=== PATIENT | male | born 1955 | race Caucasian/White ===

== ENCOUNTER 2017-07-03 07:48 | Day surgery (SDC) | payer OTHER, MEDICARE, SELFPAY | END 2017-07-03 09:20 | disposition home or self-care (01) | PROVIDERS: Family Provider Family Medicine; Visit Provider Internal Medicine Gastroenterology | DX: Z12.11 Encounter for screening for malignant neoplasm of colon (principal); K63.5 Polyp of colon; K57.30 Diverticulosis of large intestine without perforation or abscess without bleeding; K64.1 Second degree hemorrhoids | CPT/HCPCS: 45380 ==

== ENCOUNTER → 2017-09-29 09:34 | Outpatient (CLI) | payer OTHER, MEDICARE, SELFPAY ==
--- NOTE | 2017-09-29 09:46 | XR_ITS ---
EXAM: XR lumbar spine min 4V HISTORY: ITS.REASON: INSTABILITY RT KNEE,LOW BACK PAIN,RT HIP PAIN ORDERING PHYSICIAN: Vivi Connell PATIENT AGE: 62 years COMPARISON: None FINDINGS: There is normal alignment. There is diffuse calcification of the anterior longitudinal ligament in the lower thoracic spine and upper lumbar spine with bridging anterior osteophytes in the lumbar spine. No fracture or dislocation is evident. There is mild multilevel degenerative disc disease in the lumbar spine. No lytic changes. Incidental note is made of bilateral nephrolithiasis measuring up to 5 mm in the mid polar region on the left. There is also sclerosis of the superior aspect of the SI joints. Multiple surgical clips are present in the right abdomen. There is mild kyphosis of the lower thoracic spine. IMPRESSION: 1. Multiple bridging osteophytes with anterior longitudinal ligament calcification and fusion of the superior aspect of the SI joints. These findings are suggestive of ankylosing spondylitis. Imaging differential diagnosis would include diffuse idiopathic skeletal hyperostosis. 2. Bilateral nephrolithiasis
--- NOTE | 2017-09-29 09:46 | XR_ITS ---
XR knee RT 3V HISTORY: ITS.REASON: INSTABILITY RT KNEE,LOW BACK PAIN,RT HIP PAIN ORDERING PHYSICIAN: Vivi Connell PATIENT AGE: 62 years COMPARISON: None FINDINGS: There are moderate tricompartmental osteoarthritic changes of the lateral compartment and patellofemoral joint with mild osteoarthritis of the medial compartment. No fracture or dislocation. No lytic or blastic change. IMPRESSION: Osteoarthritis of the right knee
--- NOTE | 2017-09-29 09:46 | XR_ITS ---
XR hip RT 2-3V w/pelvis HISTORY: ITS.REASON: INSTABILITY RT KNEE,LOW BACK PAIN,RT HIP PAIN ORDERING PHYSICIAN: Vivi Connell PATIENT AGE: 62 years COMPARISON: None FINDINGS: Moderate osteoarthritic changes are present involving the right hip with decrease in the joint space and moderate osteophyte formation. No fracture or dislocation. No lytic or blastic change. Incidental note made of moderate osteoarthritis of the left hip seen on the AP view of the pelvis. IMPRESSION: Moderate osteoarthritic changes of the hips.
== END ==
PROVIDERS: PCP Family Medicine; Visit Provider Nurse Practitioner Family
DX: M23.51 Chronic instability of knee, right knee (principal); M54.5 Low back pain
CPT/HCPCS: 72110; 73502; 73562

== ENCOUNTER → 2017-10-14 08:33 | Outpatient (CLI) | payer OTHER, MEDICARE, SELFPAY ==
--- NOTE | 2017-10-14 08:35 | MR_ITS ---
MR lumbar spine wo con, MR 3-d myelogram/MRCP HISTORY: PT States Rt hip, leg pain X 2 months. Rt knee pain x years. Lt foot numbness and tingling. ITS.REASON: ABNORMAL X-RAY, ANKYLOSING SPONDYLITIS OF LUMBAR REGION ORDERING PHYSICIAN: En Lawrence MD PATIENT AGE: 62 years COMPARISON: Prior X-ray 09-29-17 TECHNIQUE: Standard multiplanar multiecho sequences are performed without contrast. 3-D MIP and myelographic images are also rendered and reviewed FINDINGS: There is normal alignment. The spinal cord ends at the T12 level. There is ankylosis of the lower thoracic spine and upper lumbar spine to the L2-L3 level. With isointensity of the disc spaces at T11-T12 and T12-L1 T11-T12, T12-L1, L1-L2, L2-L3: Degenerative disc disease present at these levels. Mild facet and ligamentum hypertrophy at L2-L3. L3-L4: Mild concentric bulging disc along with facet and ligamentum hypertrophy with mild bilateral foraminal narrowing. There is increased T2 signal involving the posterior and central aspect of the disc suggest a small annular tear. L4-5: Mild concentric bulging disc slightly eccentric towards the right with facet hypertrophic change. L5-S1: Unremarkable. No disc herniation or canal stenosis. IMPRESSION: 1. 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 2. Mild lumbar spondylosis as described above with minimal bulging disc, degenerative disc disease and facet ligamentum flavum hypertrophy. Please see above for detailed description at each level 3. No canal stenosis or disc herniation evident IMPRESSION:
== END ==
PROVIDERS: Family Provider Family Medicine; PCP Family Medicine; Visit Provider Family Medicine
DX: R93.8 Abnormal findings on diagnostic imaging of other specified body structures (principal); M45.6 Ankylosing spondylitis lumbar region
CPT/HCPCS: 72148; 76376

== ENCOUNTER → 2019-09-05 09:16 | Outpatient (CLI) | payer OTHER, MEDICARE, SELFPAY ==
--- NOTE | 2019-09-05 09:32 | ECG_ITS ---
APPROVED REPORT Exam: Resting ECG HR:62 bpm ECG Measurements Heart Rate 62 AXES LA 156 P 10 QRSd 82 QRS 26 QT 376 T 2 QTc 381 <Conclusion> Normal sinus rhythm Normal ECG Electronically signed by : Piyush Yee, 09/05/2019 11:47:57
[2019-09-05 14:32] LABS: Basophils % 0.5 % (0.1-2.0); Eosinophils # 0.2 K/mm3 (0.0-0.4); Hematocrit 42.5 % (42.0-52.0); Hemoglobin 14.2 g/dL (14.1-18.0); Lymphocytes % 13.4 % (10-50); Mean Corpuscular HGB Conc 33.3 g/dL (31.8-35.4); Mean Corpuscular Hemoglobin 30.5 pg (27.0-31.2); Mean Corpuscular Volume 91.4 fl (80-94); Monocytes # 0.3 K/mm3 (0.1-1.0); Neutrophils # 6.1 K/mm3 (1.8-7.8); Neutrophils % 79.2 % (37.0-80.0); Platelet Count 207 K/mm3 (142-424); Red Blood Count 4.65 M/mm3 (4.60-6.20); Red Cell Distribution Width 14.5 % (11.5-17.5); White Blood Count 7.6 K/mm3 (4.8-10.8)
[2019-09-05 17:23] LABS: Alanine Aminotransferase 34 U/L (12-78); Albumin Level 3.9 g/dl (3.5-5.0); Albumin/Globulin Ratio 1.6 (1.1-1.8); Alkaline Phosphatase 92 U/L (38-126); Anion Gap 10.2 mEq/L (5-15); Aspartate Amino Transferase 31 U/L (17-59); Bilirubin,Total 0.3 mg/dl (0.2-1.3); Blood Urea Nitrogen 15 mg/dl (9-20); Calcium 9.7 mg/dl (8.4-10.2); Carbon Dioxide 28 mmol/L (22.0-30.0); Chloride 108 mmol/L (98-107); Estimated Glomerular Filt Rate 55 ml/min (>60); GFR (African American) 67 ML/MIN (>60); Globulin 2.4 g/dL (1.3-3.2); Glucose 157 mg/dl (74-100); HDL Cholesterol 49 mg/dl (40-60); Potassium 4.2 mmoL/L (3.5-5.1); Sodium 142 mmol/L (136-145); Total Protein,Serum 6.3 g/dl (6.3-8.2)
[2019-09-05 17:24] LABS: Chol/HDL Ratio 3.5 (1-3.5); Cholesterol 171 mg/dl (140-200); Triglycerides 176 mg/dl (30-150); VLDL Cholesterol 35 mg/dL (0-40)
[2019-09-05 17:34] LABS: Direct LDL Cholesterol 102.44 mg/dL (100-129)
[2019-09-05 17:41] LABS: Troponin I < 0.01 ng/ml (0.00-0.034)
[2019-09-05 17:54] LABS: Thyroid Stimulating Hormone 2.59 uIU/mL (0.465-4.68)
[2019-09-05 20:39] LABS: Hemoglobin A1C 8.1 % (4.0-6.0)
== END ==
PROVIDERS: PCP Nurse Practitioner Family; Visit Provider Nurse Practitioner Family
DX: R07.9 Chest pain, unspecified (principal); E11.9 Type 2 diabetes mellitus without complications
CPT/HCPCS: 36415; 80053; 80061; 83036; 84443; 84484; 85025; 93005

== ENCOUNTER → 2020-10-25 16:16 | Outpatient (CLI) | payer OTHER, MEDICARE, SELFPAY ==
[2020-10-25 16:33] LABS: Basophils % 0.4 % (0.1-2.0); Eosinophils # 0.2 K/mm3 (0.0-0.4); Eosinophils % 1.8 % (0.1-12.0); Hematocrit 46.3 % (42.0-52.0); Lymphocytes # 1.2 K/mm3 (0.7-4.5); Lymphocytes % 11.9 % (10-50); Mean Corpuscular HGB Conc 32.4 g/dL (31.8-35.4); Mean Corpuscular Hemoglobin 29.9 pg (27.0-31.2); Mean Corpuscular Volume 92.1 fl (80-94); Mean Platelet Volume 8.2 fl (7.4-10.4); Monocytes # 0.4 K/mm3 (0.1-1.0); Monocytes % 4.3 % (1.7-9.3); Neutrophils # 7.9 K/mm3 (1.8-7.8); Neutrophils % 81.6 % (37.0-80.0); Platelet Count 221 K/mm3 (142-424); Red Blood Count 5.03 M/mm3 (4.60-6.20); Red Cell Distribution Width 15.2 % (11.5-17.5); White Blood Count 9.7 K/mm3 (4.8-10.8)
--- NOTE | 2020-10-25 16:33 | XR_ITS ---
PROCEDURE: XR FOREARM LT 2V CLINICAL INDICATION: LOCALIZED SWELLING OF LT FOREARM COMPARISON: No exams were available for comparison FINDINGS: No fracture or dislocation. No lytic or blastic change. There is normal mineralization. The joint spaces are well-preserved. No significant degenerative/arthritic changes. No erosive changes evident. Other findings:Soft tissue swelling is present along the dorsal and proximal aspect of the forearm. No obvious radiopaque foreign body or soft tissue gas. IMPRESSION: Soft tissue swelling otherwise negative Dictated by: Ricardo Awan MD 10/25/2020 17:08 Ricardo Awan MD in [place] 10/25/2020 17:08
[2020-10-25 17:12] LABS: Erythrocyte Sedimentation Rate 16 mm/hr (0-20)
[2020-10-25 18:11] LABS: Uric Acid 8.1 mg/dl (3.5-8.5)
== END ==
PROVIDERS: PCP Nurse Practitioner Family; Visit Provider Nurse Practitioner Family
DX: R22.32 Localized swelling, mass and lump, left upper limb (principal)
CPT/HCPCS: 36415; 73090; 84550; 85025; 85651

== ENCOUNTER → 2020-11-12 07:08 | Outpatient (CLI) | payer OTHER, MEDICARE, SELFPAY ==
--- NOTE | 2020-11-12 | CA_ITS ---
APPROVED REPORT Header Dock: Naz Olson RT(R) Laterality: Bilateral Risk Factors Hypertension: Diabetes Doppler Spectral Velocity Analysis ECA (R) 69.30/10.90 cm/s dICA (L) 51.40/17.30 cm/s Prema (L) 65.50/25.00 cm/s dICA (R) 75.10/25.00 cm/s pICA (L) 55.20/14.10 cm/s Prema (R) 52.70/21.80 cm/s pICA (R) 53.90/17.30 cm/s dCCA (L) 74.50/14.80 cm/s pCCA (L) 101.10/16.40 cm/s dCCA (R) 81.40/20.60 cm/s pCCA (R) 84.00/18.00 cm/s Vert (L) 70.30/20.20 cm/s Vert (R) 53.90/14.80 cm/s ICA/CCA 0.88 ICA/CCA 0.92 Findings Duplex evaluation demonstrates stenosis of the right proximal internal carotid artery <20% with PSV <140 cm/sec, EDV <100 cm/sec, and IC/CC Ratio <4.0. Duplex evaluation demonstrates stenosis of the left proximal internal carotid artery <20% with PSV <140 cm/sec, EDV <100 cm/sec, and IC/CC Ratio <4.0. Conclusion Duplex evaluation demonstrates stenosis of the right proximal internal carotid artery <20% with PSV <140 cm/sec, EDV <100 cm/sec, and IC/CC Ratio <4.0. Duplex evaluation demonstrates stenosis of the left proximal internal carotid artery <20% with PSV <140 cm/sec, EDV <100 cm/sec, and IC/CC Ratio <4.0. Electronically signed by : Doris Edge, 11/13/2020 15:45:11
--- NOTE | 2020-11-12 07:27 | CT_ITS ---
PROCEDURE: CT FOREARM LT WO CON CLINICAL HISTORY: LT FOREARM SWELLING,CELLULITIS COMPARISON: No exams were available for comparison TECHNIQUE: Axial images obtained with sagittal and coronal reformats. All CT scans at the facility use one or more dose reduction, viz: automated exposure control, ma/kV adjustment per patient size (including targeted exams where dose is matched to indication, i.e. head), or iterative reconstruction technique. FINDINGS: There is no evidence of acute fractures or dislocations. Olecranon enthesopathy is noted. Minor degenerative changes of the wrist and elbow joints with minor subchondral cystic changes. The radiocarpal alignment is unremarkable. There is minor soft tissue swelling noted at the posteromedial aspect of the left elbow joint and proximal forearm. No evidence of focal fluid collections within the limitations of unenhanced study. The muscle compartments are otherwise unremarkable. IMPRESSION: No evidence of acute fractures or dislocations. Soft tissue swelling on the posterior aspect of the left elbow joint and left proximal forearm concerning for cellulitis versus bursitis. No focal fluid collections within the limitations of unenhanced study. Dictated by: Doris Edge 11/12/2020 09:47 Doris Edge in [facility] 11/12/2020 09:47
== END ==
PROVIDERS: PCP Nurse Practitioner Family; Visit Provider Nurse Practitioner Family
DX: L03.114 Cellulitis of left upper limb (principal); R22.32 Localized swelling, mass and lump, left upper limb; R42 Dizziness and giddiness
CPT/HCPCS: 73200; 93880

== ENCOUNTER → 2021-03-08 12:30 | Outpatient (CLI) | payer OTHER, MEDICARE, SELFPAY ==
[2021-03-10 08:52] LABS: Testosterone,Total 115 ng/dL (264-916)
== END ==
PROVIDERS: Visit Provider Nurse Practitioner Family
DX: R79.89 Other specified abnormal findings of blood chemistry (principal)
CPT/HCPCS: 36415; 84403

== ENCOUNTER → 2021-03-13 14:15 | Outpatient (CLI) | payer OTHER, MEDICARE, SELFPAY ==
[2021-03-13 14:36] LABS: Basophils # 0.1 K/mm3 (0-0.2); Eosinophils # 0.1 K/mm3 (0.0-0.4); Eosinophils % 1.8 % (0.1-12.0); Hemoglobin 15.3 g/dL (14.1-18.0); Lymphocytes # 1.3 K/mm3 (0.7-4.5); Lymphocytes % 17.9 % (10-50); Mean Corpuscular HGB Conc 31.9 g/dL (31.8-35.4); Mean Corpuscular Hemoglobin 30.3 pg (27.0-31.2); Mean Corpuscular Volume 95.1 fl (80-94); Mean Platelet Volume 8.3 fl (7.4-10.4); Monocytes # 0.3 K/mm3 (0.1-1.0); Monocytes % 3.5 % (1.7-9.3); Neutrophils # 5.7 K/mm3 (1.8-7.8); Neutrophils % 75.7 % (37.0-80.0); Platelet Count 282 K/mm3 (142-424); Red Blood Count 5.05 M/mm3 (4.60-6.20); Red Cell Distribution Width 14.4 % (11.5-17.5); White Blood Count 7.5 K/mm3 (4.8-10.8)
[2021-03-13 15:24] LABS: Alanine Aminotransferase 40 U/L (12-78); Albumin Level 3.7 g/dl (3.5-5.0); Albumin/Globulin Ratio 1.2 (1.1-1.8); Alkaline Phosphatase 98 U/L (38-126); Anion Gap 14.1 mEq/L (5-15); Aspartate Amino Transferase 34 U/L (17-59); Bilirubin,Total 0.4 mg/dl (0.2-1.3); Blood Urea Nitrogen 18 mg/dl (9-20); Calcium 9.3 mg/dl (8.4-10.2); Carbon Dioxide 30 mmol/L (22.0-30.0); Chloride 105 mmol/L (98-107); Estimated Glomerular Filt Rate 60 ml/min (>60); GFR (African American) 73 ML/MIN (>60); Glucose 154 mg/dl (74-100); Potassium 5.1 mmoL/L (3.5-5.1); Sodium 144 mmol/L (136-145); Total Protein,Serum 6.7 g/dl (6.3-8.2)
== END ==
PROVIDERS: Visit Provider Nurse Practitioner Family
DX: R50.9 Fever, unspecified (principal)
CPT/HCPCS: 36415; 80053; 85025

== ENCOUNTER 2021-03-24 15:08 | Inpatient (IN) | payer OTHER, MEDICARE, SELFPAY ==
[2021-03-24] VITALS (8 sets, daily range): BP systolic 120–150; BP diastolic 67–101; PULSE 56–100; RESP 18; TEMP 36.4–36.7; O2SAT 94–98; BMI 37.3; BMI 37.2
[2021-03-24 15:56] LABS: Microscopic, Urine URINE MICROSCOPIC (MICROSCOPIC)
[2021-03-24 15:58] LABS: Appearance,Urine CLEAR (Clear); Blood, Urine 3+ (Negative); Color,Urine YELLOW (Yellow); Glucose,Urine (UA) Negative (Negative); Ketones,Urine TRACE (Negative); Leukocyte Esterase,Urine TRACE (Negative); Nitrate,Urine Negative (Negative); Protein,Urine TRACE (Negative); Specific Gravity, Urine >= 1.030 (1.005-1.030); Urobilinogen,Urine 0.2 EU/dl (0.2)
[2021-03-24 15:58] LABS: Basophils # 0.1 K/mm3 (0-0.2); Basophils % 0.5 % (0.1-2.0); Eosinophils # 0.2 K/mm3 (0.0-0.4); Eosinophils % 1.5 % (0.1-12.0); Hematocrit 47.6 % (42.0-52.0); Hemoglobin 15.3 g/dL (14.1-18.0); Lymphocytes # 0.9 K/mm3 (0.7-4.5); Lymphocytes % 8.7 % (10-50); Mean Corpuscular HGB Conc 32.2 g/dL (31.8-35.4); Mean Corpuscular Hemoglobin 30.2 pg (27.0-31.2); Mean Corpuscular Volume 94.1 fl (80-94); Monocytes # 0.4 K/mm3 (0.1-1.0); Monocytes % 3.7 % (1.7-9.3); Neutrophils # 9.2 K/mm3 (1.8-7.8); Neutrophils % 85.6 % (37.0-80.0); Platelet Count 249 K/mm3 (142-424); Red Blood Count 5.06 M/mm3 (4.60-6.20); Red Cell Distribution Width 14.3 % (11.5-17.5); White Blood Count 10.7 K/mm3 (4.8-10.8)
[2021-03-24 16:01] LABS: Chloride 109 mmol/L (98-107); Sodium 143 mmol/L (136-145)
[2021-03-24 16:02] LABS: MANUAL DIFFERENTIAL MANUAL DIFFERENTIAL (MANUAL DIFF); Potassium 4.5 mmoL/L (3.5-5.1)
[2021-03-24 16:03] LABS: Bilirubin,Urine 1+ (Negative)
[2021-03-24 16:04] LABS: Alanine Aminotransferase 26 U/L (12-78); Albumin Level 3.8 g/dl (3.5-5.0); Albumin/Globulin Ratio 1.2 (1.1-1.8); Alkaline Phosphatase 92 U/L (38-126); Anion Gap 11.5 mEq/L (5-15); Aspartate Amino Transferase 28 U/L (17-59); Bilirubin,Total 0.3 mg/dl (0.2-1.3); Blood Urea Nitrogen 16 mg/dl (9-20); Carbon Dioxide 27 mmol/L (22.0-30.0); Creatinine Clearance Estimated 84 mL/min (50-200); Estimated Glomerular Filt Rate 47 ml/min (>60); GFR (African American) 56 ML/MIN (>60); Globulin 3.2 g/dL (1.3-3.2)
[2021-03-24 16:05] LABS: Glucose 176 mg/dl (74-100)
[2021-03-24 16:06] LABS: Bacteria,Urine 1+ /lpf; RBC,Urine 20-50 #/hpf (0-3)
[2021-03-24 16:08] LABS: Lymphocytes % 17 % (10-50); Monocytes % 1 % (2-9); Neutrophils % 82 % (42-76); Platelet Estimate Normal; RBC Morphology Normal; Total Cells Counted 100
--- NOTE | 2021-03-24 16:10 | CT_ITS ---
PROCEDURE INFORMATION: Exam: CT Abdomen And Pelvis Without Contrast Exam date and time: 03/24/2021 4:10 PM Age: 65 years old Clinical indication: Abdominal pain; Flank; Left; Prior surgery; Surgery date: 6+ months; Surgery type: Esophageal; Additional info: Stone protocol TECHNIQUE: Imaging protocol: Computed tomography of the abdomen and pelvis without contrast. Radiation optimization: All CT scans at this facility use at least one of these dose optimization techniques: automated exposure control; mA and/or kV adjustment per patient size (includes targeted exams where dose is matched to clinical indication); or iterative reconstruction. COMPARISON: CR HIPCMRT XR hip RT 2-3V w/pelvis 09/29/2017 10:35 AM FINDINGS: Lungs: Scarring/atelectasis at the lung bases without acute findings. Mediastinal space: A large hiatal hernia is present. Liver: There is enlargement of the liver, measuring 19 cm. There is a diffuse decrease in hepatic parenchymal density, consistent with fatty infiltration. The liver is otherwise unremarkable. Gallbladder and bile ducts: Prior cholecystectomy. There is no evidence of biliary ductal dilation. Pancreas: Normal. No ductal dilation. Spleen: Normal. No splenomegaly. Adrenal glands: Normal. No mass. Kidneys and ureters: There are multiple right renal collecting system calcifications. The right kidney is otherwise unremarkable. The right ureter is normal. There are multiple left renal collecting system calcifications. There is moderate left hydronephrosis. There is inflammatory left perinephric stranding. There is moderate left hydroureter. At least 4 stones are impacted within the distal left ureter, the smallest measuring 3 mm and the largest measuring up to 6 mm. Stomach and bowel: Evidence of prior gastric surgery and likely gastric pull-through. Consider correlation with surgical history. No bowel obstruction or significant bowel wall thickening. There is moderately excessive colonic stool content. Appendix: A normal appendix is identified. Intraperitoneal space: Multiple mesenteric surgical clips are appreciated. Mild haziness at the mesenteric root. 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 There is no evidence of free intraperitoneal or pelvic fluid. There is no free intraperitoneal air. 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 Vasculature: There are numerous benign phleboliths in the pelvis. The vasculature demonstrates diffuse mild atherosclerotic calcification. Lymph nodes: Unremarkable. No enlarged lymph nodes. Urinary bladder: Submucosal fat deposition within the urinary bladder, this is related to sequela of chronic cystitis or urinary retention. This is of no clinical concern at this time. Urinary bladder appears otherwise unremarkable in its decompressed state. Reproductive: The prostate demonstrates mild nonspecific enlargement. The seminal vesicles are normal. The prostate demonstrates nonspecific parenchymal calcifications. Bones/joints: No acute skeletal pathology. Moderate multilevel degenerative changes of the spine, as manifested by multilevel anterior osteophytes and multilevel decrease in intervertebral disc space. Soft tissues: There is a nonobstructing right inguinal hernia. There is a nonobstructing left inguinal hernia. IMPRESSION: 1. Moderate left obstructive uropathy caused by at least 4 stones impacted in the distal left ureter. 2. Incidental findings as detailed above. Electronically signed by Kimani Castro
--- NOTE | 2021-03-24 16:27 | PC.NURSE ---
Pt to rad.
--- NOTE | 2021-03-24 16:39 | PC.NURSE ---
GONE TO CT
--- NOTE | 2021-03-24 17:56 | PC.NURSE ---
DR TOM ACCEPTED FOR ADMISSION . HOUSE CALLED FOR BED
--- NOTE | 2021-03-24 17:58 | PC.NURSE ---
[id number] bed assignment requested, room 213. all staff notified
--- NOTE | 2021-03-24 18:18 | HMH.EDGENADL ---
ED Disposition Clinical Impression: Left nephrolithiasis Urinary tract infection Qualifiers: Urinary tract infection type: site unspecified Hematuria presence: with hematuria Qualified Code(s): N39.0 - Urinary tract infection, site not specified; R31.9 - Hematuria, unspecified Disposition: Admitted As Inpatient Condition on Discharge: Good - Critical Care Critical Care Time: No Attestation: On 03/24/21, the high probability of a clinically significant, sudden or life threatening deterioration of the following system(s) required my full and direct attention, intervention and personal management. The time I documented below is in addition to time spent performing reported procedures but includes the following listed in this critical care notation. Medical Decision Making - Herbert Inquiry Pt receiving controlled substance: No Vital Signs: 03/24/21 15:11 Temperature 98 F Temperature Source Oral Pulse Rate [Radial] 100 H Respiratory Rate 18 Blood Pressure [Right Radial Artery] 150/101 H Blood Pressure Mean [Right Radial Artery] 117 Blood Pressure Position [Right Radial Artery] Sitting 02 Sat by Pulse Oximetry 98 Oxygen Delivery Method Room Air - Lab Data Lab Results 03/24/21 15:26: Urine Color Yellow, Urine Appearance Clear, Urine pH 6.0, Ur Specific [place] >= 1.030, Urine Protein Trace, Urine Glucose (UA) Negative, Urine Ketones Trace, Urine Blood 3+, Urine Nitrate Negative, Urine Bilirubin 1+ A, Urine Urobilinogen 0.2, Ur Leukocyte Esterase Trace, Urine RBC 20-50, Urine WBC 5-10, Ur Squamous Epith Cells 3-5, Urine Bacteria 1+ 03/24/21 15:45: WBC 10.7, RBC 5.06, Hgb 15.3, Hct 47.6, MCV 94.1 H, MCH 30.2, MCHC 32.2, RDW 14.3, Plt Count 249, MPV 8.0, Neut % (Auto) 85.6 H, Lymph % (Auto) 8.7 L, [place] % (Auto) 3.7, Eos % (Auto) 1.5, Baso % (Auto) 0.5, Neut # (Auto) 9.2 H, Lymph # (Auto) 0.9, [place] # (Auto) 0.4, Eos # (Auto) 0.2, Baso # (Auto) 0.1, Total Counted 100, Neutrophils % (Manual) 82 H, Lymphocytes % (Manual) 17, Monocytes % (Manual) 1 L, Platelet Estimate Normal, RBC Morphology Normal 03/24/21 15:45: Sodium 143, Potassium 4.5, Chloride 109 H, Carbon Dioxide 27, Anion Gap 11.5, BUN 16, Creatinine 1.50 H, Estimated Creat Clear 84, Estimated GFR 47 L, Est GFR ( Amer) 56 L, Glucose 176 H, Calcium 9.0, Total Bilirubin 0.3, AST 28, ALT 26, Alkaline Phosphatase 92, Total Protein 7.0, Albumin 3.8, Globulin 3.2, Albumin/Globulin Ratio 1.2 Result diagrams: 03/24/21 15:45 03/24/21 15:45 Orders (Tests/Meds): ED MEDICATIONS Generic Name Dose Route Start Last Admin Trade Name Freq PRN Reason Stop Dose Admin Ceftriaxone Sodium 2 gm/ 100 mls @ 200 mls/hr 03/24/21 18:00 03/24/21 18:42 Sodium Chloride IV 04/07/21 17:59 200 mls/hr Q12H PADMINI Administration Discontinued Medications Generic Name Dose Route Start Last Admin Trade Name Freq PRN Reason Stop Dose Admin Hydromorphone HCl 1 mg 03/24/21 16:14 03/24/21 16:15 Hydromorphone 2mg/Ml Syringe IV 03/24/21 16:15 1 mg ONCE ONE Administration Hydromorphone HCl 1 mg 03/24/21 18:41 03/24/21 17:38 Hydromorphone 2mg/Ml Syringe IV 03/24/21 18:42 1 mg ONCE ONE Administration Hydromorphone HCl 1 mg 03/24/21 18:45 03/24/21 18:45 Hydromorphone 2mg/Ml Syringe IV 03/24/21 18:46 1 mg ONCE ONE Administration Sodium Chloride 1,000 mls @ 999 mls/hr 03/24/21 15:45 03/24/21 16:03 Sod Chlor 0.9% 1000ml Bag IV 03/24/21 16:45 999 mls/hr .Q1H1M PADMINI Administration Ketorolac Tromethamine 30 mg 03/24/21 16:01 03/24/21 16:03 Ketorolac 30mg/Ml Vial IV 03/24/21 16:02 30 mg ONCE ONE Administration Ondansetron HCl 4 mg 03/24/21 16:01 03/24/21 16:03 Ondansetron 4mg/2ml Vial IV 03/24/21 16:02 4 mg ONCE ONE Administration Ondansetron HCl 4 mg 03/24/21 18:42 03/24/21 18:45 Ondansetron 4mg/2ml Vial IV 03/24/21 18:43 4 mg ONCE ONE Administration Medical Decision Narrative: 65-year-old male with p
[2021-03-24 18:45] LABS: Coronavirus 19, PCR Not Detected (NotDetected); Influenza A, PCR Not Detected (NotDetected); Influenza B, PCR Not Detected (NotDetected)
--- NOTE | 2021-03-24 20:01 | PC.NURSE ---
patient up to floor via wheelchair.
[2021-03-24 22:29] LABS: POC Glucose,Bedside 233 (70-110)
[2021-03-25] VITALS (17 sets, daily range): BP systolic 130–174; BP diastolic 70–97; PULSE 47–69; RESP 14–18; TEMP 36.4–36.7; O2SAT 93–100; BMI 37.2
--- NOTE | 2021-03-25 04:28 | PC.NURSE ---
Pt is A/O x4. Pt denied any pain t/o shift. IV is patent infusing LR @ 125ml/hr. Pt remains on room air. VSS, call light within reach, will continue to monitor.
[2021-03-25 05:59] LABS: POC Glucose,Bedside 112 (70-110)
--- NOTE | 2021-03-25 06:58 | HMH.HP ---
*Admission Date: 03/24/21 *Chief complaint: Hematuria/flank pain *History of present illness: 65-year-old male with history of kidney stones presented to the emergency department with left flank pain and hematuria at home for the last 3 days. Patient was found to have multiple small stones obstructing the left ureter at the left UVJ. Patient required IV narcotics for pain control. Decision was made to admit the patient for urologic consultation. This morning patient's pain is better controlled. He denies passing stones but reports his urine is darker in color. Patient also reports having a urinary tract infection at the beginning of the month. He denies fevers or chills [facility] History I have reviewed the patient's past medical history: Yes Medical History: Reports:: Cancer, Diabetes Mellitus Type 2, Hypertension, Renal Disease, Renal Insufficiency Denies:: MRSA *Have you ever received a pneumonia vaccine?: No *Have you received a flu vaccine this season?: No Other Medical History: Reports: Cataracts, Chemotherapy, Hoarseness, Other (Kidney stones) Laterality Cases: Bilateral: Tonsillectomy Other Surgeries: Yes: Cholecystectomy, Hernia Repair, Ureter Stent Amputation: No Fractures: No - *Social History Last grade of school completed: Some college Smoking Status: Former smoker (quit 25 years ago) Tobacco Type: cigarettes Alcohol Intake: current Alcohol Intake Frequency:: a few times a month Substance Use Type: denies use *Occupational Status:: employed Housing: house Household Members: spouse *Travel in the last 8 weeks: None Family Hx:: No significant family history Review of Systems - Review of Systems Review of systems:: pertinent systems reviewed and negative unless documented below Meds Home Medications Medication Instructions Recorded Confirmed Type Diclofenac Sodium [Diclofenac 75mg 75 mg PO BID 03/24/21 03/24/21 History Tab] Famotidine [Pepcid 20mg Tablet] 20 mg PO HS 03/24/21 03/24/21 History lisinopriL [Lisinopril] 40 mg PO DAILY 03/24/21 03/24/21 History Allergies Allergy/AdvReac Type Severity Reaction Status Date / Time Penicillins [PENICILLINS] Allergy Unknown rash Verified 03/24/21 16:03 PENICILLIN Allergy Unknown MILD RASH Uncoded 06/23/17 15:02 Exam Vital signs and Labs for Last 24 Hours: Temp Pulse Resp BP Pulse Ox 97.6 F 53 L 17 141/74 H 98 03/25/21 04:00 03/25/21 04:00 03/25/21 04:00 03/25/21 04:00 03/25/21 04:00 Laboratory Results - last 24 hr 03/24/21 15:26: Urine Color Yellow, Urine Appearance Clear, Urine pH 6.0, Ur Specific [place] >= 1.030, Urine Protein Trace, Urine Glucose (UA) Negative, Urine Ketones Trace, Urine Blood 3+, Urine Nitrate Negative, Urine Bilirubin 1+ A, Urine Urobilinogen 0.2, Ur Leukocyte Esterase Trace, Urine RBC 20-50, Urine WBC 5-10, Ur Squamous Epith Cells 3-5, Urine Bacteria 1+ 03/24/21 15:45: WBC 10.7, RBC 5.06, Hgb 15.3, Hct 47.6, MCV 94.1 H, MCH 30.2, MCHC 32.2, RDW 14.3, Plt Count 249, MPV 8.0, Neut % (Auto) 85.6 H, Lymph % (Auto) 8.7 L, [place] % (Auto) 3.7, Eos % (Auto) 1.5, Baso % (Auto) 0.5, Neut # (Auto) 9.2 H, Lymph # (Auto) 0.9, [place] # (Auto) 0.4, Eos # (Auto) 0.2, Baso # (Auto) 0.1, Total Counted 100, Neutrophils % (Manual) 82 H, Lymphocytes % (Manual) 17, Monocytes % (Manual) 1 L, Platelet Estimate Normal, RBC Morphology Normal 03/24/21 15:45: Sodium 143, Potassium 4.5, Chloride 109 H, Carbon Dioxide 27, Anion Gap 11.5, BUN 16, Creatinine 1.50 H, Estimated Creat Clear 84, Estimated GFR 47 L, Est GFR ( Amer) 56 L, Glucose 176 H, Calcium 9.0, Total Bilirubin 0.3, AST 28, ALT 26, Alkaline Phosphatase 92, Total Protein 7.0, Albumin 3.8, Globulin 3.2, Albumin/Globulin Ratio 1.2 03/24/21 18:41: SARS-CoV-2 (PCR) Not detected, Influenza A Untype (PCR) Not detected, Influenza Type B (PCR) Not detected 03/24/21 21:55: POC Glucose 233 H 03/25/21 05:21: POC Glucose 112 H I & O for Last 24 hours: Intake & Output 03/22/21 03/23/2103/24
[2021-03-25 07:04] LABS: Basophils % 0.5 % (0.1-2.0); Eosinophils # 0.2 K/mm3 (0.0-0.4); Eosinophils % 2.6 % (0.1-12.0); Hematocrit 41.1 % (42.0-52.0); Lymphocytes # 1.2 K/mm3 (0.7-4.5); Lymphocytes % 17.7 % (10-50); Mean Corpuscular HGB Conc 30.7 g/dL (31.8-35.4); Mean Corpuscular Hemoglobin 29.7 pg (27.0-31.2); Mean Corpuscular Volume 96.9 fl (80-94); Mean Platelet Volume 8.3 fl (7.4-10.4); Monocytes # 0.3 K/mm3 (0.1-1.0); Monocytes % 4.8 % (1.7-9.3); Neutrophils % 74.5 % (37.0-80.0); Platelet Count 206 K/mm3 (142-424); Red Blood Count 4.25 M/mm3 (4.60-6.20); Red Cell Distribution Width 14.4 % (11.5-17.5); White Blood Count 6.7 K/mm3 (4.8-10.8)
[2021-03-25 07:11] LABS: Prothrombin Time 10.9 seconds (10.1-12.5)
[2021-03-25 07:12] LABS: Anion Gap 9.9 mEq/L (5-15); Blood Urea Nitrogen 17 mg/dl (9-20); Calcium 8.5 mg/dl (8.4-10.2); Carbon Dioxide 30 mmol/L (22.0-30.0); Chloride 108 mmol/L (98-107); Creatinine Clearance Estimated 90 mL/min (50-200); Estimated Glomerular Filt Rate 51 ml/min (>60); GFR (African American) 61 ML/MIN (>60); Glucose 120 mg/dl (74-100); Potassium 4.9 mmoL/L (3.5-5.1); Sodium 143 mmol/L (136-145)
--- NOTE | 2021-03-25 07:27 | HMH.PHAVTE ---
[facility] Pharmacy VTE Monitoring - Patient Demographics Admission date: 03/24/21 Report Date: 03/25/21 Time: 07:28 Allergies/Adverse Reactions: Patient Allergies Penicillins [PENICILLINS] Allergy (Unknown, Verified 03/24/21 16:03) rash PENICILLIN Allergy (Unknown, Uncoded 06/23/17 15:02) MILD RASH Height: 1.83 m Weight: 124.738 kg Patient Problems: Current Active Problems Left nephrolithiasis (Acute) Urinary tract infection (Acute) - VTE Risk Labs: VTE Related Lab Results Hgb 15.3 g/dL (14.1-18.0) 03/24/21 15:45 Hct 47.6 % (42.0-52.0) 03/24/21 15:45 Plt Count 249 K/mm3 (142-424) 03/24/21 15:45 BUN 16 mg/dl (9-20) 03/24/21 15:45 Creatinine 1.50 mg/dl (0.66-1.25) H 03/24/21 15:45 Estimated Creat Clear 84 mL/min (50-200) 03/24/21 15:45 VTE Score: 3 VTE Risk Level: Low Risk - Prophylaxis VTE Prophylaxis Ordered?: Yes Types of VTE Prophylaxis: TEDS Knee High Location of Applied Device: Bilateral Lower Extremeties
--- NOTE | 2021-03-25 07:28 | HMH.PHAINT ---
MEDICATION RECONCILIATION COMPLETED ON PATIENT USING EXTERNAL FILL HISTORY FROM PHARMACY. -SARAH GONZALES, LUDWIGD
[2021-03-25 07:39] LABS: Hemoglobin 12.6 g/dL (14.1-18.0)
[2021-03-25 07:42] LABS: INR 0.92 (0.9-1.1)
--- NOTE | 2021-03-25 10:04 | PC.NURSE ---
1000 Pt leaving department with surgery
--- NOTE | 2021-03-25 11:57 | XR_ITS ---
PROCEDURE: XR KUB CLINICAL INDICATION: STENT PLACEMENT IN OR COMPARISON: No exams were available for comparison FINDINGS: Fluoroscopy time: 1.44 minutes. Two view submitted with the C-arm demonstrates a left ureteral stent in place. The proximal aspect is curled in the left upper quadrant and distal aspect curled in the region of the urinary bladder IMPRESSION: Status post left-sided ureteral stent placement with fluoroscopic assistance Dictated by: Ricardo Awan MD 03/25/2021 15:49 Ricardo Awan MD in [place] 03/25/2021 15:49
--- NOTE | 2021-03-25 12:20 | HMH.ANESI ---
[facility] Anesthesia Record Part I Intake, IV Amount: 900 Estimated blood loss (mL): 5 Urine output (mL): 0 Blood Products used (#): none Blood Pressure: 130/77 SaO2: 99 Pulse Rate: 63 Respiratory Rate: 14 Temperature: 97.6 F Patient is:: Drowsy Stable to PACU at:: 12:16
--- NOTE | 2021-03-25 12:23 | P.PN_ITS ---
[facility] Anesthesia Checklist - Patient Identification Patient Identification: Verbal (Name & ) - Structural Data Admitted From: Home Planned Operative Procedure/s: Left Uretroscopy Consent for Planned Operative Procedure(s) Verified: Yes Verified Documents: Surgical Consent - NPO Status Verified Time NPO: 00:00 - Chart Verification Results Verified: None - Cardiovascular Assessment Heart Sounds: S1 & S2 Pulse Strength: Baseline Pulse Rhythm: Regular - Airway Assessment C-Spine Mobility Assessed: Yes TMJ Mobility Assessed: Yes Dentition: Good Dentition - Neurological Assessment Level of Consciousness: Awake, Alert, Appropriate - Anesthesia Plan Anesthesia Risk discussed: Yes ASA Class: III Anesthesia Type: General [facility] History I have reviewed the patient's past medical history: Yes Medical History: Reports:: Cancer, Diabetes Mellitus Type 2, Hypertension, Renal Disease, Renal Insufficiency Denies:: MRSA *Have you ever received a pneumonia vaccine?: No *Have you received a flu vaccine this season?: No Other Medical History: Reports: Cataracts, Chemotherapy, Hoarseness, Other (Kidney stones) Anesthesia experience/problems:: No issues Laterality Cases: Bilateral: Tonsillectomy Other Surgeries: Yes: Cholecystectomy, Hernia Repair, Ureter Stent Amputation: No Fractures: No - *Social History Last grade of school completed: Some college Smoking Status: Former smoker (quit 25 years ago) Tobacco Type: cigarettes Alcohol Intake: current Alcohol Intake Frequency:: a few times a month Substance Use Type: denies use *Occupational Status:: employed Housing: house Household Members: spouse *Travel in the last 8 weeks: None Family Hx:: No significant family history
--- NOTE | 2021-03-25 12:39 | HMH.CONS ---
*Admission Date: 03/24/21 *Reason for consult:: Left ureteral calculi with obstruction *History of present illness: Patient is a 65-year-old white male with a history of nephrolithiasis. He presented to the hospital yesterday with gross hematuria and had left-sided flank pain for about [address] scan showed 3 distal ureteral calculi with evidence of hydronephrosis. There is also a 8 to 9 mm stone in the left kidney and multiple small right kidney stones. Patient was admitted for pain control and urologic consultation. His white count was normal at 10.7. His creatinine is elevated at 1.5. He was given a gram of Rocephin and states he has been relatively comfortable overnight. He states he has undergone multiple lithotripsies in the past for stones. [facility] History Medical History: Reports:: Cancer, Diabetes Mellitus Type 2, Hypertension, Renal Disease, Renal Insufficiency Denies:: MRSA *Have you ever received a pneumonia vaccine?: No *Have you received a flu vaccine this season?: No Other Medical History: Reports: Cataracts, Chemotherapy, Hoarseness, Other (Kidney stones) Anesthesia experience/problems:: No issues Laterality Cases: Bilateral: Tonsillectomy Other Surgeries: Yes: Cholecystectomy, Hernia Repair, Ureter Stent Amputation: No Fractures: No - *Social History Last grade of school completed: Some college Smoking Status: Former smoker (quit 25 years ago) Tobacco Type: cigarettes Alcohol Intake: current Alcohol Intake Frequency:: a few times a month Substance Use Type: denies use *Occupational Status:: employed Housing: house Household Members: spouse *Travel in the last 8 weeks: None Family Hx:: No significant family history Review of Systems - Review of Systems Review of systems:: pertinent systems reviewed and negative unless documented below Meds Home Medications Medication Instructions Recorded Confirmed Type Diclofenac Sodium [Diclofenac 75mg 75 mg PO BIDWMEAL 03/24/21 03/25/21 History Tab] Famotidine [Pepcid 20mg Tablet] 20 mg PO BIDP PRN 03/24/21 03/25/21 History lisinopriL [Lisinopril] 20 mg PO DAILY 03/24/21 03/25/21 History Allergies Allergy/AdvReac Type Severity Reaction Status Date / Time Penicillins [PENICILLINS] Allergy Unknown rash Verified 03/24/21 16:03 Exam Vital signs and Labs for Last 24 Hours: Temp Pulse Resp BP Pulse Ox 97.5 F L 60 14 159/97 H 97 03/25/21 12:36 03/25/21 12:36 03/25/21 12:36 03/25/21 12:36 03/25/21 12:36 Laboratory Results - last 24 hr 03/24/21 15:26: Urine Color Yellow, Urine Appearance Clear, Urine pH 6.0, Ur Specific [place] >= 1.030, Urine Protein Trace, Urine Glucose (UA) Negative, Urine Ketones Trace, Urine Blood 3+, Urine Nitrate Negative, Urine Bilirubin 1+ A, Urine Urobilinogen 0.2, Ur Leukocyte Esterase Trace, Urine RBC 20-50, Urine WBC 5-10, Ur Squamous Epith Cells 3-5, Urine Bacteria 1+ 03/24/21 15:45: WBC 10.7, RBC 5.06, Hgb 15.3, Hct 47.6, MCV 94.1 H, MCH 30.2, MCHC 32.2, RDW 14.3, Plt Count 249, MPV 8.0, Neut % (Auto) 85.6 H, Lymph % (Auto) 8.7 L, [place] % (Auto) 3.7, Eos % (Auto) 1.5, Baso % (Auto) 0.5, Neut # (Auto) 9.2 H, Lymph # (Auto) 0.9, [place] # (Auto) 0.4, Eos # (Auto) 0.2, Baso # (Auto) 0.1, Total Counted 100, Neutrophils % (Manual) 82 H, Lymphocytes % (Manual) 17, Monocytes % (Manual) 1 L, Platelet Estimate Normal, RBC Morphology Normal 03/24/21 15:45: Sodium 143, Potassium 4.5, Chloride 109 H, Carbon Dioxide 27, Anion Gap 11.5, BUN 16, Creatinine 1.50 H, Estimated Creat Clear 84, Estimated GFR 47 L, Est GFR ( Amer) 56 L, Glucose 176 H, Calcium 9.0, Total Bilirubin 0.3, AST 28, ALT 26, Alkaline Phosphatase 92, Total Protein 7.0, Albumin 3.8, Globulin 3.2, Albumin/Globulin Ratio 1.2 03/24/21 18:41: SARS-CoV-2 (PCR) Not detected, Influenza A Untype (PCR) Not detected, Influenza Type B (PCR) Not detected 03/24/21 21:55: POC Glucose 233 H 03/25/21 05:21: POC Glucose 112 H 03/25/21 06:32: WBC 6.7 D, RBC 4.25 L, Hgb 12.6 L D, Hc
--- NOTE | 2021-03-25 12:43 | HMH.OPNOTE ---
Date of procedure: 03/25/21 Pre-op Diagnosis:: Left distal ureteral calculi with obstruction Post-op Diagnosis:: Same Procedure performed:: Left ureteroscopy, laser lithotripsy, stone extraction and left stent placement Surgeon:: Rene Bnudy MD CARRY ALL DRIVER:: Other (elizabeth) Anesthesia: GETA Estimated blood loss (mL): 0 Clinical Note:: 65-year-old white male admitted yesterday with left renal colic. He has multiple distal ureteral calculi and presents for urologic management. Operative findings:: There were multiple stones in the distal ureter. They were very hard and difficult to break with the laser but they were eventually broken and removed. Operative note:: Patient taken to the operating room after informed consent was obtained. Was placed on the operating room table in the supine position and general anesthesia administered. 2 g of Ancef were administered. Sequential compression devices placed. He was then placed into the dorsal lithotomy position and prepped and draped in the standard surgical fashion. A 22 [place]ian cystoscope passed into the urethra and into the bladder without difficulty. The bladder was examined in a systematic fashion. No abnormalities were noted. The ureteral orifices in their normal anatomic position. A 0.035 sensor guidewire passed into the left ureteral orifice and it passed into the left renal pelvis with minimal resistance. The distal ureteral orifice then dilated with a 4 x 15 balloon dilator for 2 minutes at 12 kim. After the balloon deflated the semirigid ureteroscope passed into the bladder and into the left ureter and up to the ureteral calculi. Stones were too big to be removed in 1 piece of the 200 nm laser fiber was passed into the ureter through the scope and stones were broken up into smaller pieces. Stones were noted to be very hard and difficult to break up with the laser. The stones were broken up the laser removed and our 1.9 [place]ian stone basket passed into the scope and all stones were removed without difficulty. Some of the stones were sent off for analysis. The ureteroscope was removed and our cystoscope was replaced over the guidewire and a 6 x 26 [place]ian stent was then passed over the guidewire and under fluoroscopy the guidewire was removed and the good curl was noted proximally and distally. The string was left on for later removal. Patient tolerated procedure well discharged to recovery in stable condition. Same Condition: stable Disposition: PACU Specimens:: Multiple stones Complications:: None
--- NOTE | 2021-03-25 12:59 | PC.NURSE ---
[id number] Report received from Breanna Mitchell RN in PACU.
--- NOTE | 2021-03-25 16:23 | HMH.DCSUM ---
General - General Admission date:: 03/24/21 Discharge date: 03/25/21 HPI HPI: 65-year-old male with history of kidney stones presented to the emergency department with left flank pain and hematuria at home for the last 3 days. Patient was found to have multiple small stones obstructing the left ureter at the left UVJ. Patient required IV narcotics for pain control. Decision was made to admit the patient for urologic consultation. This morning patient's pain is better controlled. He denies passing stones but reports his urine is darker in color. Patient also reports having a urinary tract infection at the beginning of the month. He denies fevers or chills Hospital Course Hospital Course: Patient underwent cystoscopy and ureteroscopy with successful removal of the stones and ureteral stent placement. Patient was stable post operatively and was discharged home later in the day. Objective Vital signs: Temp Pulse Resp BP Pulse Ox 98.0 F 50 L 18 148/78 H 93 L 03/25/21 13:15 03/25/21 13:15 03/25/21 13:15 03/25/21 13:15 03/25/21 13:15 Results Labs on day of discharge: Labs from last 24 hours 03/25/21 03/25/21 03/25/21 06:32 06:32 06:32 WBC 6.7 D RBC 4.25 L Hgb 12.6 L D Hct 41.1 L MCV 96.9 H MCH 29.7 MCHC 30.7 L RDW 14.4 Plt Count 206 MPV 8.3 Neut % (Auto) 74.5 Lymph % (Auto) 17.7 [place] % (Auto) 4.8 Eos % (Auto) 2.6 Baso % (Auto) 0.5 Neut # (Auto) 5.0 Lymph # (Auto) 1.2 [place] # (Auto) 0.3 Eos # (Auto) 0.2 Baso # (Auto) 0.0 PT 10.9 INR 0.92 Sodium 143 Potassium 4.9 Chloride 108 H Carbon Dioxide 30 Anion Gap 9.9 BUN 17 Creatinine 1.40 H Estimated Creat Clear 90 Estimated GFR 51 L Est GFR ( Amer) 61 Glucose 120 H D POC Glucose Calcium 8.5 SARS-CoV-2 (PCR) Influenza A Untype (PCR) Influenza Type B (PCR) 03/25/21 03/24/21 03/24/21 05:21 21:55 18:41 WBC RBC Hgb Hct MCV MCH MCHC RDW Plt Count MPV Neut % (Auto) Lymph % (Auto) [place] % (Auto) Eos % (Auto) Baso % (Auto) Neut # (Auto) Lymph # (Auto) [place] # (Auto) Eos # (Auto) Baso # (Auto) PT INR Sodium Potassium Chloride Carbon Dioxide Anion Gap BUN Creatinine Estimated Creat Clear Estimated GFR Est GFR ( Amer) Glucose POC Glucose 112 H 233 H Calcium SARS-CoV-2 (PCR) Not detected Influenza A Untype (PCR) Not detected Influenza Type B (PCR) Not detected DS: Diagnosis - Discharge Diagnosis (1) Left nephrolithiasis Status: Acute Discharge Plan - Patient Discharge Instructions ACTIVITY: Continue current activity DIET: continue same diet Additional Instructions: Follow up with MD as scheduled Patient Instructions: DI for Kidney Stones, DI for Urinary Tract Infection (UTI) - Follow up Plan Follow up with: Rene Bundy MD [Staff Physician] - 04/01/21 1:00 pm Disposition: Home, Self-Care Condition at discharge:: Improved Home Medications: Home Medications Medication Instructions Recorded Confirmed Type Diclofenac Sodium [Diclofenac 75mg 75 mg PO BIDWMEAL 03/24/21 03/25/21 History Tab] Famotidine [Pepcid 20mg Tablet] 20 mg PO BIDP PRN 03/24/21 03/25/21 History lisinopriL [Lisinopril] 20 mg PO DAILY 03/24/21 03/25/21 History Prescriptions/Medication Reconciliation: Continued Diclofenac Sodium [Diclofenac 75mg Tab] 75 mg PO BIDWMEAL Famotidine [Pepcid 20mg Tablet] 20 mg PO BIDP PRN PRN Reason: Heartburn lisinopriL [Lisinopril] 20 mg PO DAILY - Problem Reconciliation Problems Reviewed?: Yes
--- NOTE | 2021-03-25 17:00 | PC.NURSE ---
[id number] Discharge education provided to pt, questions encouraged and answered
--- NOTE | 2021-03-25 17:04 | PC.NURSE ---
1700 Pt reports that after urinating twice, he is unable to see string from stent that was placed. RN unable to visualize stent. Will notify
[2021-03-30 17:18] LABS: Specimen Type Left Ureter
== END 2021-03-25 17:55 | disposition home or self-care (01) | DRG 661 ==
LOC: ER 15:17 → 2ND 18:09
PROVIDERS: Urology; Admitting Provider Emergency Medicine; Emergency Provider Emergency Medicine; PCP Nurse Practitioner Family; Visit Provider Family Medicine
PROC: 0TC78ZZ Extirpation of Matter from Left Ureter, Via Natural or Artificial Opening Endoscopic (ICD-10-PCS; CPT 52352; principal; 2021-03-25 10:45)
DX: N20.1 Calculus of ureter (principal); Z20.822 Contact with and (suspected) exposure to COVID-19; Z87.891 Personal history of nicotine dependence; E11.9 Type 2 diabetes mellitus without complications; I10 Essential (primary) hypertension
CPT/HCPCS: 52356; 36415; 74018; 74176; 76000; 80048; 80053; 81001; 82370; 82962; 85007; 85025; 85610; 96365; 96366; 96375; 96376; 99284; C2617; C9803; J2405; J2710; U0003; U0005

== ENCOUNTER → 2021-04-01 13:56 | Outpatient (CLI) | payer OTHER, MEDICARE, SELFPAY ==
--- NOTE | 2021-04-01 14:05 | XR_ITS ---
PROCEDURE: XR KUB CLINICAL INDICATION: ureteral stone COMPARISON: CT CT ABDOMEN PELVIS WO CON from 03/24/2021 CR XR KUB from 03/25/2021 FINDINGS: There are bilateral renal calculi with a cluster of stones in the lower pole on the right the largest measuring 7 mm. Two small stones noted in the lower pole on the left and a 9 mm stone in the mid polar region on the left. Left ureteral stent is in place with the proximal aspect overlying the mid polar region of the left kidney in the distal aspect overlying the renal pelvis centrally. No obvious ureteral calculi.. There are multiple surgical clips in the upper abdomen and right upper quadrant. The distal aspect of the ureteral stent Degenerative changes lumbar spine and hips. IMPRESSION: Bilateral nephrolithiasis with left ureteral stent in place. Dictated by: Ricardo Awan MD 04/01/2021 14:29 Ricardo Awan MD in [place] 04/01/2021 14:29
== END ==
PROVIDERS: PCP Family Medicine; Visit Provider Urology
DX: N20.0 Calculus of kidney (principal); N20.1 Calculus of ureter
CPT/HCPCS: 74018

== ENCOUNTER → 2021-04-10 11:28 | Outpatient (CLI) | payer OTHER, MEDICARE, SELFPAY ==
[2021-04-10 11:32] LABS: MANUAL DIFFERENTIAL MANUAL DIFFERENTIAL (MANUAL DIFF)
[2021-04-10 11:57] LABS: Basophils % 0.5 % (0.1-2.0); Eosinophils # 0.3 K/mm3 (0.0-0.4); Hematocrit 45.1 % (42.0-52.0); Hemoglobin 14.6 g/dL (14.1-18.0); Lymphocytes # 0.9 K/mm3 (0.7-4.5); Lymphocytes % 11.2 % (10-50); Mean Corpuscular HGB Conc 32.4 g/dL (31.8-35.4); Mean Corpuscular Hemoglobin 30.3 pg (27.0-31.2); Mean Corpuscular Volume 93.7 fl (80-94); Mean Platelet Volume 8.6 fl (7.4-10.4); Monocytes # 0.3 K/mm3 (0.1-1.0); Monocytes % 3.5 % (1.7-9.3); Neutrophils # 6.7 K/mm3 (1.8-7.8); Neutrophils % 81.8 % (37.0-80.0); Platelet Count 277 K/mm3 (142-424); Red Blood Count 4.81 M/mm3 (4.60-6.20); Red Cell Distribution Width 15.1 % (11.5-17.5); White Blood Count 8.2 K/mm3 (4.8-10.8)
[2021-04-10 12:52] LABS: Chloride 105 mmol/L (98-107); Potassium 4.6 mmoL/L (3.5-5.1); Sodium 141 mmol/L (136-145)
[2021-04-10 12:55] LABS: Anion Gap 12.6 mEq/L (5-15); Blood Urea Nitrogen 14 mg/dl (9-20); Calcium 9.2 mg/dl (8.4-10.2); Carbon Dioxide 28 mmol/L (22.0-30.0); Estimated Glomerular Filt Rate 75 ml/min (>60); GFR (African American) 90 ML/MIN (>60); Glucose 159 mg/dl (74-100)
[2021-04-10 17:00] LABS: Eosinophils % 2 % (0-3); Lymphocytes % 8 % (10-50); Monocytes % 4 % (2-9); Neutrophils % 85 % (42-76); Platelet Estimate Normal; Total Cells Counted 100
== END ==
PROVIDERS: Visit Provider Urology
DX: Z01.812 Encounter for preprocedural laboratory examination (principal); Z11.52 Encounter for screening for COVID-19; N20.1 Calculus of ureter; N20.0 Calculus of kidney
CPT/HCPCS: 36415; 80048; 85007; 85014; 85018; 85048; 85049; C9803; U0003; U0005

== ENCOUNTER 2021-04-12 09:40 | Day surgery (SDC) | payer OTHER, MEDICARE, SELFPAY ==
[2021-04-11 12:22] VITALS: BMI 38.0
[2021-04-12] VITALS (10 sets, daily range): BP systolic 128–163; BP diastolic 78–98; PULSE 64–91; RESP 12–18; TEMP 36.2–36.8; O2SAT 94–98
--- NOTE | 2021-04-12 09:46 | XR_ITS ---
PROCEDURE: XR KUB CLINICAL INDICATION: ureteral stone COMPARISON: CT CT ABDOMEN PELVIS WO CON from 03/24/2021 FINDINGS: This is a rather gasless appearing abdomen. There is a left ureteral stent extending from the renal pelvis to the bladder floor. There is a 7 mm calculus sitting just lateral to the pigtail of multiple surgical clips are seen in the right upper quadrant. The stent midpole left kidney.. IMPRESSION: Satisfactory placement of left ureteral stent, left renal calculus as noted which appears unchanged in size and location from the CT scan 03/24/2021 Dictated by: Dr. Kip Rene MD 04/12/2021 10:15 Dr. Kip Rene MD in [place] 04/12/2021 10:15
[2021-04-12 10:18] LABS: POC Glucose,Bedside 119 (70-110)
--- NOTE | 2021-04-12 10:20 | P.PN_ITS ---
[facility] Anesthesia Checklist - Patient Identification Patient Identification: Arm Band - Structural Data Admitted From: Home Planned Operative Procedure/s: ESWL Consent for Planned Operative Procedure(s) Verified: Yes - NPO Status Verified Time NPO: 00:00 - Additional verifications Anesthesia Reactions: No Hx Blood Transfusions: Yes Blood Transfusion Reaction: No - Airway Assessment C-Spine Mobility Assessed: Yes TMJ Mobility Assessed: Yes Dentition: Good Dentition - Neurological Assessment Level of Consciousness: Awake Hx Seizures: No Numbness or tingling in extremities: No - Anesthesia Plan Anesthesia Risk discussed: Yes Anesthesia Plan: Verified ASA Class: III Anesthesia Type: General [facility] History I have reviewed the patient's past medical history: Yes Medical History: Reports:: Cancer (esophageal cancer stage 3), Diabetes Mellitus Type 2, Hypertension, Kidney Stones, Renal Disease, Renal Insufficiency Denies:: Diabetes Mellitus Type 1, Internal Pacemaker, MRSA, Seizures *Have you ever received a pneumonia vaccine?: Yes (2012) *Have you received a flu vaccine this season?: Yes (2019) Other Medical History: Reports: Cataracts, Chemotherapy, Hoarseness, Other. Denies: Blood Transfusion Reaction Anesthesia experience/problems:: None Laterality Cases: Bilateral: Tonsillectomy Other Surgeries: Yes: Cholecystectomy, Colonoscopy, Hernia Repair, Ureter Stent. No: Pacemaker Amputation: No Fractures: No - *Social History Last grade of school completed: Advanced degree Smoking Status: Former smoker Tobacco Type: cigarettes Alcohol Intake: never Alcohol Intake Frequency:: a few times a month Substance Use Type: denies use *Occupational Status:: employed Housing: house Household Members: spouse *Travel in the last 8 weeks: None Family Hx:: No significant family history
--- NOTE | 2021-04-12 13:58 | P.PN_ITS ---
[facility] Anesthesia Record Part I Intake, IV Amount: 1,500 Estimated blood loss (mL): 0 Urine output (mL): 0 Blood Pressure: 128/78 SaO2: 94 Pulse Rate: 80 Respiratory Rate: 12 Temperature: 97.3 F Patient is:: Awake, Stable Stable to PACU at:: 13:55
--- NOTE | 2021-04-12 14:01 | HMH.OPNOTE ---
Date of procedure: 04/12/21 Pre-op Diagnosis:: Bilateral nephrolithiasis Post-op Diagnosis:: Same Procedure performed:: Bilateral ESWL Surgeon:: Rene Bundy MD TELECINE OPERATOR:: Paulie Santiago Anesthesia: LMA Estimated blood loss (mL): 0 Clinical Note:: 65-year-old white male with history of nephrolithiasis presents for bilateral ESWL for bilateral kidney stones. A left-sided ureteral stent was placed at time of recent ureteroscopy and stone extraction on the left side. Operative findings:: X-rays revealed a 10 mm stone in the left kidney and 3 5 mm stones in the right renal pelvis. Operative note:: Patient taken to the operating room after informed consent was obtained. Was placed on the operating table in the supine position and general anesthesia administered. Preoperative antibiotics and sequential compression devices placed. He was placed in the supine position and positioned so that F2 the lithotripter was focused onto the left kidney stone. Padded appropriately. After adequate positioning 3000 shockwaves delivered to the stone with good fragmentation on fluoroscopy. We then moved to the patient's right side and patient again positioned in the position so the F2 was focused onto the right-sided kidney stones which were all improved. 3000 shockwaves delivered to the stones at a maximum KV of 7.. Good fragmentation of stones. Patient tolerated procedure well no complications. Condition: stable Disposition: PACU Specimens:: None Complications:: None
--- NOTE | 2021-04-12 14:51 | SUR.PHASEI ---
1438- detailed report given to marline decker and marline baker at this time.
[2021-04-15 13:41] VITALS: BP 160/92; PULSE 76; TEMP 36.8
--- NOTE | 2021-04-15 13:41 | P.PN_ITS ---
[facility] Anesthesia Record Part II Discharge Time: 14:35 Destination: Surgical Day Care (OP Surgery) PACU nurse assessment reviewed?: Yes Patient Condition:: Good Anesthesia Complications:: None Swallowing reflex intact?: Yes Cyanosis?: No Blood Pressure: 160/92 Pulse Rate: 76 Temperature: 98.2 F Mental Status: Alert & Oriented Pain level:: 5 Nausea and/or vomitting:: None Intake, IV Amount: 0
== END 2021-04-12 15:10 | disposition home or self-care (01) ==
LOC: OR 09:43
PROVIDERS: PCP Family Medicine; Visit Provider Urology
PROC: (CPT 50590; principal; 2021-04-12 11:15)
DX: N20.0 Calculus of kidney (principal); E11.9 Type 2 diabetes mellitus without complications; I10 Essential (primary) hypertension; N28.9 Disorder of kidney and ureter, unspecified; Z85.01 Personal history of malignant neoplasm of esophagus; Z79.899 Other long term (current) drug therapy; Z88.0 Allergy status to penicillin
CPT/HCPCS: 50590; 74018; 82962; 96374; J2405

== ENCOUNTER → 2021-04-16 12:48 | Outpatient (POV) | payer OTHER, MEDICARE, SELFPAY | PROVIDERS: Visit Provider Dermatology | DX: Z00.00 Encounter for general adult medical examination without abnormal findings (principal) ==

== ENCOUNTER → 2021-04-19 14:46 | Outpatient (CLI) | payer OTHER, MEDICARE, SELFPAY ==
--- NOTE | 2021-04-19 14:50 | XR_ITS ---
PROCEDURE: XR KUB CLINICAL INDICATION: kidney stone COMPARISON: CR XR KUB from 04/12/2021 FINDINGS: Left ureteral stent remains in good position. There are numerous left renal calculi the largest at approximately 7 mm. Numerous right renal calculi are also noted the largest at 7 mm. IMPRESSION: No change left ureteral stent and numerous bilateral renal calculi Dictated by: Ricardo Awan MD 04/19/2021 15:29 Ricardo Awan MD in [place] 04/19/2021 15:29
== END ==
PROVIDERS: PCP Family Medicine; Visit Provider Urology
DX: N20.0 Calculus of kidney (principal)
CPT/HCPCS: 74018

== ENCOUNTER → 2021-06-18 15:15 | Outpatient (CLI) | payer OTHER, MEDICARE, SELFPAY ==
--- NOTE | 2021-06-18 15:18 | XR_ITS ---
PROCEDURE: XR KUB CLINICAL INDICATION: kidney stone COMPARISON: CR XR KUB from 04/19/2021 FINDINGS: Bilateral nephrolithiasis. Cluster of stones is noted over the mid aspect of the right and in the mid aspect of the left kidney more prominent on the right compared to the left overall not significantly changed. Surgical clips are present in the gastric region and right upper quadrant and right mid abdominal area. No obvious ureteral calculus IMPRESSION: No change bilateral nephrolithiasis. Dictated by: Ricardo Awan MD 06/18/2021 16:54 Ricardo Awan MD in [place] 06/18/2021 16:54
== END ==
PROVIDERS: PCP Family Medicine; Visit Provider Urology
DX: N20.0 Calculus of kidney (principal)
CPT/HCPCS: 74018

== ENCOUNTER → 2021-08-15 10:47 | Outpatient (CLI) | payer MEDICARE, SELFPAY ==
--- NOTE | 2021-08-15 10:53 | XR_ITS ---
FINAL REPORT CLINICAL HISTORY: kidney stone COMPARISON: June 18, 2021 FINDINGS: A single view of the abdomen was obtained. There is a nonobstructive bowel gas pattern. There are no abnormally dilated loops of small bowel. There is a moderate amount of retained stool. Postoperative changes are seen in the abdomen. There are several presumed bilateral renal stones measuring up to 5 mm on the right and 8 mm on the left. The stone burden has partially improved on the right. There are probable phleboliths in the left pelvis. IMPRESSION: Moderate amount of retained stool. Bilateral nephrolithiasis, partially improved on the right. Reviewed, Interpreted and Dictated by Carlos Hobbs III, MD Transcribed by Corona Hardin Authenticated by Carlos Hobbs III, MD on 08/15/2021 01:25:35 PM [facility]
== END ==
PROVIDERS: PCP Family Medicine; Visit Provider Urology
DX: N20.0 Calculus of kidney (principal)
CPT/HCPCS: 74018

== ENCOUNTER → 2021-08-22 06:50 | Outpatient (CLI) | payer MEDICARE, SELFPAY ==
--- NOTE | 2021-08-22 06:55 | CT_ITS ---
FINAL REPORT CLINICAL HISTORY: kidney stone, RIGHT FLANK PAIN FINDINGS: Technique: Axial images through the abdomen and pelvis were performed by computed tomography. This study was performed with techniques to keep radiation doses as low as reasonably achievable (ALARA). Individualized dose reduction techniques using automated exposure control or adjustment of mA and/or kV according to the patient's size were employed. Abdomen: There is mild bibasilar atelectasis or scar. There is a moderate hiatal hernia. The liver is normal in size and attenuation. The patient is status post cholecystectomy. Postoperative changes are seen in the upper abdomen. The spleen is unremarkable. The pancreas is normal. The adrenals are normal. The aorta is normal in caliber. There is a 10 mm nonobstructing right renal stone. Several other less than 3 mm right renal stones are identified. There are several left renal stones measuring up to 11 mm. There are 2 or 3 stones just proximal to the right UVJ measuring up to 5 mm. There are 3 stones near the left UVJ orifice, largest measures 5 mm. There is mild right hydronephrosis and hydroureter. Pelvis: The appendix is unremarkable. The urinary bladder is unremarkable. There is no free fluid or adenopathy. IMPRESSION: Mild right hydronephrosis and hydroureter secondary to obstructing stones just proximal to the right UVJ. Left UVJ stones. Bilateral nephrolithiasis. Reviewed, Interpreted and Dictated by Carlos Hobbs III, MD Transcribed by Ibis James Authenticated by Carlos Hobbs III, MD on 08/22/2021 08:11:36 AM [facility]
== END ==
PROVIDERS: PCP Family Medicine; Visit Provider Urology
DX: N20.0 Calculus of kidney (principal); Z11.52 Encounter for screening for COVID-19; Z01.818 Encounter for other preprocedural examination
CPT/HCPCS: 36415; 74176; 80048; 85007; 85014; 85018; 85048; 85049; C9803; U0003; U0005

== ENCOUNTER → 2021-08-22 14:17 | Outpatient (CLI) | payer MEDICARE, SELFPAY ==
[2021-08-22 14:25] LABS: MANUAL DIFFERENTIAL MANUAL DIFFERENTIAL (MANUAL DIFF)
[2021-08-22 14:55] LABS: Basophils % 0.5 % (0.1-2.0); Eosinophils # 0.2 K/mm3 (0.0-0.4); Hematocrit 44.9 % (42.0-52.0); Hemoglobin 14.7 g/dL (14.1-18.0); Mean Corpuscular HGB Conc 32.7 g/dL (31.8-35.4); Mean Corpuscular Hemoglobin 29.8 pg (27.0-31.2); Mean Corpuscular Volume 91.2 fl (80-94); Mean Platelet Volume 8.7 fl (7.4-10.4); Monocytes # 0.5 K/mm3 (0.1-1.0); Monocytes % 6.7 % (1.7-9.3); Neutrophils % 74.7 % (37.0-80.0); Platelet Count 260 K/mm3 (142-424); Red Blood Count 4.93 M/mm3 (4.60-6.20); Red Cell Distribution Width 14.8 % (11.5-17.5); White Blood Count 6.7 K/mm3 (4.8-10.8)
[2021-08-22 15:25] LABS: Anion Gap 11.9 mEq/L (5-15); Blood Urea Nitrogen 25 mg/dl (9-20); Calcium 9.3 mg/dl (8.4-10.2); Carbon Dioxide 29 mmol/L (22.0-30.0); Chloride 108 mmol/L (98-107); Estimated Glomerular Filt Rate 36 ml/min (>60); GFR (African American) 43 ML/MIN (>60); Glucose 91 mg/dl (74-100); Potassium 4.9 mmoL/L (3.5-5.1); Sodium 144 mmol/L (136-145)
[2021-08-22 18:25] LABS: Eosinophils % 2 % (0-3); Hypochromasia 1+; Lymphocytes % 16 % (10-50); Monocytes % 4 % (2-9); Neutrophils % 78 % (42-76); Platelet Estimate Normal; Tear Drop Cells 1+; Total Cells Counted 100
== END ==
PROVIDERS: Visit Provider Urology
DX: N20.0 Calculus of kidney (principal); Z01.812 Encounter for preprocedural laboratory examination; Z11.52 Encounter for screening for COVID-19
CPT/HCPCS: 36415; 80048; 85007; 85014; 85018; 85048; 85049; C9803; U0003; U0005

== ENCOUNTER 2021-08-23 10:52 | Day surgery (SDC) | payer MEDICARE, SELFPAY ==
[2021-08-23] VITALS (10 sets, daily range): BP systolic 145–180; BP diastolic 80–117; PULSE 60–86; RESP 13–18; TEMP 36.4–36.7; O2SAT 93–98; BMI 36.2
--- NOTE | 2021-08-23 12:12 | P.PN_ITS ---
[facility] Anesthesia Checklist - Patient Identification Patient Identification: Arm Band - Structural Data Admitted From: Home Planned Operative Procedure/s: Ureterosocopy Consent for Planned Operative Procedure(s) Verified: Yes - NPO Status Verified Time NPO: 00:00 - Additional verifications Anesthesia Reactions: No Hx Blood Transfusions: Yes Blood Transfusion Reaction: No - Airway Assessment C-Spine Mobility Assessed: Yes TMJ Mobility Assessed: Yes Dentition: Good Dentition - Neurological Assessment Level of Consciousness: Awake Hx Seizures: No Numbness or tingling in extremities: No - Anesthesia Plan Anesthesia Risk discussed: Yes Anesthesia Plan: Verified ASA Class: III Anesthesia Type: General [facility] History I have reviewed the patient's past medical history: Yes Medical History: Reports:: Cancer (esophageal), Diabetes Mellitus Type 2, Hypertension, Kidney Stones, Renal Disease, Renal Insufficiency Denies:: Diabetes Mellitus Type 1, Internal Pacemaker, MRSA, Seizures *Have you ever received a pneumonia vaccine?: Yes *Have you received a flu vaccine this season?: Yes Other Medical History: Reports: Cataracts, Chemotherapy, Hoarseness, Other. Denies: Blood Transfusion Reaction Anesthesia experience/problems:: None Laterality Cases: Bilateral: Cataract, Tonsillectomy Other Surgeries: Yes: No Previous Surgery, Cancer Surgery, Cholecystectomy, Colonoscopy, Hernia Repair, Ureter Stent. No: Pacemaker Amputation: No Fractures: Yes - *Social History Last grade of school completed: Advanced degree Smoking Status: Former smoker Tobacco Type: cigarettes Alcohol Intake: never Alcohol Intake Frequency:: a few times a month Substance Use Type: denies use *Occupational Status:: employed Housing: house Household Members: spouse *Travel in the last 8 weeks: Inside the [facility] Family Hx:: Cancer, Heart Attack
--- NOTE | 2021-08-23 13:03 | P.PN_ITS ---
[facility] Anesthesia Record Part I Intake, IV Amount: 600 Estimated blood loss (mL): 0 Urine output (mL): 0 Blood Pressure: 177/117 SaO2: 96 Pulse Rate: 86 Respiratory Rate: 14 Temperature: 98 F Patient is:: Drowsy, Oral/Nasal airway Stable to PACU at:: 13:02
--- NOTE | 2021-08-23 13:16 | XR_ITS ---
FINAL REPORT CLINICAL HISTORY: BILATERAL URETEROSCOPY fluoro time: 0:24 FINDINGS: FLUOROSCOPY <1 HR Fluoroscopic guidance was provided to the operating services. 2 spot films 4 obtained. Imaging was obtained during ureteroscopy. Twenty-four seconds of fluoroscopy time was utilized. IMPRESSION: 24 seconds of fluoroscopy time. Reviewed, Interpreted and Dictated by Otis Escalante MD Transcribed by Corona Hardin Authenticated by Otis Escalante MD on 08/26/2021 09:56:15 AM [facility]
[2021-08-23 13:33] LABS: POC Glucose,Bedside 93 (70-110)
--- NOTE | 2021-08-23 13:41 | SUR.PHASEI ---
1336 detail report provided to EMELIA Nuno. Pt left in stable condition.
--- NOTE | 2021-08-23 15:47 | HMH.OPNOTE ---
Date of procedure: 08/23/21 Pre-op Diagnosis:: Bilateral ureteral stones Post-op Diagnosis:: Spontaneous passage of stones Procedure performed:: Bilateral ureteroscopy and cystoscopy Surgeon:: Rene Bundy MD SENIOR INTEGRATION ARCHITECT:: Lamonte Sahni Anesthesia: LMA Estimated blood loss (mL): 0 Clinical Note:: 65-year-old white male with history of nephrolithiasis status post ESWL 3 months ago with some residual stone fragments that are trying to pass. CT scan 2 days ago showed bilateral ureteral calculi. He presents for the procedure today but has passed 8 to 9 stones since yesterday. KUB has failed to show the stones previously and are likely uric acid. He presents for urologic evaluation to make sure there are no further stones present. Operative findings:: No evidence of stones in the ureters. Operative note:: Patient taken to the operating room after informed consent was obtained. Placed on the operating table in the supine position and general anesthesia administered. Preoperative antibiotics and sequential compression devices were placed. He was then placed into the dorsal lithotomy position and prepped and draped in the standard surgical fashion. The 20 Jerson passed into the urethra and into the bladder without difficulty. The bladder was examined in a systematic fashion there is no evidence of stones, diverticula or trabeculation present. The ureteral orifices in their normal anatomic position. On the right side there was a little bit of trauma at the ureteral orifice consistent with recently passed stone. A guidewire was passed into the left ureteral orifice and under fluoroscopy no evidence of resistance or stones were noted. The guidewire then passed into the right ureteral orifice and again no evidence of resistance or calcifications were noted. The cystoscope then removed and the semirigid ureteroscope was passed into each ureteral orifice and again no evidence of stones were noted. This was done to verify that there were no radio lucent stones present. The ureteroscope then removed and the procedure terminated. Urojet placed into the urethra patient tolerated well. Condition: stable Disposition: PACU Specimens:: None Complications:: None
--- NOTE | 2021-08-27 07:17 | P.PN_ITS ---
[facility] Anesthesia Record Part II Discharge Time: 13:32 Destination: Surgical Day Care (OP Surgery) PACU nurse assessment reviewed?: Yes Patient Condition:: Good Anesthesia Complications:: None Swallowing reflex intact?: Yes Cyanosis?: No Blood Pressure: 151/85 Pulse Rate: 65 Temperature: 97.8 F Mental Status: Alert & Oriented Pain level:: 0 Nausea and/or vomitting:: None Intake, IV Amount: 0
[2021-08-27 07:18] VITALS: BP 151/85; PULSE 65; TEMP 36.6
[2022-04-03 10:57] LABS: POC Glucose,Bedside 121 (70-110)
== END 2021-08-23 14:20 | disposition home or self-care (01) ==
LOC: OR 10:54
PROVIDERS: PCP Family Medicine; Visit Provider Urology
PROC: (CPT 52352; principal; 2021-08-23 12:30)
DX: N20.1 Calculus of ureter (principal); E11.9 Type 2 diabetes mellitus without complications; I10 Essential (primary) hypertension; N28.9 Disorder of kidney and ureter, unspecified; Z85.01 Personal history of malignant neoplasm of esophagus; Z87.891 Personal history of nicotine dependence; Z80.9 Family history of malignant neoplasm, unspecified; Z82.3 Family history of stroke; Z88.0 Allergy status to penicillin
CPT/HCPCS: 52351; 74018; 82370; 82962; 96374

== ENCOUNTER → 2021-08-23 15:35 | Outpatient (CLI) | payer MEDICARE, SELFPAY ==
[2021-09-23 12:11] LABS: Specimen Type NOT PROVIDED
[2021-09-23 12:12] LABS: Size 7x5
[2021-09-23 12:20] LABS: Calcium phosphate 23.1
[2021-09-23 12:21] LABS: Sodium acid urate 0.1; Uric acid dihydrate 2.4
[2021-09-23 13:01] LABS: Ca oxalate dihydrate 42.1
== END ==
PROVIDERS: Visit Provider Urology
DX: N20.0 Calculus of kidney (principal)
CPT/HCPCS: 82370

== ENCOUNTER → 2022-01-07 10:56 | Outpatient (POV) | payer MEDICARE, SELFPAY | PROVIDERS: Visit Provider Dermatology | DX: Z00.00 Encounter for general adult medical examination without abnormal findings (principal) ==

== ENCOUNTER → 2022-01-17 14:33 | Outpatient (CLI) | payer MEDICARE, SELFPAY ==
--- NOTE | 2022-01-17 14:38 | XR_ITS ---
FINAL REPORT CLINICAL HISTORY: kidney stone FINDINGS: ABDOMEN SINGLE VIEW There is a nonspecific, nonobstructive bowel gas pattern. No bowel dilation is identified. Surgical clips are seen in left upper quadrant. Renal stones are seen in the bilateral kidneys measuring up to 6 mm on the right and 8 mm on the left. IMPRESSION: Bilateral renal stones. Reviewed, Interpreted and Dictated by Otis Escalante MD Transcribed by Ibis James Authenticated and [facility]
== END ==
PROVIDERS: PCP Nurse Practitioner Family; Visit Provider Urology
DX: N20.0 Calculus of kidney (principal)
CPT/HCPCS: 74018

== ENCOUNTER → 2022-02-22 09:30 | Outpatient (CLI) | payer MEDICARE, SELFPAY | PROVIDERS: PCP Nurse Practitioner Family; Visit Provider Ophthalmology | DX: U07.1 COVID-19 (principal) | CPT/HCPCS: C9803; U0003; U0005 ==

== ENCOUNTER 2022-03-28 09:07 | Emergency (ER) | payer MEDICARE, OTHER, SELFPAY ==
[2022-03-28 09:08] VITALS: BP 155/89; PULSE 57; RESP 18; TEMP 36.4; O2SAT 97; BMI 36.9
[2022-03-28 09:45] VITALS: PULSE 61; O2SAT 98
--- NOTE | 2022-03-28 09:50 | HMH.EDEPIS ---
Discharge Plan Disposition Patient Disposition: Home, Self-Care Condition: Good Chief Complaint: Epistaxis Prescriptions Prescriptions: No Action famotidine 20 MG tablet 20 mg PO BIDP PRN (Reason: Heartburn) lisinopril 40 MG tablet 20 mg PO DAILY allopurinol 300 MG tablet 300 mg PO DAILY hydrocodone-acetaminophen 1 TAB tablet 1 tab PO Q6HP PRN (Reason: Moderate To Severe Pain) Qty: 10 0RF diclofenac sodium 75 MG tablet,delayed release (DR/EC) 75 mg PO BID PRN (Reason: arthritis) omeprazole 20 MG tablet,delayed release (DR/EC) 20 mg PO DAILY PRN (Reason: Acid Reflux) Referrals Follow up/Referrals: Vivi Connell APRN [Primary Care Provider] - See instructions Clinical Impressions Clinical Impression: Epistaxis Instructions Patient Instructions: DI for Nosebleed Discharge ED Provider: Myke Costa Epistaxis HPI General Chief complaint: Epistaxis Stated complaint: Nose bleed Time Seen by Provider: 03/28/22 09:50 Mode of Arrival: Ambulatory Source of Information: Patient Limitations: No Limitations Description of Symptoms (Recalled from ER Triage Doc. by RN): c/o nose bleed this morning which has not resolved, denies taking any blood thinners History of Present Illness MD complaint: epistaxis Location: left nostril Onset (ago): hour(s) (1) Duration: now resolved Context: other (no history of trauma or nose bleeds) Treatment prior to arrival: nose pinching Related Data Home Medications Medication Instructions Recorded Confirmed famotidine 20 mg tablet 20 mg PO BIDP PRN Heartburn 03/24/21 02/21/22 lisinopril 40 mg tablet 20 mg PO DAILY High blood pressure 03/24/21 02/21/22 allopurinol 300 mg tablet 300 mg PO DAILY gout 04/11/21 02/21/22 diclofenac sodium 75 mg 75 mg PO BID PRN arthritis 02/21/22 02/21/22 tablet,delayed release omeprazole 20 mg tablet,delayed 20 mg PO DAILY PRN Acid Reflux 02/21/22 02/21/22 release Previous Rx's Medication Instructions Recorded hydrocodone 5 mg-acetaminophen 325 1 tab PO Q6HP PRN Moderate To 08/23/21 mg tablet Severe Pain #10 tabs Allergies Allergy/AdvReac Type Severity Reaction Status Date / Time Penicillins [PENICILLINS] Allergy Unknown rash Verified 02/21/22 09:07 oysters AdvReac Mild Vomiting Uncoded 02/21/22 09:07 [facility] Social History Smoking Status: Never smoker alcohol intake: never substance use type: denies use current occupational status: employed Travel in the last 8 weeks: None household members: spouse housing: house 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 current occupational exposures/hazards: No caffeine: Yes ROS Obtained: Yes All systems reviewed & no additional complaints except as documented Constitutional Constitutional: Denies fever(s) and Denies headache(s) ENT Ears, Nose, Mouth, and Throat: Reports epistaxis and Denies headache(s) Cardiovascular Cardiovascular: Denies chest pain and Denies dyspnea Respiratory Respiratory: Denies dyspnea Gastrointestinal Gastrointestingal: Denies vomiting Musculoskeletal Musculoskeletal: Denies joint swelling Neurologic Neurologic: Denies headache(s) Physical Exam General General appearance: alert and in no apparent distress ENT ENT exam: Present other (Patient has evidence of a small scab in the left anterior nare that is likely the area of bleeding. There is no active bleeding at this time. No evidence of posterior bleeding. Septum intact. Ears are clear, throat is clear.) Respiratory Respiratory exam: Present normal lung sounds bilaterally; Absent respiratory distress Cardiovascular Cardiovascular exam: Present regular rate and normal rhythm Abdominal Exam Abdominal exam: Present soft; Absent distention, tenderness or mass Extremities Exam Extremities exam: Present normal inspection and full ROM Neurological Exam Neurological exam: Present alert, oriented X3
[2022-03-28 10:12] VITALS: BP 150/83; PULSE 60; RESP 16; TEMP 36.8; O2SAT 95
== END 2022-03-28 10:14 | disposition home or self-care (01) ==
PROVIDERS: Emergency Provider Emergency Medicine; PCP Nurse Practitioner Family
DX: R04.0 Epistaxis (principal)
CPT/HCPCS: 99282

== ENCOUNTER 2022-04-01 09:08 | Day surgery (SDC) | payer MEDICARE, OTHER, SELFPAY ==
[2022-02-21 08:58] VITALS: BMI 35.6
[2022-03-31 08:43] VITALS: BMI 35.9
[2022-04-01 09:29] VITALS: BP 145/82; PULSE 72; RESP 20; TEMP 36.6; O2SAT 96
[2022-04-01 10:01] LABS: POC Glucose,Bedside 147 (70-110)
[2022-04-01 10:25] VITALS: BP 150/83; PULSE 67; RESP 18; TEMP 36.6; O2SAT 97
== END 2022-04-01 10:26 | disposition home or self-care (01) ==
PROVIDERS: PCP Nurse Practitioner Family; Visit Provider Ophthalmology
PROC: (CPT 66821; principal; 2022-04-01 09:00)
DX: H26.493 Other secondary cataract, bilateral (principal); Z79.899 Other long term (current) drug therapy; Z48.810 Encounter for surgical aftercare following surgery on the sense organs
CPT/HCPCS: 66821; 82962

== ENCOUNTER → 2022-11-25 10:02 | Outpatient (POV) | payer MEDICARE, OTHER, SELFPAY | PROVIDERS: Visit Provider Dermatology | DX: Z00.00 Encounter for general adult medical examination without abnormal findings (principal) ==

== ENCOUNTER 2023-08-25 13:17 | Outpatient (CLI) | payer MEDICARE, OTHER, SELFPAY ==
--- NOTE | 2023-08-25 13:23 | XR_ITS ---
FINAL REPORT CLINICAL HISTORY: Foot Pain FINDINGS: Left foot Three views were obtained. There is no acute fracture or dislocation. The joint spaces appear normal. Note is made of Calderon deformity. Moderate No soft tissue abnormality is identified. IMPRESSION: No acute process. Reviewed, Interpreted and Dictated by Otis Escalante MD Transcribed by Ibis James Authenticated and . [facility]
--- NOTE | 2023-08-25 13:23 | XR_ITS ---
FINAL REPORT CLINICAL HISTORY: Foot Pain FINDINGS: Right foot Three views were obtained. There is no acute fracture or dislocation. The joint spaces appear normal. There is a tiny Calderon deformity. There is a small osteophyte along the dorsal aspect of the talus. No soft tissue abnormality is identified. IMPRESSION: No acute process. Reviewed, Interpreted and Dictated by Otis Escalante MD Transcribed by Ibis James Authenticated and [facility]
== END 2023-08-25 23:59 ==
PROVIDERS: PCP Family Medicine; Visit Provider Podiatrist
DX: M79.671 Pain in right foot (principal); M79.672 Pain in left foot
CPT/HCPCS: 73630

== ENCOUNTER 2023-12-17 13:34 | Outpatient (CLI) | payer MEDICARE, OTHER, SELFPAY ==
--- NOTE | 2023-12-17 13:38 | XR_ITS ---
FINAL REPORT CLINICAL HISTORY: right hip pain FINDINGS: Right hip Three views were obtained. There is no acute fracture or dislocation. There are moderate degenerative changes. No soft tissue abnormality is identified. IMPRESSION: Moderate degenerative changes. Reviewed, Interpreted and Dictated by Carlos Hobbs III, MD Transcribed by Ibis James Authenticated and [facility]
--- NOTE | 2023-12-17 13:38 | XR_ITS ---
FINAL REPORT CLINICAL HISTORY: Left hip pain FINDINGS: Left hip Three views were obtained. There is no acute fracture or dislocation. There are moderate degenerative changes. No soft tissue abnormality is identified. IMPRESSION: Moderate degenerative changes. Reviewed, Interpreted and Dictated by Carlos Hobbs III, MD Transcribed by Ibis James Authenticated and [facility]
== END 2023-12-17 23:59 | disposition home or self-care (01) ==
LOC: RAD 13:35
PROVIDERS: PCP Family Medicine; Visit Provider Physician Assistant Surgical
DX: M25.551 Pain in right hip (principal); M25.552 Pain in left hip
CPT/HCPCS: 73502

== ENCOUNTER 2024-10-18 14:57 | Outpatient (CLI) | payer MEDICARE, OTHER, SELFPAY ==
--- OUTSIDE RECORDS SUMMARY | 2024-10-18 15:00 | XMS_ITS ---
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 This section includes the names of all active insurance providers for the patient. Insurance Provider Type of Coverage Plan Name Start of Policy Coverage End of Policy Coverage Group Number Member ID Insurance Provider's Telephone Number Policy Condon's Name Patient's Relationship to Policy Condon MEDICARE (WNR) MEDICARE (M) PART B November 03, 2013 PART B [id number] [phone] USMANDESIRAE PATIENT MEDICARE (WNR) MEDICARE (M) PART A November 03, 2013 PART A [id number] DESIRAE MARY PATIENT Selected Encounter This section includes the information on record at [place] for the Encounter. Date/Time Encounter Type Encounter Description Reason Provider Source Jun 15, 2024 01:00 PM MEDICAL NUTRITION INDIV IN [facility]! PROG - IND ICD-10-CM E66.09 Other obesity due to excess calories ONIEL PETE IHGreta Encounter Template Text not used by [facility] Assessments - Encounter Diagnoses This section includes the primary and secondary diagnoses documented for the Encounter. Date/Time Primary/Secondary Diagnosis Diagnosis Name Provider Source Jun 15, 2024 03:11 PM PRIMARY Other obesity due to excess calories ONIEL PETE [facility] Jun 15, 2024 03:11 PM SECONDARY Chronic kidney disease, stage 3 unspecified ONIEL PETE [facility] Jun 15, 2024 03:11 PM SECONDARY Dietary counseling and surveillance ONIEL PETE [facility] Jun 15, 2024 03:11 PM SECONDARY Type 2 diabetes mellitus w diabetic chronic kidney disease ONIEL PETE [facility] Plan of Treatment: Future Appointments (+ 6 months) and Future Tests (+/- 45 days) The Plan of Treatment section includes future care activities for the patient from [facility] [place] [facility] This section includes future appointments and future orders which are active, pending or scheduled. Future Appointments This section includes appointments that were scheduled to occur 6 months from the date of the Encounter, up to a maximum of 20 appointments. The data comes from all [facility] facilities. Appointment Date/Time Appointment Type Appointme nt Facility Name Aug 10, 2024 03:30 PM [facility]ORY - [facility] Lab Results: +/- 30 days of the encounter This section includes the Chemistry and Hematology Lab Results on record with [place] for the patient. Radiology Reports and Pathology Reports are provided separately, in subsequent sections. Lab Results This section contains the Chemistry/Hematology Results that were resulted 30 days before or 30 daysafter the date of the Encounter. Date/Time Source Result Type Result - Unit Interpretation Reference Range Specimen Type Comment Jul 04, 2024 02:49 PM [facility] MICROALBUMIN/CREAT RATIO URINE Specimen Type: URINE No comment entered. Ordering Provider: PATTIE MARTE Report Released Date/Time: Jul 01, 2024 04:06 PM Reporting Lab: [address] [id number] Performing Lab: [address] [address] CREATININE 141.0 mg/dL MICROALBUMIN QUANT 10.6 mg/L 0.0-30.0 .MICROALBUMIN/CREA RATIO 7.5 ug/mg{creat} Jul 04, 2024 02:21 PM [facility] PANEL 1 PLASMA Specimen Type: PLASM A Comment: Estimated Glomerular Filtration Rate (eGFR) calculated using the 2020 Chronic Kidney Disease-Epidemiology (CKD-EPI) Collaboration creatinine equation; units of measure are mL/min/1.73 m2. Results are only valid for adults (>=18 years) whose serum creatinine is in a steady state. eGFR calculations are not valid for patients with acute kidney injury and for patients on dialysis. Creatinine-based estimates of kidney function may also be inaccurate in patients with reduced creatinine generation due to decreased muscle mass (e.g., malnutrition, severe hypoalbuminemia, sarcopenia, chronic neuromuscular disease, amputations, severe heart failure or liver disease) and in patients with increased creatinine generation due to increased muscle mass (e.g., muscle builders, anabolic steroids) or increased dietary intake. As drug clearance is proportional to total GFR and not GFR indexed to body surface area (BSA), in individuals with a BSA substantially different than 1.73 m2, drug dosing should be based on the reported eGFR value de-indexed from BSA by multiplying by the individual's BSA and dividing by 1.73. CKD is diagnosed based on abnormalities of kidney structure or function, present for >3 months, with implications for health and disease. CKD is classified and staged based on cause, eGFR and albuminuria (quantified as urine albumin to creatinine ratio). An eGFR >60 mL/min/1.73 m2 in the absence of increased urine albumin excretion or structural abnormalities does not represent CKD. eGFR CKD Interpretation (mL/min/1.73 m2) stage >=90 G1 Normal 60-89 G2 Mild decrease 45-59 G3A Mild to moderate decrease 30-44 G3B Moderate to severe decrease 15-29 G4 Severe decrease <15 G5 Kidney failure Ordering Provider: PATTIE MARTE Report Released Date/Time: Jul 01, 2024 04:07 PM Reporting Lab: [address] [id number] Performing Lab: [address] [id number] CREATININE 1.28 mg/dL H 0.72-1.25 UREA NITROGEN 17 mg/dL 9-25 GLUCOSE 143 mg/dL H 74-100 SODIUM 142 mmol/L 136-145 POTASSIUM 4.1 mmol/L 3.5-5.1 CHLORIDE 108 mmol/L H 98-107 CO2 28 mmol/L 22-29 CALCIUM 9.8 mg/dL 8.4-10.2 ANION GAP 6 meq/L 3-19 eGFR (CKD-EPI) 60 Vital Signs: All taken on the encounter date This section contains inpatient and outpatient Vital Signs collected on the date of the Encounter. Date/Time Temperature Pulse Blood Pressure Respiratory Rate SP02 Pain Height Weight Body Mass Index Source Jun 15, 2024 01:39 PM [address] [place] [facility] Social History: Smoking Status (Most current) and Tobacco Use (All prior to encounter date) This section includes the most current, and the historical, smoking and tobacco- related health factors from the [place] facility where the Encounter took place. Current Smoking Status This section includes the most current smoking, or tobacco-related health factor, from the [place] facility where the Encounter took place. Date/Time Current Smoking Status Comment Saima ity Apr 13, 2024 11:30 AM [place]-TOBACCO FORMER USER [facility] Tobacco Use History This section includes a history of the smoking, or tobacco-related health factors, that were collected on or before the date of the Encounter. The data comes from the [place] facility where the Encounter took place. Date/Time Smoking Status/Tobacco Use Comment F acility Apr 13, 2024 11:30 AM VA-TOBACCO QUIT 15 YRS OR MORE [facility] May 18, 2023 11:30 AM VA-TOBACCO FORMER USER [facility] May 18, 2023 11:30 AM VA-TOBACCO QUIT 15 YRS OR MORE [facility] Jul 18, 2021 02:30 PM VA-TOBACCO FORMER USER [facility] Jul 18, 2021 02:30 PM VA-TOBACCO QUIT 15 YRS OR MORE [facility] Sep 09, 2013 12:30 PM V9 LIFETIME NON-USER OF TOBACCO [facility] Encounter Notes: All associated encounter notes This section contains the clinical notes associated to the Encounter. Date/Time Encounter Note(s) Provider Source Jun 15, 2024 06:59 PM NUTRITION CONSULT: LOCAL TITLE: NUTRITION OUTPATIENT CONSULT RESPONSE STANDARD TITLE: NUTRITION CONSULT DATE OF NOTE: JUN 15, 2024@18:59 ENTRY DATE: JUN 15, 2024@18:59:23 AUTHOR: ONIEL PETE EXP COSIGNER: URGENCY: STATUS: COMPLETED Date of Encounter: Jun Time Spent with : 65 min Referred for: Weight Management Provisional Diagnosis: Obesity, unspecified(ICD-10-CM E66.9) Nutrition Assessment: 68 yoM with pertinent PMH of T2DM, right knee pain, HLD, CKD3, hypercalcemia, ALLISON, h/o malignant neoplasm of esophagus (pt reports s/p chemoradition & esophagectomy), HTN, GERD, gout ANTHROPOMETRIC MEASUREMENTS: Ht: 73 in [185.4 cm] (04/13/2024 11:41) Wt: 263 lb [119.29 kg] (06/15/2024 13:39) BODY MASS INDEX - 34.8 BMI Classification: Obesity, Grade 1 (BMI 30 - 34.9) Weight Evaluation: *06/15/24: Pt reports consistently 254-258 lbs; had been unintentionally gaining wt in past few years Weight History Measurement DT WEIGHT LB(KG)[BMI] 06/15/2024 13:39 263(119.29)[35*] 04/13/2024 11:41 264.4(119.93)[35*] Nutrition Focused Physical Findings: Subcutaneous Fat/Muscle Mass Loss: None visualized - pt reports likely diminished lean muscle mass d/t inactivity Malnutrition Screening: [place] does not currently meet the criteria for malnutrition. Labs Reviewed HgbA1c: Collection DT Spec GLYCO 04/13/2024 12:59 BLOOD 6.7 H 05/18/2023 12:12 BLOOD 6.7 H Vitamin D: Collection DT Spec VITAMIN 04/13/2024 12:59 SERUM 52.9 H 05/18/2023 12:12 SERUM 36.7 Medication List: Reviewed *06/15/24: Noted glucose test strips/lancets, PPI OTC Supplements or Herbals: *06/15/24: Per pt - Vit D3 3000 inter units/day, MCT oil, Men's MVI, ACV, fish oil 1000mg, pre & probiotic, fiber Physical Activity: *06/15/24: Working w/ PT, though has not been doing recommended activities at home. He has space in gym he plans to utilize for activity FOOD/NUTRITION-RELATED HISTORY: -Breakfast: decaf coffee w/ stevia and sugar-free sweeetener - stevia/erythritol -Snacks: raisins, and every type of nut - for plant-based protein. Makes trailmix - almonds, peanuts, raisins, macadamia, walnuts -Fluid/beverage intake: Excess fluid intake causes reflux and diarrhea -Other: Lean meats and fish only. Typically 2 meals/day. If he likes a food, he finds it very difficult to stop eating. Nutrition Problems: Obesity -Etiology: Energy imbalance; c/b chronic pain that limits activity; though calorie intake per report appears would result in calorie deficit -Signs/Symptoms: Wt 263, BMI 34.8; c/b CK3, fatty liver (per pt report), T2DM, HLD, HTN, ALLISON NUTRITION INTERVENTION Nutrition Prescription: Generally healthy diet, DASH-type diet for HTN/CKD3, plant-protein focused (per pt), calorie deficit for wt loss Nutrition Education/Counseling: Desirae Mary presents for weight management per consult. [place]'s health goals are to manage chronic health conditions, particularly CKD and fatty liver (per pt report, not in EMR). Pt also wants to lose wt, no terminal manager goal set this date. This visit primarily focused on building rapport with pt, and reviewing patients PMH, as expressed by . Pt reports PMH of esophageal cancer, s/p chemoration and esophagectomy; now cancer free. Though since esophagectomy, his appetite and intake has diminish d/t dimished taste sensation; though his salt intake has increased to compensate for diminished appetitel; pt reports personal goal to reduce to manage CKD. Also, since surgery he reports chronic diarrhea. He also reports CCY ~22 years ago, with alterations in BM since. He also had diarhhea w/ metformin, and occasionally has hypoglycemia. Pt working with PT, he wants to increase muscle mass and improve physical conditioning; though chronic pain and motivation are barriers for him. He states not doing recommended exercises at home. inter units, discussed decreasing to 2000 inter units. Also takes fish oil, MCT (RD discussed d/c due to s/p CCY and pt reported diarrhea). And ACV for managing/preventing chronic kidney stones. RD and set goals this date, primarily with activity. verbalized understanding of all education provided and is in agreement with plan of care. Patient was provided with RD/nutrition clinic contact information in case any nutrition related questions or concerns arise. Printed material provided: Nutrition Visit Summary NUTRITION MONITORING/GOALS: Enter NEW SMART Goals: -Goal 1: Physical Therapy activities - pt wants to Just Do It ; has space in garage/man cave -Goal 2: Pt to make a daily/weekly acitivty plan (ex. PT activities, go to gym with Velie, find enjoyable and realistic home workouts on YouTube) -Goal 3: Decrease OTC vit D3 to 2000 inter units; discontinue OTC MCT oil; take fish oil w/ food/fiber -Goal 4: Increase beans for plant-proteins and soluble fiber for diarrhea Monitor A1c, Lipids, BP, Weight Trends FOLLOW-UP: 08/31/27 @ 13:00 via JULIO HARMEET/KOJO HILTON /debra/ Oniel Pete MS, RD, LD Registered Dietitian Signed: 06/15/2024 19:25 ON[facility]EL PETE [facility]
--- OUTSIDE RECORDS SUMMARY | 2024-10-18 15:00 | XMS_ITS | Encounter Summary ---
Author Name [facility] Address [address] [place] [address] Care Team Providers Care Supervisor Of Research Name Role Phone JOSE RAUSCH Primary Care Provider Unavailabl e Insurance Providers: [...] Policy [place] MEDICARE (WNR) MEDICARE (M) PART A November 03, 2013 PART A [id number] USMANDESIRAE PATIENT MEDICARE (WNR) MEDICARE (M) PART B November 03, 2013 PART B [id number] DESIRAE MARY PATIENT Selected Encounter This section includes the information on record at [place] for the Encounter. Date/Time Encounter Type Encounter Description Reason Provider Source Apr 13, 2024 11:30 AM OFFICE O/P EST HI 40 MIN PRIMARY CARE/MEDICINE ICD-10-CM E11.8 Type 2 diabetes mellitus with unspecified complications KATT GOTTI Encounter Template Text not used by [place] Assessments - Encounter Diagnoses This section includes the primary and secondary diagnoses documented for the Encounter. Date/Time Primary/Secondary Diagnosis Diagnosis Name Provider Source Apr 13, 2024 11:55 AM PRIMARY Type 2 diabetes mellitus with unspecified complications RAISARaymundoKATT ROJAS [facility] Apr 13, 2024 11:55 AM SECONDARY Asymptomatic varicose veins of bilateral lower extremities RAISARaymundoKATT ROJAS [facility] Apr 13, 2024 11:55 AM SECONDARY Chronic kidney disease, stage 3 unspecified KATT GOTTI [facility] Apr 13, 2024 11:55 AM SECONDARY Encounter for immunization HERMAN KWAN [facility] Apr 13, 2024 11:55 AM SECONDARY Gastro-esophageal reflux disease without esophagitis SCOTKATT ROJAS [facility] Apr 13, 2024 11:55 AM SECONDARY Gout, unspecified RAISARaymundoKATT ROJAS [facility] Apr 13, 2024 11:55 AM SECONDARY Localized swelling, mass and lump, right upper limb ANA MARÍAKATT [facility] Apr 13, 2024 11:55 AM SECONDARY Obstructive sleep apnea (adult) (pediatric) RAISARaymundoKATT ROJAS [facility] Apr 13, 2024 11:55 AM SECONDARY Other obesity due to excess calories SCOTKATT ROJAS [facility] Apr 13, 2024 11:55 AM SECONDARY Pain in right knee SCOTKATT ROJAS [facility] Apr 13, 2024 11:55 AM SECONDARY Type 2 diabetes mellitus w diabetic chronic kidney disease ANA MARÍAKATT [facility] Plan of Treatment: Future Appointments (+ 6 months) and Future Tests (+/- 45 days) The Plan of Treatment section includes future care activities for the patient from [facility] This section includes future appointments and future orders which are active, pending or scheduled. Future Appointments This section includes appointments that were scheduled to occur 6 months from the date of the Encounter, up to a maximum of 20 appointments. The data comes from all [facility] Appointment Date/Time Appointment Type Appointme nt Facility Name May 18, 2024 11:30 AM AMBULATORY - REHAB MEDICIN Greta [facility] May 31, 2024 02:30 PM AMBULATORY - REHAB MEDICIN E [facility] Jun 15, 2024 01:00 PM AMBULATORY - NONE [facility] Aug 10, 2024 03:30 PM [facility] Active, Pending, and Scheduled Orders This section includes a listing of several types of active, pending, and scheduled orders, including clinic medications orders, diagnostic test orders, procedure orders and consult orders; where the start date of the order is 45 days before the date of the Encounter or 45 days after the date of theEncounter. The data comes from all [place] treatment facilities. Test Date/Time Test Type Test Details Facility Name Apr 13, 2024 12:00 AM Laboratory - Chemi stry Order OCCULT BLOOD FIT X1 SCREEN STOOL FECES SP ONCE [facility] Apr 13, 2024 12:00 AM Laboratory - Chemi stry Order HCV [id number] SP ONCE [facility] Lab Results: +/- 30 days of the encounter This section includes the Chemistry and Hematology Lab Results on record with [facility] for the patient. Radiology Reports and Pathology Reports are provided separately, in subsequent sections. Lab Results This section contains the Chemistry/Hematology Results that were resulted 30 days before or 30 daysafter the date of the Encounter. Date/Time Source Result Type Result - Unit Interpretation Reference Range Specimen Type Comment Apr 13, 2024 12:59 PM [facility] LIPID PROFILE PLASMA Specimen Type: PLASMA Comment: Estimated Glomerular Filtration Rate (eGFR) calculated using the 2020 Chronic Kidney Disease-Epidemio logy (CKD-EPI) Collaboration creatinine equation; units of measure [...] or structural abnormalities does not represent CKD. ====== eGFR CKD Interpretation (mL/min/1.73 m2) stage >=90 G1 Normal 60-89 G2 Mild decrease 45-59 G3A Mild to moderate decrease 30-44 G3B Moderate to severe decrease 15-29 G4 Severe decrease <15 G5 Kidney failure Vitamin B12 test may not yield results when protein level of sample is too elevated. Ordering Provider: JOSE RAUSCH Report Released Date/Time: Apr 12, 2024 01:05 PM Reporting Lab: [address] [address] Performing Lab: [address] [address] CHOLESTEROL 195 mg/dL 0-199 TRIGLYCERIDE 84 mg/dL 0-149 HDL CHOLESTEROL 65 mg/dL 40-69 DIRECT LDL CHOL. 129 mg/dL H 0-100 Apr 13, 2024 12:59 PM [facility] GLYCOHEMOGLOBIN BLOOD Specimen Type: BLOOD Comment: [place] guidelines for A1c interpretation: Glycemic control targets are based on Shared Decision Making between clinicians and patients. Criteria used to establish an A1c target recommendation can be found at https://www.ky.gov/qualityandpatientsafety/ and include the use of result accuracy and precision(CV) of the A1c tests clinicians utilize at their own sites of practice. Values obtained from A1C measurements can vary. For typical A1C assays, a reported value of 7.0 could actually be between 6.72 and 7.28 if measured by a reference method. A reported value of 9.0 could actually be between 8.73 and 9.27. Ref: https://ngsp.org/CAPdata.asp. The in-house [employer] D-100 analyzer has a historical CV <= 2%. Contact the laboratory for further performance characteristics of this assay. Ordering Provider: JOSE RAUSCH Report Released Date/Time: Apr 12, 2024 01:05 PM Reporting Lab: [address] [address] Performing Lab: [address] [address] GLYCOHEMOGLOBIN 6.7 H 4.4-6.4 Apr 13, 2024 12:59 PM [facility] FERRITIN PLASMA Specimen Type: PLASM A Comment: Estimated [...] decrease <15 G5 Kidney failure Ordering Provider: JOSE RAUSCH Report Released Date/Time: Apr 12, 2024 01:05 PM Reporting Lab: [address] [address] Performing Lab: [address] [address] FERRITIN 89.0 ng/mL 21.8-274.7 Apr 13, 2024 12:59 PM [facility] URIC ACID PLASMA Specimen Type: PLASM A Comment: Estimated [...] decrease <15 G5 Kidney failure Ordering Provider: JOSE RAUSCH Report Released Date/Time: Apr 12, 2024 01:05 PM Reporting Lab: [address] [address] Performing Lab: [address] [address] URIC ACID 6.0 mg/dL 3.5-7.2 Apr 13, 2024 12:59 PM [facility] B12 VITAMIN PLASMA Specimen Type: PLASM A Comment: Estimated [...] G4 Severe decrease <15 G5 Kidney failure Vitamin B12 test may not yield results when protein level of sample is too elevated. Ordering Provider: JOSE RAUSCH Report Released Date/Time: Apr 12, 2024 01:05 PM Reporting Lab: [address] [address] Performing Lab: [address] [address] B12 VITAMIN 364 pg/mL 213-816 Apr 13, 2024 12:59 PM [facility] 25-OH VITAMIN D SERUM Specime n Type: SERUM Comment: The National Institutes of Health (NIH) recommendations state: <12 ng/mL - Deficient 20 - 50 ng/mL - Optimal Levels - adequate for most people. >50 ng/mL - Increased risk of hypercalciuria/other health problems - clinical correlation is required. These reference ranges represent clinical decision values rather than population-based reference values. Ordering Provider: JOSE RAUSCH Report Released Date/Time: Apr 12, 2024 01:05 PM Reporting Lab: [address] [address] Performing Lab: [address] [address] 25-OH VITAMIN D 52.9 ng/mL H 20.0-50.0 Apr 13, 2024 12:59 PM [facility] PANEL 5 PLASMA Specimen Type: PLASM A Comment: Estimated [...] G4 Severe decrease <15 G5 Kidney failure Vitamin B12 test may not yield results when protein level of sample is too elevated. Ordering Provider: JOSE RAUSCH Report Released Date/Time: Apr 12, 2024 01:05 PM Reporting Lab: [address] [address] Performing Lab: [address] [address] CREATININE 1.43 mg/dL H 0.72-1.25 UREA NITROGEN 23 mg/dL 9-25 GLUCOSE 118 mg/dL H 74-100 SODIUM 142 mmol/L 136-145 POTASSIUM 4.4 mmol/L 3.5-5.1 CHLORIDE 110 mmol/L H 98-107 CO2 26 mmol/L 22-29 CALCIUM 10.1 mg/dL 8.4-10.2 TOTAL PROTEIN 7.2 g/dL 6.4-8.3 ALBUMIN 4.2 g/dL 3.5-5.2 TOTAL BILIRUBIN 0.6 mg/dL 0.2-1.2 AST 19 U/L 5-34 ALT 19 U/L 0-55 ANION GAP 6 meq/L 3-19 ALK PHOS 79 U/L 40-150 eGFR (CKD-EPI) 53 Apr 13, 2024 12:59 PM [facility] PLASMA Specimen Type: PLASM A Comment: Estimated [...] decrease <15 G5 Kidney failure Ordering Provider: JOSE RAUSCH Report Released Date/Time: Apr 12, 2024 01:05 PM Reporting Lab: [address] [address] Performing Lab: [address] [address] TSH 1.1815 m[IU]/mL 0.3500-4.9400 Vital Signs: All taken on the encounter date This section contains inpatient and outpatient Vital Signs collected on the date of the Encounter. Date/Time Temperature Pulse Blood Pressure Respiratory Rate SP02 Pain Height Weight Body Mass Index Source Apr 13, 2024 11:41 AM 97.9 65 108/71 94 3 73 264.4 35 [facility] Immunizations: All administered on the encounter date This section contains immunizations associated to the Encounter. Immunization Series Date Issued Administered By Site Reaction Lot Number CVX Code Drug Manager Nursing Comment(s) Source COVID-19 (MODERNA), MRNA, LNP-S, PF, 50 MCG/0.5 ML (AGES 12+ YEARS) Apr 13, 2024 HERMAN KWAN LEFT DELTO ID [id number] [employer] Booster for Series, ADMINISTERE D AT [place], [facility] Social History: Smoking Status (Most current) and Tobacco Use (All prior to encounter date) This section includes the most current, and the historical, smoking and tobacco- related health factors from the [place] facility where the Encounter took place. Current Smoking Status This section includes the most current smoking, or tobacco-related health factor, from the [place] facility where the Encounter took place. Date/Time Current Smoking Status Comment Saima faith Apr 13, 2024 11:30 AM [place]-TOBACCO FORMER USER [facility] Tobacco Use History This section includes a history of the smoking, or tobacco-related health factors, that were collected on or before the date of the Encounter. The data comes from the [place] facility where the Encounter took place. Date/Time Smoking Status/Tobacco Use Comment Leigh Ann smith Apr 13, 2024 11:30 AM VA-TOBACCO QUIT 15 YRS OR MORE [facility] May 18, 2023 11:30 AM VA-TOBACCO FORMER USER [facility] May 18, 2023 11:30 AM VA-TOBACCO QUIT 15 YRS OR MORE [facility] Jul 18, 2021 02:30 PM VA-TOBACCO FORMER USER [facility] Jul 18, 2021 02:30 PM VA-TOBACCO QUIT 15 YRS OR MORE [facility] Sep 09, 2013 12:30 PM V9 LIFETIME NON-USER OF TOBACCO [facility] Radiology Reports: +/- 30 days of the encounter Radiology Reports For cases when an order for radiology services may have been completed prior to the date of the Encounter, the report list includes the Radiology Reports that were completed up to 30 days before dateof the Encounter. For cases when an order for radiology services may have been completed after the date of the Encounter, the report list also includes the Radiology Reports that were completed up to30 days after date of the Encounter. The data comes from all [place] treatment facilities. Date/Time Radiology Report Provider Source Apr 13, 2024 01:14 PM KNEE-RIGHT 4 OR MORE VIEWS: DESIRAE MARY [facility] [id number] -[id number] M Exm Date: APR 13, 2024@13:14 Req Phys: KATT GOTTI Pat Loc: [facility] 16-1 (Req'g Loc) Img Loc: [facility] RADIOLOGY Service: [place] [address] (Case [id number] COMPLETE)KNEE-RIGHT 4 OR MORE VIEWS (RAD Detailed) CPT:52543 Proc Modifiers : WEIGHT BEARING Reason for Study: chronic right knee pain and swelling Clinical History: Report Status: Verified Date Reported: APR 19, 2024 Date Verified: APR 19, 2024 [employer] E-Sig: Report: KNEE-RIGHT 4 OR MORE VIEWS HISTORY: chronic right knee pain and swelling TECHNIQUE: AP weightbearing views of the bilateral knees. PA weightbearing views of the bilateral knees, weightbearing lateral view of the right knee, and sunrise view of the right knee were obtained. COMPARISON:None available FINDINGS: No fracture or dislocation is seen. There is moderate tricompartmental osteoarthrosis of the knee joint. This is an atypical distribution, more pronounced in the lateral as compared to the medial compartment of the knee joint. No chondrocalcinosis seen. The patella is anatomically aligned with respect to the intercondylar notch of the distal femur. Small knee joint effusion is seen. There are enthesopathic changes on the inferior pole of the patella at the origin of the patellar tendon. Enthesopathic changes are also present on the tibial tuberosity. The bones are demineralized. The contralateral left knee displays mild osteoarthrosis, evaluated only on frontal radiographs. Impression: 1. Moderate tricompartmental osteoarthrosis of the right knee joint most pronounced in the lateral compartment. 2. Small right knee joint effusion. Primary Diagnostic Code: NO ALERT REQUIRED Primary Interpreting Staff: NARENDRA THAYER, Staff Physician Verified by correspondent for NARENDRA THAYER /NARENDRA RODAS [facility] Apr 13, 2024 01:14 PM CHEST TWO(2) VIEW PA&LAT: DESIRAE MARY [facility] [id number] -[id number] M Exm Date: APR 13, 2024@13:14 Req Phys: KATT GOTTI Pat Loc: [facility] 16-1 (Req'g Loc) Img Loc: [facility] RADIOLOGY Service: [place] [address] (Case [id number] COMPLETE)CHEST TWO(2) VIEW PA&LAT (RAD Detailed) CPT:46466 Reason for Study: cough Clinical History: reports recent h/o emesis aspiration h/o esphogeal cancer Report Status: Verified Date Reported: APR 19, 2024 Date Verified: APR 19, 2024 [employer] E-Sig: Report: PA and lateral chest CLINICAL INFORMATION: Cough TECHNIQUE: Upright PA and lateral views FINDINGS: No prior CXR is available for comparison. Mild streaky parenchymal opacity is present in the lateral base of the left lung. The right lung appears well expanded. The cardiac silhouette is at the upper limits of normal in size to slightly enlarged. The pulmonary vascularity appears unremarkable. There is no evidence of pleural effusion or pneumothorax. Surgical clips are demonstrated in the epigastric region and near the thoracic inlet. Impression: Mild atelectasis or parenchymal scarring in the lateral base of the left lung. Borderline to mild cardiomegaly. Primary Diagnostic Code: NO ALERT REQUIRED Primary Interpreting Staff: CHRISTEN JACOBO, RADIOLOGIST Verified by correspondent for CHRISTEN JACOBO /CHRISTEN [facility] Encounter Notes: All associated encounter notes This section contains the clinical notes associated to the Encounter. Date/Time Encounter Note(s) Provider Source May 06, 2024 10:23 AM ADDENDUM: LOCAL TITLE: Addendum STANDARD TITLE: ADDENDUM DATE OF NOTE: MAY 06, 2024@10:23:33 ENTRY DATE: MAY 06, 2024@10:23:34 AUTHOR: JOSE RAUSCH EXP COSIGNER: URGENCY: STATUS: COMPLETED please f/u with pt about his uncontrolled lipids. High cholesterol, DM and untreated ALLISON all contribute significantly to dementia risk, much more than risk of statin medications and reason why those are recommended as benefits outweigh the risks. Would strongly encourage seeing resaw operator and getting on medication like low dose crestor 10mg daily for his uncontrolled cardiovascular risks. /debra/ Jose Rausch MD Primary Care Attending Signed: 05/06/2024 10:25 Receipt Acknowledged By: 05/09/2024 15:09 /debra/ Shellie Pritchard RN staff respiratory therapist --- Original Document --- 04/13/24 PC PROGRESS NOTE: ID: 68 year old MALE Chief Complaint: Ongoing management of active/chronic medical problems HPI: Connie Mary is here today for annual appt. DM2: Has been out of testing supplies. Has not tested this year. Endorses symptoms of hypoglycemia. Denies polyuria, polydipsia, and polyphagia. Monitors diet, occasionally consumes too many starches. Last saw nonVA optometry a couple months ago for dilated exam says his eyes are OK. Tried metformin, had worsening diarrhea and so this was stopped. Right Knee Pain: Small meniscal tear about 20 yrs ago. A fall 2 yrs ago (in June) hyperextended while catching self. Want to avoid surgery. Last time this was checked by Ortho said possible arthroscopic debridement. Denies locking, popping. Endorses buckling, giving way last 3 months. 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 Ankylosing spondylitis 2. Hypercholesterolemia (SCT 84594501) declines statins 3. Chronic Kidney Disease Stage 3 (SCT 454934130) 4. Hypercalcemia (SCT 58811770) 5. Obstructive sleep apnea syndrome 6. History of malignant neoplasm of esophagus 7. Chronic kidney disease stage 3 due to type 2 diabetes mellitus 8. History of calculus of kidney 9. Benign hypertensive renal disease 10. Obesity (SNOMED CT 228126938) 11. Gastroesophageal reflux disease (SNOMED CT 528664007) 12. Gout (SNOMED CT 01403743) -REVIEW OF SYSTEMS- ROS: As above, otherwise: - General: NO fevers / chills / night sweats / weight loses/gains - Eyes: NO changes or difficulty with vision - C/V: NO chest pain / palpitations - Resp: YES h/o GERD aspiration; NO cough / sputum / SOB or MURRY - GI: YES dysphagia / GERD / vomiting / diarrhea; NO constipation / black or bloody stools - : YES weak stream / nocturia x1 / frequency; NO dysuria / hematuria / urgency - INTEG: YES h/o SCC; NO rashes / lesions / ecchymosis / pruritis / easy bruising - Neuro: YES gait changes r/t occ right foot tingling and h/o right ankle injury; NO headache / weakness - PSYCH: YES irritability; NO depression / anxiety / mood changes / suicidal thinking Allergies: PENICILLIN Medications: Active and Recently Outpatient Medications (including Supplies): Active Outpatient Medications Status 1) ALLOPURINOL 300MG TAB TAKE ONE TABLET BY MOUTH DAILY ACTIVE FOR GOUT 2) CHLORTHALIDONE 25MG TAB TAKE ONE-HALF TABLET BY MOUTH ACTIVE DAILY FOR BLOOD PRESSURE 3) LISINOPRIL 40MG TAB TAKE ONE TABLET BY MOUTH DAILY ACTIVE FOR HIGH BLOOD PRESSURE 4) PANTOPRAZOLE NA 40MG EC TAB TAKE ONE TABLET BY MOUTH ACTIVE TWICE A DAY 30 MINUTES BEFORE A MEAL FOR STOMACH -TAKE ON AN EMPTY STOMACH. 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 Smoked ~ 10 years 1/2 ppd Recreational drugs: denies HEALTH MAINTENANCE: - LDL: last 141 05/2023, ordered by PACT PCP for today - A1c: last 6.7 05/2023, ordered by PACT PCP for today - Immunizations: per PACT ABSORPTION PLANT OPERATOR HELPER today had 2 vaccines - CRC: FIT ordered - PSA: not recommended d/t age VITALS: Temp: 97.7 F [36.5 C] (05/18/2023 11:40) Pulse: 57 (05/18/2023 11:40) Resp: 14 (06/17/2022 14:03) BP: 149/79 (05/18/2023 11:40) Height: 73 in [185.4 cm] (05/18/2023 11:40) Weight: 278.6 lb [126.37 kg] (05/18/2023 11:40) Pain: 5 (05/18/2023 11:40) VITALS: Temp: 97.9 F [36.6 C] (04/13/2024 11:41) Pulse: 65 (04/13/2024 11:41) Resp: 14 (06/17/2022 14:03) BP: 108/71 (04/13/2024 11:41) Height: 73 in [185.4 cm] (04/13/2024 11:41) Weight: 264.4 lb [119.93 kg] (04/13/2024 11:41) Pain: 3 (04/13/2024 11:41) -PHYSICAL EXAM- GENERAL: A&OX3, NAD HEENT: Head: normocephalic, midline. Sclera anicteric. Mild RED CLIFF RESP: CTA throughout. Unlabored. No wheezing or adventitious breath sounds. CV: S1S2 regular. No murmur, rubs or gallops. Radial pulses 2+ bilat. ABD: Rounded, centralized adiposity. BT normoactive. Abd soft, nontender. INTEG: Grossly pink/warm/dry Extremities: BLE lower leg varicose veins. No ankle edema @ this time. MSK: Gross strength 5/5. Gait wide, right knee mildly erythemic and lateral joint margin swelling and ttp PSYCH: Pleasant. Cooperative. Appropriately dressed/groomed. ASSESSMENT/PLAN: 1. Type 2 diabetes mellitus with unspecified complications: -A1c, CMP, microalbumin ordered -continue low carbohydrate nutrition pls -renew diabetic testing supplies ordered today -h/o metformin intolerance w/ bad diarrhea added to list -continue nonVA optometry -vaccinations done in clinic by PACT ABSORPTION PLANT OPERATOR HELPER today 2. Hypercholesterolemia: -lipids ordered -declines statins d/t risk of dementia -pls continue to consume lean proteins, plant-based protein MAY be the healthiest choices AND lots of green vegetables 3. Chronic Kidney Disease Stage 3: -CMP, microalbumin today -BP goal under 130/80 met 4. Hypercalcemia: -CMP, vitD ordered 5. Obstructive sleep apnea syndrome: -not using CPAP, last home sleep study done by an employer physical -consider [place] sleep med prn 6. History of malignant neoplasm of esophagus: -pls report pain or increased dysphagia promptly to PACT -CXR ?aspiration last January 2024 7. Chronic kidney disease stage 3 due to type 2 diabetes mellitus: -BP goal under 130/80 met -MUST continue PPI r/t #11 and #6 -continue limitation of NSAIDs like aspirin -see #1 and #9 8. History of calculus of kidney -denies flares 9. Benign hypertensive renal disease: -BP goal 130/80 -CMP, microalbumin today -continue lisinopril 40mg PO q day -continue chlorthalidone 12.5mg PO q AM 10. Obesity: -will try [place] Keemotion Program, consult placed -here is the website https://[employer].Analytics Quotient.gov/ 11. Gastroesophageal reflux disease: -continue pantoprazole 40mg PO BID -CXR ?aspiration last January 2024 -consider GI referral 12. Gout: -denies flares -uric acid level today -continue allopurinol 300mg PO q day 13. Right Knee Pain: -likely OA, highly suspect chronic tendinopathy as well -uric acid today r/o gout flare -XR ordered -PT eval/treat -consider hinged knee brace, defer today -weight loss will help (see #10) 14. Localized Swelling, Mass and Lump, right upper Limb (Right Thumb PIP Skin Papule): -possible foreign body -trial warm (NOT hot), soapy soaks TID and see if this helps -consider hand surgeon/derm referral, declines this today 15. Varicose Veins: -continue compression socks -prosthetics request for Flexitouch today -this will hopefully help knee pain/swelling as well The outpatient Essential Medication list for review (EMLR) was reviewed with the patient/caregiver. Discrepancies have been corrected. Management plan reviewed with Pt, who agrees with the plan. Patient/caregiver voiced an understanding of the topics covered/discussed in today's visit and denies further questions or concerns @ this time. Follow-up: RTC annual due 04/2025, sooner prn TIME SPENT IN THE CLINICAL CARE OF THIS : 40 Avg Risk Colorectal Cancer Screen: AVERAGE RISK colorectal cancer screening is due based on information available to this clinical reminder FOBT/FIT (Fecal Immunochemical Testing) has been ordered. See order tab for details. Hepatitis C Testing: Patient has given verbal consent for HCV antibody testing. An HCV lab test has been ordered - see orders tab. Assess Statin Use - Lipids (CVD/DM): The patient declines to be treated with a statin. Eye Care At-Risk Screen : Patient identified to be at risk for the following eye condition(s): DIABETIC RETINOPATHY: Diabetes Diagnosis Information: Encounter Diagnosis: 04/13/2024@11:30 E11.8 (ICD-10-CM) Type 2 Diabetes Mellitus with unspecified Complications rank: PRIMARY Prov. Narr. - Type 2 diabetes mellitus (SNOMED CT 78441667) MACULAR DEGENERATION: Macular Degeneration Risk Factors Information: Reminder Term: VA-AMD RISK FACTORS Encounter Diagnosis: 05/18/2023@11:30 Z68.36 (ICD-10-CM) Body mass index [BMI] 36.0-36.9, adult rank: SECONDARY Prov. Narr. - Body mass index [BMI] 36.0-36.9, adult Action: No Referral Ordered: Eye exam completed elsewhere by an Manager It Security or Shank Stitcher Diabetic retinal exam result: Results Unknown (recommended that patient proceed with eye care request or obtain outside retinal exam result within 90 days) Date: December, ? Exact date is unknown Location: [place] @ [facility] Nephropathy Screen (Prov) (V9): eGFR and uACR ordered previously by PACT PCP /debra/ KATT GOTTI PRIMARY CARE EMBLEM FUSER TENDER Signed: 04/13/2024 13:09 04/13/2024 ADDENDUM STATUS: COMPLETED PACT ABSORPTION PLANT OPERATOR HELPER: Pls mail out FIT. Thank you /debra/ KATT GOTTI PRIMARY CARE EMBLEM FUSER TENDER Signed: 04/13/2024 13:13 Receipt Acknowledged By: 04/13/2024 13:35 /debra/ HERMAN KWAN ABSORPTION PLANT OPERATOR HELPER STAFF ABSORPTION PLANT OPERATOR HELPER 04/13/2024 ADDENDUM STATUS: COMPLETED PACT MSA: Can you pls request the last diabetic eye exam from co-managed medic technician Dr Anderson Cao, in [place] [facility]? Thank you. /debra/ KATT GOTTI PRIMARY CARE EMBLEM FUSER TENDER Signed: 04/13/2024 13:39 Receipt Acknowledged By: 04/14/2024 14:45 /debra/ MIGUEL ANGEL GUY Advanced Senior Sql Dba 04/14/2024 ADDENDUM STATUS: COMPLETED Sent fax to receive records of last diabetic eye exam. /debra/ MIGUEL ANGEL GUY Advanced Senior Sql Dba Signed: 04/14/2024 14:45 JOSE RAUSCH [facility] Apr 19, 2024 04:06 PM PRIMARY CARE LETTERS: LOCAL TITLE: PC LETTER TEST RESULTS STANDARD TITLE: PRIMARY CARE LETTERS DATE OF NOTE: APR 19, 2024@16:06 ENTRY DATE: APR 19, 2024@16:06:39 AUTHOR: KATT GOTTI COSIGNER: URGENCY: STATUS: COMPLETED [facility] [address] [place] [address] Mr. DESIRAE GRAY USMAN [address] [facility] [address], [place] [address] APR 19, 2024 Dear Mr. DESIRAE GRAY USMAN Your Primary Care Provider has reviewed your recent tests, and wanted us to let you know that everything looked stable. A copy of your test results is attached below. You may notice that some tests are listed as outside normal limits. Your Primary Care Provider has reviewed these results, and has determined these are not considered to be significant at this time. There are no recommended changes in your medications or treatment plan at this time. Please call us if you have questions or problems. You can reach us at (toll free number) or [phone] (local number). If you are enrolled in [employer], and utilize those services, you may prefer to contact us by secure message. Thank you for your service to our Country. We are honored to be able to provide medical care to you. 04/13/2024 CHEST TWO(2) VIEW PA&LAT [id number] Verified 1208 Mild atelectasis or parenchymal scarring in the lateral base of the left lung. Borderline to mild cardiomegaly. PLAN: Because you are feeling better after the incident in when you aspirated, I do not believe we need to do any further work-up at this time. IF, however, you begin to have cough or shortness of breath, then I think we could consider completing a pulmonary function test and maybe a CT of your lungs. For the borderline enlarged heart, we need to continue a blood pressure under 130/80 please. And of course please contact your team if you have chest pain/pressure, unless it is severe or persistent then call 911! Pls let us know if you have any questions or concerns. Nice to meet you and take care Sincerely, /debra/ KATT GOTTI PRIMARY CARE EMBLEM FUSER TENDER Patient Record Number [id number] KATT GOTTI [facility] Apr 19, 2024 09:21 AM PRIMARY CARE LETTERS: LOCAL TITLE: PC LETTER TEST RESULTS STANDARD TITLE: PRIMARY CARE LETTERS DATE OF NOTE: APR 19, 2024@09:21 ENTRY DATE: APR 19, 2024@09:21:41 AUTHOR: KATT GOTTI EXP COSIGNER: URGENCY: STATUS: COMPLETED [facility] [address] [place] [address] Rafael MARY [address] [place] [address] APR 19, 2024 Dear Mr. DESIRAE MARY Your Primary Care Provider has reviewed your recent tests. A copy of your test results is attached below. You may notice that some tests are listed as outside normal limits. Please call us if you have questions or problems. You can reach us at (toll free number) or [phone] (local number). If you are enrolled in [employer], and utilize those services, you may prefer to contact us by secure message. Thank you for your service to our Country. We are honored to be able to provide medical care to you. Recent labwork Collection DT Specimen Test Name Result Units Ref Range 04/13/2024 12:59 SERUM !! 25-OH VITAMIN D 52.9 H ng/mL 20.0 - 50.0 04/13/2024 12:59 BLOOD !! GLYCOHEMOGLOBIN 6.7 H % 4.4 - 6.4 04/13/2024 12:59 PLASMA!! CHOLESTEROL 195 mg/dL 0 - 199 !! TRIGLYCERIDE 84 mg/dL 0 - 149 !! HDL CHOLESTEROL 65 mg/dL 40 - 69 !! DIRECT LDL CHOL. 129 H mg/dL 0 - 100 !! SODIUM 142 mmol/L 136 - 145 !! POTASSIUM 4.4 mmol/L 3.5 - 5.1 !! CHLORIDE 110 H mmol/L 98 - 107 !! CO2 26 mmol/L 22 - 29 !! ANION GAP 6.0 mEq/L 3 - 19 !! GLUCOSE 118 H mg/dL 74 - 100 !! UREA NITROGEN 23 mg/dL 9 - 25 !! CREATININE 1.43 H mg/dL 0.72 - 1.25 !! eGFR (CKD-EPI) 53 SEE EVAL !! CALCIUM 10.1 mg/dL 8.4 - 10.2 !! TOTAL PROTEIN 7.2 g/dL 6.4 - 8.3 !! ALBUMIN 4.2 g/dL 3.5 - 5.2 !! TOTAL BILIRUBIN 0.6 mg/dL 0.2 - 1.2 !! AST 19 U/L 5 - 34 !! ALT 19 U/L 0 - 55 !! ALK PHOS 79 U/L 40 - 150 !! URIC ACID 6.0 mg/dL 3.5 - 7.2 !! B12 VITAMIN 364 pg/mL 213 - 816 !! FERRITIN 89.0 ng/mL 21.8 - 274.7 !! TSH 1.1815 mIU/mL 0.3500 - 4.9400 Recent radiology results Date Procedure CPT Status Case # 04/13/2024 KNEE-RIGHT 4 OR MORE VIEWS [id number] Verified 1207 1. Moderate tricompartmental osteoarthrosis of the right knee joint most pronounced in the lateral compartment. 2. Small right knee joint effusion. PLAN: As we discussed, your knee has arthritis. We could consider getting you fitted for a supportive knee brace, maybe one w/hinges because I also suspect you have soft tissue changes as well. Please keep your 05/18/2024 11:30 JULIO PT5 appt w/the Physical Therapist who can help you w/your knee. Your diabetes is stable, however you vitamin D was slightly high so you COULD consider decreasing your vitamin for a little while although I would not recommend for long because the days are getting shorter and darker. Your kidney function is slightly worse. Please remember hydration (about 1500ml daily) and avoid medications that can worsen kidneys function (like NSAIDS- ibuprofen, naproxen, aspirin, etc). I really would recommend/encourage a daily statin to help protect you from stroke or heart attack. Not only does diabetes and hypertension increase your risk, but your LDL is on the high side as well. Please contact you PACT Team RN if you would agree to starting a statin! We should have talked about this more when we met, my apologies for having to ask for you to call in. Thank you for your service, your kindness, and your patience. Please take care! Sincerely, /es/ KATT GOTTI PRIMARY CARE EMBLEM FUSER TENDER Patient Record Number [id number] KATT GOTTI [facility] Apr 13, 2024 01:38 PM ADDENDUM: LOCAL TITLE: Addendum STANDARD TITLE: ADDENDUM DATE OF NOTE: APR 13, 2024@13:38:45 ENTRY DATE: APR 13, 2024@13:38:45 AUTHOR: KATT GOTTI EXP COSIGNER: URGENCY: STATUS: COMPLETED PACT MSA: Can you pls request the last diabetic eye exam from co-managed medic technician Dr Anderson Cao, in [place] [facility]? Thank you. /debra/ KATT GOTTI PRIMARY CARE EMBLEM FUSER TENDER Signed: 04/13/2024 13:39 Receipt Acknowledged By: 04/14/2024 14:45 /es/ MIGUEL ANGEL GUY Advanced Senior Sql Dba --- Original Document --- 04/13/24 PC PROGRESS NOTE: ID: 68 year old MALE Chief Complaint: Ongoing management of active/chronic medical problems HPI: Connie Mary is here today for annual appt. DM2: Has been out of testing supplies. Has not tested this year. Endorses symptoms of hypoglycemia. Denies polyuria, polydipsia, and polyphagia. Monitors diet, occasionally consumes too many starches. Last saw nonVA optometry a couple months ago for dilated exam says his eyes are OK. Tried metformin, had worsening diarrhea and so this was stopped. Right Knee Pain: Small meniscal tear about 20 yrs ago. A fall 2 yrs ago (in June) hyperextended while catching self. Want to avoid surgery. Last time this was checked by Ortho said possible arthroscopic debridement. Denies locking, popping. Endorses buckling, giving way last 3 months. 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 Ankylosing spondylitis 2. Hypercholesterolemia (SCT 96232279) declines statins 3. Chronic Kidney Disease Stage 3 (SCT 176160985) 4. Hypercalcemia (SCT 89777734) 5. Obstructive sleep apnea syndrome 6. History of malignant neoplasm of esophagus 7. Chronic kidney disease stage 3 due to type 2 diabetes mellitus 8. History of calculus of kidney 9. Benign hypertensive renal disease 10. Obesity (SNOMED CT 419726264) 11. Gastroesophageal reflux disease (SNOMED CT 295749798) 12. Gout (SNOMED CT 60188928) -REVIEW OF SYSTEMS- ROS: As above, otherwise: - General: NO fevers / chills / night sweats / weight loses/gains - Eyes: NO changes or difficulty with vision - C/V: NO chest pain / palpitations - Resp: YES h/o GERD aspiration; NO cough / sputum / SOB or MURRY - GI: YES dysphagia / GERD / vomiting / diarrhea; NO constipation / black or bloody stools - : YES weak stream / nocturia x1 / frequency; NO dysuria / hematuria / urgency - INTEG: YES h/o SCC; NO rashes / lesions / ecchymosis / pruritis / easy bruising - Neuro: YES gait changes r/t occ right foot tingling and h/o right ankle injury; NO headache / weakness - PSYCH: YES irritability; NO depression / anxiety / mood changes / suicidal thinking Allergies: PENICILLIN Medications: Active and Recently Outpatient Medications (including Supplies): Active Outpatient Medications Status 1) ALLOPURINOL 300MG TAB TAKE ONE TABLET BY MOUTH DAILY ACTIVE FOR GOUT 2) CHLORTHALIDONE 25MG TAB TAKE ONE-HALF TABLET BY MOUTH ACTIVE DAILY FOR BLOOD PRESSURE 3) LISINOPRIL 40MG TAB TAKE ONE TABLET BY MOUTH DAILY ACTIVE FOR HIGH BLOOD PRESSURE 4) PANTOPRAZOLE NA 40MG EC TAB TAKE ONE TABLET BY MOUTH ACTIVE TWICE A DAY 30 MINUTES BEFORE A MEAL FOR STOMACH -TAKE ON AN EMPTY STOMACH. 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 Smoked ~ 10 years 1/2 ppd Recreational drugs: denies HEALTH MAINTENANCE: - LDL: last 141 05/2023, ordered by PACT PCP for today - A1c: last 6.7 05/2023, ordered by PACT PCP for today - Immunizations: per PACT ABSORPTION PLANT OPERATOR HELPER today had 2 vaccines - CRC: FIT ordered - PSA: not recommended d/t age VITALS: Temp: 97.7 F [36.5 C] (05/18/2023 11:40) Pulse: 57 (05/18/2023 11:40) Resp: 14 (06/17/2022 14:03) BP: 149/79 (05/18/2023 11:40) Height: 73 in [185.4 cm] (05/18/2023 11:40) Weight: 278.6 lb [126.37 kg] (05/18/2023 11:40) Pain: 5 (05/18/2023 11:40) VITALS: Temp: 97.9 F [36.6 C] (04/13/2024 11:41) Pulse: 65 (04/13/2024 11:41) Resp: 14 (06/17/2022 14:03) BP: 108/71 (04/13/2024 11:41) Height: 73 in [185.4 cm] (04/13/2024 11:41) Weight: 264.4 lb [119.93 kg] (04/13/2024 11:41) Pain: 3 (04/13/2024 11:41) -PHYSICAL EXAM- GENERAL: A&OX3, NAD HEENT: Head: normocephalic, midline. Sclera anicteric. Mild RED CLIFF RESP: CTA throughout. Unlabored. No wheezing or adventitious breath sounds. CV: S1S2 regular. No murmur, rubs or gallops. Radial pulses 2+ bilat. ABD: Rounded, centralized adiposity. BT normoactive. Abd soft, nontender. INTEG: Grossly pink/warm/dry Extremities: BLE lower leg varicose veins. No ankle edema @ this time. MSK: Gross strength 5/5. Gait wide, right knee mildly erythemic and lateral joint margin swelling and ttp PSYCH: Pleasant. Cooperative. Appropriately dressed/groomed. ASSESSMENT/PLAN: 1. Type 2 diabetes mellitus with unspecified complications: -A1c, CMP, microalbumin ordered -continue low carbohydrate nutrition pls -renew diabetic testing supplies ordered today -h/o metformin intolerance w/ bad diarrhea added to list -continue nonVA optometry -vaccinations done in clinic by PACT ABSORPTION PLANT OPERATOR HELPER today 2. Hypercholesterolemia: -lipids ordered -declines statins d/t risk of dementia -pls continue to consume lean proteins, plant-based protein MAY be the healthiest choices AND lots of green vegetables 3. Chronic Kidney Disease Stage 3: -CMP, microalbumin today -BP goal under 130/80 met 4. Hypercalcemia: -CMP, vitD ordered 5. Obstructive sleep apnea syndrome: -not using CPAP, last home sleep study done by an employer physical -consider [place] sleep med prn 6. History of malignant neoplasm of esophagus: -pls report pain or increased dysphagia promptly to PACT -CXR ?aspiration last January 2024 7. Chronic kidney disease stage 3 due to type 2 diabetes mellitus: -BP goal under 130/80 met -MUST continue PPI r/t #11 and #6 -continue limitation of NSAIDs like aspirin -see #1 and #9 8. History of calculus of kidney -denies flares 9. Benign hypertensive renal disease: -BP goal 130/80 -CMP, microalbumin today -continue lisinopril 40mg PO q day -continue chlorthalidone 12.5mg PO q AM 10. Obesity: -will try [place] Keemotion Program, consult placed -here is the website https://[place].gov/ 11. Gastroesophageal reflux disease: -continue pantoprazole 40mg PO BID -CXR ?aspiration last January 2024 -consider GI referral 12. Gout: -denies flares -uric acid level today -continue allopurinol 300mg PO q day 13. Right Knee Pain: -likely OA, highly suspect chronic tendinopathy as well -uric acid today r/o gout flare -XR ordered -PT eval/treat -consider hinged knee brace, defer today -weight loss will help (see #10) 14. Localized Swelling, Mass and Lump, right upper Limb (Right Thumb PIP Skin Papule): -possible foreign body -trial warm (NOT hot), soapy soaks TID and see if this helps -consider hand surgeon/derm referral, declines this today 15. Varicose Veins: -continue compression socks -prosthetics request for Flexitouch today -this will hopefully help knee pain/swelling as well The outpatient Essential Medication list for review (EMLR) was reviewed with the patient/caregiver. Discrepancies have been corrected. Management plan reviewed with Pt, who agrees with the plan. Patient/caregiver voiced an understanding of the topics covered/discussed in today's visit and denies further questions or concerns @ this time. Follow-up: RTC annual due 04/2025, sooner prn TIME SPENT IN THE CLINICAL CARE OF THIS : 40 Avg Risk Colorectal Cancer Screen: AVERAGE RISK colorectal cancer screening is due based on information available to this clinical reminder FOBT/FIT (Fecal Immunochemical Testing) has been ordered. See order tab for details. Hepatitis C Testing: Patient has given verbal consent for HCV antibody testing. An HCV lab test has been ordered - see orders tab. Assess Statin Use - Lipids (CVD/DM): The patient declines to be treated with a statin. Eye Care At-Risk Screen : Patient identified to be at risk for the following eye condition(s): DIABETIC RETINOPATHY: Diabetes Diagnosis Information: Encounter Diagnosis: 04/13/2024@11:30 E11.8 (ICD-10-CM) Type 2 Diabetes Mellitus with unspecified Complications rank: PRIMARY Prov. Narr. - Type 2 diabetes mellitus (SNOMED CT 73090533) MACULAR DEGENERATION: Macular Degeneration Risk Factors Information: Reminder Term: VA-AMD RISK FACTORS Encounter Diagnosis: 05/18/2023@11:30 Z68.36 (ICD-10-CM) Body mass index [BMI] 36.0-36.9, adult rank: SECONDARY Prov. Narr. - Body mass index [BMI] 36.0-36.9, adult Action: No Referral Ordered: Eye exam completed elsewhere by an Manager It Security or Shank Stitcher Diabetic retinal exam result: Results Unknown (recommended that patient proceed with eye care request or obtain outside retinal exam result within 90 days) Date: December, ? Exact date is unknown Location: [place] [facility] Nephropathy Screen (Prov) (V9): eGFR and uACR ordered previously by PACT PCP /debra/ KATT GOTTI PRIMARY CARE EMBLEM FUSER TENDER Signed: 04/13/2024 13:09 04/13/2024 ADDENDUM STATUS: COMPLETED PACT ABSORPTION PLANT OPERATOR HELPER: Pls mail out FIT. Thank you /debra/ KATT GOTTI PRIMARY CARE EMBLEM FUSER TENDER Signed: 04/13/2024 13:13 Receipt Acknowledged By: 04/13/2024 13:35 /debra/ HERMAN KWAN [facility] STAFF ABSORPTION PLANT OPERATOR HELPER 04/14/2024 ADDENDUM STATUS: COMPLETED Sent fax to receive records of last diabetic eye exam. /debra/ MIGUEL ANGEL GUY Advanced Senior Sql Dba Signed: 04/14/2024 14:45 KATT GOTTI [facility] Apr 13, 2024 01:13 PM ADDENDUM: LOCAL TITLE: Addendum STANDARD TITLE: ADDENDUM DATE OF NOTE: APR 13, 2024@13:13:25 ENTRY DATE: APR 13, 2024@13:13:26 AUTHOR: KATT GOTTI EXP COSIGNER: URGENCY: STATUS: COMPLETED PACT ABSORPTION PLANT OPERATOR HELPER: Pls mail out FIT. Thank you /debra/ KATT GOTTI PRIMARY CARE EMBLEM FUSER TENDER Signed: 04/13/2024 13:13 Receipt Acknowledged By: 04/13/2024 13:35 /debra/ HERMAN KWAN ABSORPTION PLANT OPERATOR HELPER STAFF ABSORPTION PLANT OPERATOR HELPER --- Original Document --- 04/13/24 PC PROGRESS NOTE: ID: 68 year old MALE Chief Complaint: Ongoing management of active/chronic medical problems HPI: Connie Mary is here today for annual appt. DM2: Has been out of testing supplies. Has not tested this year. Endorses symptoms of hypoglycemia. Denies polyuria, polydipsia, and polyphagia. Monitors diet, occasionally consumes too many starches. Last saw nonVA optometry a couple months ago for dilated exam says his eyes are OK. Tried metformin, had worsening diarrhea and so this was stopped. Right Knee Pain: Small meniscal tear about 20 yrs ago. A fall 2 yrs ago (in June) hyperextended while catching self. Want to avoid surgery. Last time this was checked by Ortho said possible arthroscopic debridement. Denies locking, popping. Endorses buckling, giving way last 3 months. 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 Ankylosing spondylitis 2. Hypercholesterolemia (SCT 99819194) declines statins 3. Chronic Kidney Disease Stage 3 (SCT 351179608) 4. Hypercalcemia (SCT 70034232) 5. Obstructive sleep apnea syndrome 6. History of malignant neoplasm of esophagus 7. Chronic kidney disease stage 3 due to type 2 diabetes mellitus 8. History of calculus of kidney 9. Benign hypertensive renal disease 10. Obesity (SNOMED CT 849732437) 11. Gastroesophageal reflux disease (SNOMED CT 578639660) 12. Gout (SNOMED CT 32407693) -REVIEW OF SYSTEMS- ROS: As above, otherwise: - General: NO fevers / chills / night sweats / weight loses/gains - Eyes: NO changes or difficulty with vision - C/V: NO chest pain / palpitations - Resp: YES h/o GERD aspiration; NO cough / sputum / SOB or MURRY - GI: YES dysphagia / GERD / vomiting / diarrhea; NO constipation / black or bloody stools - : YES weak stream / nocturia x1 / frequency; NO dysuria / hematuria / urgency - INTEG: YES h/o SCC; NO rashes / lesions / ecchymosis / pruritis / easy bruising - Neuro: YES gait changes r/t occ right foot tingling and h/o right ankle injury; NO headache / weakness - PSYCH: YES irritability; NO depression / anxiety / mood changes / suicidal thinking Allergies: PENICILLIN Medications: Active and Recently Outpatient Medications (including Supplies): Active Outpatient Medications Status 1) ALLOPURINOL 300MG TAB TAKE ONE TABLET BY MOUTH DAILY ACTIVE FOR GOUT 2) CHLORTHALIDONE 25MG TAB TAKE ONE-HALF TABLET BY MOUTH ACTIVE DAILY FOR BLOOD PRESSURE 3) LISINOPRIL 40MG TAB TAKE ONE TABLET BY MOUTH DAILY ACTIVE FOR HIGH BLOOD PRESSURE 4) PANTOPRAZOLE NA 40MG EC TAB TAKE ONE TABLET BY MOUTH ACTIVE TWICE A DAY 30 MINUTES BEFORE A MEAL FOR STOMACH -TAKE ON AN EMPTY STOMACH. 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 Smoked ~ 10 years 1/2 ppd Recreational drugs: denies HEALTH MAINTENANCE: - LDL: last 141 05/2023, ordered by PACT PCP for today - A1c: last 6.7 05/2023, ordered by PACT PCP for today - Immunizations: per PACT ABSORPTION PLANT OPERATOR HELPER today had 2 vaccines - CRC: FIT ordered - PSA: not recommended d/t age VITALS: Temp: 97.7 F [36.5 C] (05/18/2023 11:40) Pulse: 57 (05/18/2023 11:40) Resp: 14 (06/17/2022 14:03) BP: 149/79 (05/18/2023 11:40) Height: 73 in [185.4 cm] (05/18/2023 11:40) Weight: 278.6 lb [126.37 kg] (05/18/2023 11:40) Pain: 5 (05/18/2023 11:40) VITALS: Temp: 97.9 F [36.6 C] (04/13/2024 11:41) Pulse: 65 (04/13/2024 11:41) Resp: 14 (06/17/2022 14:03) BP: 108/71 (04/13/2024 11:41) Height: 73 in [185.4 cm] (04/13/2024 11:41) Weight: 264.4 lb [119.93 kg] (04/13/2024 11:41) Pain: 3 (04/13/2024 11:41) -PHYSICAL EXAM- GENERAL: A&OX3, NAD HEENT: Head: normocephalic, midline. Sclera anicteric. Mild RED CLIFF RESP: CTA throughout. Unlabored. No wheezing or adventitious breath sounds. CV: S1S2 regular. No murmur, rubs or gallops. Radial pulses 2+ bilat. ABD: Rounded, centralized adiposity. BT normoactive. Abd soft, nontender. INTEG: Grossly pink/warm/dry Extremities: BLE lower leg varicose veins. No ankle edema @ this time. MSK: Gross strength 5/5. Gait wide, right knee mildly erythemic and lateral joint margin swelling and ttp PSYCH: Pleasant. Cooperative. Appropriately dressed/groomed. ASSESSMENT/PLAN: 1. Type 2 diabetes mellitus with unspecified complications: -A1c, CMP, microalbumin ordered -continue low carbohydrate nutrition pls -renew diabetic testing supplies ordered today -h/o metformin intolerance w/ bad diarrhea added to list -continue nonVA optometry -vaccinations done in clinic by PACT ABSORPTION PLANT OPERATOR HELPER today 2. Hypercholesterolemia: -lipids ordered -declines statins d/t risk of dementia -pls continue to consume lean proteins, plant-based protein MAY be the healthiest choices AND lots of green vegetables 3. Chronic Kidney Disease Stage 3: -CMP, microalbumin today -BP goal under 130/80 met 4. Hypercalcemia: -CMP, vitD ordered 5. Obstructive sleep apnea syndrome: -not using CPAP, last home sleep study done by an employer physical -consider [place] sleep med prn 6. History of malignant neoplasm of esophagus: -pls report pain or increased dysphagia promptly to PACT -CXR ?aspiration last January 2024 7. Chronic kidney disease stage 3 due to type 2 diabetes mellitus: -BP goal under 130/80 met -MUST continue PPI r/t #11 and #6 -continue limitation of NSAIDs like aspirin -see #1 and #9 8. History of calculus of kidney -denies flares 9. Benign hypertensive renal disease: -BP goal 130/80 -CMP, microalbumin today -continue lisinopril 40mg PO q day -continue chlorthalidone 12.5mg PO q AM 10. Obesity: -will try [place] Move Program, consult placed -here is the website https://FarmLink.[employer].gov/ 11. Gastroesophageal reflux disease: -continue pantoprazole 40mg PO BID -CXR ?aspiration last January 2024 -consider GI referral 12. Gout: -denies flares -uric acid level today -continue allopurinol 300mg PO q day 13. Right Knee Pain: -likely OA, highly suspect chronic tendinopathy as well -uric acid today r/o gout flare -XR ordered -PT eval/treat -consider hinged knee brace, defer today -weight loss will help (see #10) 14. Localized Swelling, Mass and Lump, right upper Limb (Right Thumb PIP Skin Papule): -possible foreign body -trial warm (NOT hot), soapy soaks TID and see if this helps -consider hand surgeon/derm referral, declines this today 15. Varicose Veins: -continue compression socks -prosthetics request for Flexitouch today -this will hopefully help knee pain/swelling as well The outpatient Essential Medication list for review (EMLR) was reviewed with the patient/caregiver. Discrepancies have been corrected. Management plan reviewed with Pt, who agrees with the plan. Patient/caregiver voiced an understanding of the topics covered/discussed in today's visit and denies further questions or concerns @ this time. Follow-up: RTC annual due 04/2025, sooner prn TIME SPENT IN THE CLINICAL CARE OF THIS : 40 Avg Risk Colorectal Cancer Screen: AVERAGE RISK colorectal cancer screening is due based on information available to this clinical reminder FOBT/FIT (Fecal Immunochemical Testing) has been ordered. See order tab for details. Hepatitis C Testing: Patient has given verbal consent for HCV antibody testing. An HCV lab test has been ordered - see orders tab. Assess Statin Use - Lipids (CVD/DM): The patient declines to be treated with a statin. Eye Care At-Risk Screen : Patient identified to be at risk for the following eye condition(s): DIABETIC RETINOPATHY: Diabetes Diagnosis Information: Encounter Diagnosis: 04/13/2024@11:30 E11.8 (ICD-10-CM) Type 2 Diabetes Mellitus with unspecified Complications rank: PRIMARY Prov. Narr. - Type 2 diabetes mellitus (SNOMED CT 70592946) MACULAR DEGENERATION: Macular Degeneration Risk Factors Information: Reminder Term: VA-AMD RISK FACTORS Encounter Diagnosis: 05/18/2023@11:30 Z68.36 (ICD-10-CM) Body mass index [BMI] 36.0-36.9, adult rank: SECONDARY Prov. Narr. - Body mass index [BMI] 36.0-36.9, adult Action: No Referral Ordered: Eye exam completed elsewhere by an Manager It Security or Shank Stitcher Diabetic retinal exam result: Results Unknown (recommended that patient proceed with eye care request or obtain outside retinal exam result within 90 days) Date: December, ? Exact date is unknown Location: [place] [facility] Nephropathy Screen (Prov) (V9): eGFR and uACR ordered previously by PACT PCP /es/ KATT GOTTI PRIMARY CARE EMBLEM FUSER TENDER Signed: 04/13/2024 13:09 KATT GOTTI [facility] Apr 13, 2024 01:09 PM MEDICATION MGT NOTE: LOCAL TITLE: OUTPATIENT ESSENTIAL MEDICATION LIST FOR REVIEW (EM STANDARD TITLE: MEDICATION MGT NOTE DATE OF NOTE: APR 13, 2024@13:09 ENTRY DATE: APR 13, 2024@13:09:50 AUTHOR: KATT GOTTI EXP COSIGNER: URGENCY: STATUS: COMPLETED Review of medications include: Patient allergies (Remote and Local) and active and pending prescriptions dispensed from this [place] (local) and dispensed from another [place] or [facility] facility (remote and pending) as well as local inpatient orders (pending and active) and clinic medications (IMOs), locally documented non-VA medications and local prescriptions that have or been discontinued in the past 90 days. With the exception of Allergies, if a category is not listed below, it means there were no relevant medications for the patient. ALLERGIES: PENICILLIN, METFORMIN No Remote Allergy/ADR Data available for this patient ACTIVE OUTPATIENT MEDICATIONS LOCAL/REMOTE ALLOPURINOL 300MG TAB Directions: TAKE ONE TABLET BY MOUTH DAILY FOR GOUT Quantity: 90 for 90 days Issued: 05/29/23 Filled: 02/12/24 Expires: 05/29/24 Refills: 1 Status: ACTIVE CHLORTHALIDONE 25MG TAB Directions: TAKE ONE-HALF TABLET BY MOUTH DAILY FOR BLOOD PRESSURE Quantity: 45 for 90 days Issued: 05/29/23 Filled: 03/02/24 Expires: 05/29/24 Refills: 1 Status: ACTIVE LISINOPRIL 40MG TAB Directions: TAKE ONE TABLET BY MOUTH DAILY FOR HIGH BLOOD PRESSURE Quantity: 90 for 90 days Issued: 05/29/23 Filled: 03/02/24 Expires: 05/29/24 Refills: 1 Status: ACTIVE PANTOPRAZOLE NA 40MG EC TAB Directions: TAKE ONE TABLET BY MOUTH TWICE A DAY 30 MINUTES BEFORE A MEAL FOR STOMACH -TAKE ON AN EMPTY STOMACH. Quantity: 180 for 90 days Issued: 08/14/23 Filled: 03/28/24 Expires: 08/14/24 Refills: 0 Status: ACTIVE No remote medications found. PENDING OUTPATIENT MEDICATIONS (LOCAL/REMOTE): ACCU-CHEK GUIDE (GLUCOSE) TEST STRIP Directions: USE 1 STRIP TO TEST BLOOD SUGAR DIRECTED Quantity: 50 Special: USE 1 STRIP FSBS UD Status: PENDING ALCOHOL PREP PAD PAD Directions: USE PAD ALCOHOL PREP PAD DIRECTED NEEDED Quantity: 200 Special: USE PAD ALCOHOL PREP PAD UD PRN Status: PENDING LANCET,SOFTCLIX Directions: USE LANCET AFFECTED AREA DIRECTED Quantity: 100 Special: USE LANCET TOP UD Status: PENDING LANCET,SOFTCLIX DEVICE Directions: USE DEVICE DIRECTED Quantity: 1 Special: USE DEVICE DIRECTED Status: PENDING No remote medications found. ACTIVE NONVA MEDICATIONS (LOCAL): No local medications found. OUTPATIENT MEDICATIONS (LOCAL)WITHIN 90 DAYS: METHOCARBAMOL 500MG TAB Directions: TAKE ONE TABLET BY MOUTH EVERY 8 HOURS NEEDED FOR MUSCLE SPASM Quantity: 30 for 10 days Issued: 12/22/23 Filled: 12/23/23 Expires: 01/21/24 Refills: 0 Status: DISCONTINUED OUTPATIENT MEDICATIONS (LOCAL) WITHIN 90 DAYS: No local medications found. CLINIC MEDICATIONS (LOCAL): No local medications found. /debra/ KATT GOTTI PRIMARY CARE EMBLEM FUSER TENDER Signed: 04/13/2024 13:10 KATT GOTTI [facility] Apr 13, 2024 11:30 AM PRIMARY CARE NURSING NOTE: LOCAL TITLE: Pc Health Tech/linux system admin Note STANDARD TITLE: PRIMARY CARE NURSING NOTE DATE OF NOTE: APR 13, 2024@11:30 ENTRY DATE: APR 13, 2024@11:30:07 AUTHOR: HERMAN KWAN EXP COSIGNER: URGENCY: STATUS: COMPLETED Pc Health Tech/linux system admin Note Has ADDENDA The patient was given a list of his current medications, instructed to review and discuss any changes or problems with their provider. Patient advised to carry a list of current medications and any allergies with them in the event of emergency situations. Yes - [place]/Caregiver verbalized understanding of topics discussed and education provided Provider notified of elevated B/P >/= 140/90. Not Applicable Influenza Immunization: Deferral / Refusal The patient declines to receive the recommended dose of seasonal influenza vaccine. Immunization: INFLUENZA, UNSPECIFIED FORMULATION Refusal Reason: PATIENT DECISION Patient refuses all immunization(s) in the FLU group Date Documented: 04/13/24 11:31 Avg Risk Colorectal Cancer Screen: AVERAGE RISK colorectal cancer screening is due based on information available to this clinical reminder COVID-19 Immunization: Moderna Monovalent (Spikevax) Administered: COVID-19 (MODERNA), MRNA, LNP-S, PF, 50 MCG/0.5 ML (AGES 12+ YEARS) Date Administered: Apr 13, 2024 11:30 Series: Booster Manager Nursing: MOD[employer] Lot: [id number] Exp Date: Dec 05, [address] [facility]: [phone] Admin Route/Site: INTRAMUSCULAR/LEFT Hip Dosage: 0.5mL Vaccine Information Statement(s): COVID-19 MRNA VACCINE (12+ YRS) VACCINE VIS Apr 23, 2023 (JAPANESE) Order By: Policy Administered By: Herman Kwan Vaccine administered without complications. Learning Readiness Assessment: Preferred language for discussing health care Cambodian REASSESSMENT LEARNING BARRIERS Visual Barrier Comment: Glasses READING LIMITATIONS No reading limitations PREFERRED METHODS FOR LEARNING Written/Printed Material Verbal Demonstration (Audio/Visual) INTERESTED IN LEARNING (MOTIVATED) No PERSON BEING EDUCATED TODAY Patient Education was provided on the following topics RESPONSE Herpes Zoster (Shingles) Vaccine: The patient declines to receive the recommended dose of zoster (shingles) vaccine. Immunization: ZOSTER RECOMBINANT Refusal Reason: PATIENT DECISION Patient refuses all immunization(s) in the ZOSTER group Date Documented: 04/13/24 11:35 PAVE Foot Check: Patient indicates foot exam (including monofilament test for sensation) was performed in the past year in the private sector: Date: March 01, 2024 Result: Cash Control Specialist said feet in good shape Alcohol Use Screen (AUDIT-C): Alcohol Screen: SCREEN FOR ALCOHOL (AUDIT-C) An alcohol screening test (AUDIT-C) was negative (score=2). 1. How often did you have a drink containing alcohol in the past year? Consider a drink to be a 12 ounce can or bottle of regular beer, 8 ounces of malt liquor, a 5 ounce glass of table wine, or a 1.5 ounce shot of liquor (like scotch, gin, or vodka). Two to four times a month 2. How many drinks containing alcohol did you have on a typical day when you were drinking in the past year? One or two drinks 3. How often did you have six or more drinks on one occasion in the past year? Never Depression Screening: Perform PHQ-2 A PHQ-2 screen was performed. The score was 0 which is a negative screen for depression. Over the past two weeks, how often have you been bothered by the following problems? 1. Little interest or pleasure in doing things Not at all 2. Feeling down, depressed, or hopeless Not at all Suicide Screen: C-SSRS Screening [place] Suicide Severity Rating Scale (C-SSRS) screener 1. Over the past month, have you wished you were or wished you could go to sleep and not wake up? No 2. Over the past month, have you had any actual thoughts of killing yourself? No 3. Over the past month, have you been thinking about how you might do this? Response not required due to responses to other questions. 4. Over the past month, have you had these thoughts and had some intention of acting on them? Response not required due to responses to other questions. 5. Over the past month, have you started to work out or worked out the details of how to kill yourself? Response not required due to responses to other questions. 6. If yes, at any time in the past month did you intend to carry out this plan? Response not required due to responses to other questions. 7. In your lifetime, have you ever done anything, started to do anything, or prepared to do anything to end your life (for example, collected pills, obtained a gun, gave away valuables, went to the roof but didn't jump)? No 8. If YES, was this within the past 3 months? Response not required due to responses to other questions. Sexual Orientation: The patient thinks of their sexual orientation as: Straight or Heterosexual Tobacco Use Screening: The patient is a former tobacco user. The patient quit fifteen or more years ago. /arnie KWAN [facility] STAFF ABSORPTION PLANT OPERATOR HELPER Signed: 04/13/2024 11:49 04/13/2024 ADDENDUM STATUS: COMPLETED Mailed occult fit kit. /arnie KWAN [facility] STAFF ABSORPTION PLANT OPERATOR HELPER Signed: 04/13/2024 13:35 HERMAN KWAN [facility] Apr 13, 2024 11:11 AM PRIMARY CARE NOTE: LOCAL TITLE: PC PROGRESS NOTE STANDARD TITLE: PRIMARY CARE NOTE DATE OF NOTE: APR 13, 2024@11:11 ENTRY DATE: APR 13, 2024@11:11:32 AUTHOR: KATT GOTTI EXP COSIGNER: URGENCY: STATUS: COMPLETED PC PROGRESS NOTE Has ADDENDA ID: 68 year old MALE Chief Complaint: Ongoing management of active/chronic medical problems HPI: Connie Mary is here today for annual appt. DM2: Has been out of testing supplies. Has not tested this year. Endorses symptoms of hypoglycemia. Denies polyuria, polydipsia, and polyphagia. Monitors diet, occasionally consumes too many starches. Last saw nonVA optometry a couple months ago for dilated exam says his eyes are OK. Tried metformin, had worsening diarrhea and so this was stopped. Right Knee Pain: Small meniscal tear about 20 yrs ago. A fall 2 yrs ago (in June) hyperextended while catching self. Want to avoid surgery. Last time this was checked by Ortho said possible arthroscopic debridement. Denies locking, popping. Endorses buckling, giving way last 3 months. 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 Ankylosing spondylitis 2. Hypercholesterolemia (SCT 52395597) declines statins 3. Chronic Kidney Disease Stage 3 (SCT 561918315) 4. Hypercalcemia (SCT 40088986) 5. Obstructive sleep apnea syndrome 6. History of malignant neoplasm of esophagus 7. Chronic kidney disease stage 3 due to type 2 diabetes mellitus 8. History of calculus of kidney 9. Benign hypertensive renal disease 10. Obesity (SNOMED CT 759168669) 11. Gastroesophageal reflux disease (SNOMED CT 398593433) 12. Gout (SNOMED CT 59557896) -REVIEW OF SYSTEMS- ROS: As above, otherwise: - General: NO fevers / chills / night sweats / weight loses/gains - Eyes: NO changes or difficulty with vision - C/V: NO chest pain / palpitations - Resp: YES h/o GERD aspiration; NO cough / sputum / SOB or MURRY - GI: YES dysphagia / GERD / vomiting / diarrhea; NO constipation / black or bloody stools - : YES weak stream / nocturia x1 / frequency; NO dysuria / hematuria / urgency - INTEG: YES h/o SCC; NO rashes / lesions / ecchymosis / pruritis / easy bruising - Neuro: YES gait changes r/t occ right foot tingling and h/o right ankle injury; NO headache / weakness - PSYCH: YES irritability; NO depression / anxiety / mood changes / suicidal thinking Allergies: PENICILLIN Medications: Active and Recently Outpatient Medications (including Supplies): Active Outpatient Medications Status 1) ALLOPURINOL 300MG TAB TAKE ONE TABLET BY MOUTH DAILY ACTIVE FOR GOUT 2) CHLORTHALIDONE 25MG TAB TAKE ONE-HALF TABLET BY MOUTH ACTIVE DAILY FOR BLOOD PRESSURE 3) LISINOPRIL 40MG TAB TAKE ONE TABLET BY MOUTH DAILY ACTIVE FOR HIGH BLOOD PRESSURE 4) PANTOPRAZOLE NA 40MG EC TAB TAKE ONE TABLET BY MOUTH ACTIVE TWICE A DAY 30 MINUTES BEFORE A MEAL FOR STOMACH -TAKE ON AN EMPTY STOMACH. 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 Smoked ~ 10 years 1/2 ppd Recreational drugs: denies HEALTH MAINTENANCE: - LDL: last 141 05/2023, ordered by PACT PCP for today - A1c: last 6.7 05/2023, ordered by PACT PCP for today - Immunizations: per PACT ABSORPTION PLANT OPERATOR HELPER today had 2 vaccines - CRC: FIT ordered - PSA: not recommended d/t age VITALS: Temp: 97.7 F [36.5 C] (05/18/2023 11:40) Pulse: 57 (05/18/2023 11:40) Resp: 14 (06/17/2022 14:03) BP: 149/79 (05/18/2023 11:40) Height: 73 in [185.4 cm] (05/18/2023 11:40) Weight: 278.6 lb [126.37 kg] (05/18/2023 11:40) Pain: 5 (05/18/2023 11:40) VITALS: Temp: 97.9 F [36.6 C] (04/13/2024 11:41) Pulse: 65 (04/13/2024 11:41) Resp: 14 (06/17/2022 14:03) BP: 108/71 (04/13/2024 11:41) Height: 73 in [185.4 cm] (04/13/2024 11:41) Weight: 264.4 lb [119.93 kg] (04/13/2024 11:41) Pain: 3 (04/13/2024 11:41) -PHYSICAL EXAM- GENERAL: A&OX3, NAD HEENT: Head: normocephalic, midline. Sclera anicteric. Mild RED CLIFF RESP: CTA throughout. Unlabored. No wheezing or adventitious breath sounds. CV: S1S2 regular. No murmur, rubs or gallops. Radial pulses 2+ bilat. ABD: Rounded, centralized adiposity. BT normoactive. Abd soft, nontender. INTEG: Grossly pink/warm/dry Extremities: BLE lower leg varicose veins. No ankle edema @ this time. MSK: Gross strength 5/5. Gait wide, right knee mildly erythemic and lateral joint margin swelling and ttp PSYCH: Pleasant. Cooperative. Appropriately dressed/groomed. ASSESSMENT/PLAN: 1. Type 2 diabetes mellitus with unspecified complications: -A1c, CMP, microalbumin ordered -continue low carbohydrate nutrition pls -renew diabetic testing supplies ordered today -h/o metformin intolerance w/ bad diarrhea added to list -continue nonVA optometry -vaccinations done in clinic by PACT ABSORPTION PLANT OPERATOR HELPER today 2. Hypercholesterolemia: -lipids ordered -declines statins d/t risk of dementia -pls continue to consume lean proteins, plant-based protein MAY be the healthiest choices AND lots of green vegetables 3. Chronic Kidney Disease Stage 3: -CMP, microalbumin today -BP goal under 130/80 met 4. Hypercalcemia: -CMP, vitD ordered 5. Obstructive sleep apnea syndrome: -not using CPAP, last home sleep study done by an employer physical -consider [place] sleep med prn 6. History of malignant neoplasm of esophagus: -pls report pain or increased dysphagia promptly to PACT -CXR ?aspiration last January 2024 7. Chronic kidney disease stage 3 due to type 2 diabetes mellitus: -BP goal under 130/80 met -MUST continue PPI r/t #11 and #6 -continue limitation of NSAIDs like aspirin -see #1 and #9 8. History of calculus of kidney -denies flares 9. Benign hypertensive renal disease: -BP goal 130/80 -CMP, microalbumin today -continue lisinopril 40mg PO q day -continue chlorthalidone 12.5mg PO q AM 10. Obesity: -will try [place] Keemotion Program, consult placed -here is the website https://FarmLink.[place].gov/ 11. Gastroesophageal reflux disease: -continue pantoprazole 40mg PO BID -CXR ?aspiration last January 2024 -consider GI referral 12. Gout: -denies flares -uric acid level today -continue allopurinol 300mg PO q day 13. Right Knee Pain: -likely OA, highly suspect chronic tendinopathy as well -uric acid today r/o gout flare -XR ordered -PT eval/treat -consider hinged knee brace, defer today -weight loss will help (see #10) 14. Localized Swelling, Mass and Lump, right upper Limb (Right Thumb PIP Skin Papule): -possible foreign body -trial warm (NOT hot), soapy soaks TID and see if this helps -consider hand surgeon/derm referral, declines this today 15. Varicose Veins: -continue compression socks -prosthetics request for Flexitouch today -this will hopefully help knee pain/swelling as well The outpatient Essential Medication list for review (EMLR) was reviewed with the patient/caregiver. Discrepancies have been corrected. Management plan reviewed with Pt, who agrees with the plan. Patient/caregiver voiced an understanding of the topics covered/discussed in today's visit and denies further questions or concerns @ this time. Follow-up: RTC annual due 04/2025, sooner prn TIME SPENT IN THE CLINICAL CARE OF THIS : 40 Avg Risk Colorectal Cancer Screen: AVERAGE RISK colorectal cancer screening is due based on information available to this clinical reminder FOBT/FIT (Fecal Immunochemical Testing) has been ordered. See order tab for details. Hepatitis C Testing: Patient has given verbal consent for HCV antibody testing. An HCV lab test has been ordered - see orders tab. Assess Statin Use - Lipids (CVD/DM): The patient declines to be treated with a statin. Eye Care At-Risk Screen : Patient identified to be at risk for the following eye condition(s): DIABETIC RETINOPATHY: Diabetes Diagnosis Information: Encounter Diagnosis: 04/13/2024@11:30 E11.8 (ICD-10-CM) Type 2 Diabetes Mellitus with unspecified Complications rank: PRIMARY Prov. Narr. - Type 2 diabetes mellitus (SNOMED CT [id number]) MACULAR DEGENERATION: Macular Degeneration Risk Factors Information: Reminder Term: VA-AMD RISK FACTORS Encounter Diagnosis: 05/18/2023@11:30 Z68.36 (ICD-10-CM) Body mass index [BMI] 36.0-36.9, adult rank: SECONDARY Prov. Narr. - Body mass index [BMI] 36.0-36.9, adult Action: No Referral Ordered: Eye exam completed elsewhere by an Manager It Security or Shank Stitcher Diabetic retinal exam result: Results Unknown (recommended that patient proceed with eye care request or obtain outside retinal exam result within 90 days) Date: December, ? Exact date is unknown Location: [place] [facility] Nephropathy Screen (Prov) (V9): eGFR and uACR ordered previously by PACT PCP /debra/ KATT GOTTI PRIMARY CARE EMBLEM FUSER TENDER Signed: 04/13/2024 13:09 04/13/2024 ADDENDUM STATUS: COMPLETED PACT ABSORPTION PLANT OPERATOR HELPER: Pls mail out FIT. Thank you /debra/ KATT GOTTI PRIMARY CARE EMBLEM FUSER TENDER Signed: 04/13/2024 13:13 Receipt Acknowledged By: 04/13/2024 13:35 /es/ HERMAN KWAN ABSORPTION PLANT OPERATOR HELPER STAFF ABSORPTION PLANT OPERATOR HELPER 04/13/2024 ADDENDUM STATUS: COMPLETED PACT MSA: Can you pls request the last diabetic eye exam from co-managed medic technician Dr Anderson Cao, in [place] [facility]? Thank you. /es/ KATT GOTTI PRIMARY CARE EMBLEM FUSER TENDER Signed: 04/13/2024 13:39 Receipt Acknowledged By: 04/14/2024 14:45 /es/ MIGUEL ANGEL GUY Advanced Senior Sql Dba 04/14/2024 ADDENDUM STATUS: COMPLETED Sent fax to receive records of last diabetic eye exam. /es/ MIGUEL ANGEL GUY Advanced Senior Sql Dba Signed: 04/14/2024 14:45 05/06/2024 ADDENDUM STATUS: COMPLETED please f/u with pt about his uncontrolled lipids. High cholesterol, DM and untreated ALLISON all contribute significantly to dementia risk, much more than risk of statin medications and reason why those are recommended as benefits outweigh the risks. Would strongly encourage seeing resaw operator and getting on medication like low dose crestor 10mg daily for his uncontrolled cardiovascular risks. /es/ Jose Rausch MD Primary Care Attending Signed: 05/06/2024 10:25 Receipt Acknowledged By: * AWAITING SIGNATURE * SHELLIE PRITCHARD,KATT MENDEZ [facility]
--- OUTSIDE RECORDS SUMMARY | 2024-10-18 15:00 | XMS_ITS | Encounter Summary ---
Author Name [facility] [place] [facility] [place] Address [address] [place] [address] Care Team Providers Care Stone Lathe Operator Name Role Phone ESTUARDOPATTIE Primary Care Provider Unavailabl e Insurance Providers: [...] PART B November 03, 2013 PART B [id number] PV48 FLAQUITADESIRAE MCCLOUD PATIENT MEDICARE (WNR) MEDICARE ([place]) PART A November 03, 2013 PART A [id number] PV48 DESIRAE MARY PATIENT Selected Encounter This section includes the information on record at [place] for the Encounter. Date/Time Encounter Type Encounter Description Reason Provider Source Aug 23, 2024 10:35 AM PH1 ASSMT&MGMT NQHP 5-10 TELEPHONE PRIMARY CARE ICD-10-CM Z87.442 Personal history of urinary calculi JUN GIORDANO IHE Encounter Template Text not used by VA Assessments - Encounter Diagnoses This section includes the primary and secondary diagnoses documented for the Encounter. Date/Time Primary/Secondary Diagnosis Diagnosis Name Provider Source Aug 23, 2024 10:35 AM PRIMARY Personal history of urinary calculi JUN GIORDANO [facility] Lab Results: +/- 30 days of the encounter This section includes the Chemistry and Hematology Lab Results on record with [place] for the patient. Radiology Reports and Pathology Reports are provided separately, in subsequent sections. Lab Results This section contains the Chemistry/Hematology Results that were resulted 30 days before or 30 daysafter the date of the Encounter. Date/Time Source Result Type Result - Unit Interpretation Reference Range Specimen Type Comment Aug 10, 2024 02:12 PM [facility] EGFR + CREAT DATE SENSITIVE PLASMA Specime n Type: PLASMA Comment: Estimated Glomerular Filtration Rate (eGFR) calculated using the 2020 Chronic Kidney Disease-Epidemiol ogy (CKD-EPI) Collaboration creatinine equation; units of measure [...] or structural abnormalities does not represent CKD. === eGFR CKD Interpretation (mL/min/1.73 m2) stage >=90 G1 Normal 60-89 G2 Mild decrease 45-59 G3A Mild to moderate decrease 30-44 G3B Moderate to severe decrease 15-29 G4 Severe decrease <15 G5 Kidney failure Ordering Provider: PATTIE MARTE Report Released Date/Time: Aug 02, 2024 11:25 PM Reporting Lab: [address] [address] Performing Lab: [address] [address] CREATININE 1.28 mg/dL H 0.72-1.25 eGFR (CKD-EPI) 60 Social History: Smoking Status (Most current) and Tobacco Use (All prior to encounter date) This section includes the most current, and the historical, smoking and tobacco- related health factors from the [place] facility where the Encounter took place. Current Smoking Status This section includes the most current smoking, or tobacco-related health factor, from the [place] facility where the Encounter took place. Date/Time Current Smoking Status Comment Saima faith Apr 13, 2024 11:30 AM VA-TOBACCO FORMER USER [facility] Tobacco Use History This section includes a history of the smoking, or tobacco-related health factors, that were collected on or before the date of the Encounter. The data comes from the [place] facility where the Encounter took place. Date/Time Smoking Status/Tobacco Use Comment Leigh Ann smith Apr 13, 2024 11:30 AM VA-TOBACCO QUIT 15 YRS OR MORE [facility] May 18, 2023 11:30 AM VA-TOBACCO FORMER USER [facility] May 18, 2023 11:30 AM VA-TOBACCO QUIT 15 YRS OR MORE [facility] Jul 18, 2021 02:30 PM VA-TOBACCO FORMER USER [facility] Jul 18, 2021 02:30 PM VA-TOBACCO QUIT 15 YRS OR MORE [facility] Sep 09, 2013 12:30 PM V9 LIFETIME NON-USER OF TOBACCO [facility] Radiology Reports: +/- 30 days of the [...] the Encounter. The data comes from all [place] treatment facilities. Date/Time Radiology Report Provider Source Aug 10, 2024 02:[address] ABD/PELVIS UROG CARMEN: DESIRAE MARY [facility] [id number] -1955 M Exm Date: AUG 10, 2024@14:10 Req Phys: PATTIE MARTE Pat Loc: JULIO PACT LEOS 16-1 (Req'g Loc) Img Loc: CT SCAN Service: [place] [address] (Case [id number] COMPLETE)CT ABD/PELVIS WITHOUT FOLLOWED BY(CT Detailed) CPT:38279 Contrast Media : Non-ionic Iodinated Reason for Study: hx kidney stones, please reeval for urology referral. Pharmaceutical: IODIXANOL 320mgI/ml INJ 500ML BOTTLE, 80ml Clinical History: Report Status: Verified Date Reported: AUG 12, 2024 Date Verified: AUG 12, 2024 Bus Info Consultant E-Sig: Report: CT ABD/PELVIS WITHOUT FOLLOWED BY WITH CONTRAST HISTORY: hx kidney stones, please reeval for urology referral. COMPARISON: None TECHNIQUE: CT of the abdomen and pelvis with multiplanar reformats was performed at the local [place] facility. 566 images were received by the [place] National Teleradiology Program (NTP) for interpretation. RADIATION DOSE (mGy*cm): 1162 IV CONTRAST: , Volume (mL): None FINDINGS: The kidneys are normal in size. Nonobstructive renal stones are seen bilaterally measuring up to 1.2 cm at the lower pole the right kidney and midpole the left kidney. No mass is seen. The ureters are within without ureteral stone. The urinary bladder is normal. After contrast the kidneys enhance normally. Cortical cyst on the left. Cortical thickness is normal The prostate is slightly enlarged. There is a small infiltrate of left lung base. There is marked dilatation of the esophagus with a large hiatal hernia. There is suggestion of previous surgery but there is no detail given. There is slight fatty infiltration of the liver without focal mass. The bile ducts, pancreas, spleen and adrenal glands are normal. Retroperitoneum is normal. The IVC is to the left of the aorta. Aorta is calcified without aneurysm. Bowel is nonobstructive. In the pelvis there is no mass, fluid collection, or lymphadenopathy. Bones: Multilevel spondylosis without osteolytic or blastic lesion. DISH. Impression: 1. Nonobstructive nephrolithiasis bilaterally. 2. Mild prostate hypertrophy. Large hiatal hernia with suggestion of previous surgery. A small infiltrate of the left lower lobe. READING PHYSICIAN: Gordo Shannon MD -[id number] 08/12/2024 12:00 [facility] Teleradiology Program [phone] (For Medical Practitioner Use Only) Attention Patients / Veterans: If you have questions or concerns about these test results, please contact your ordering provider or primary care team. Primary Diagnostic Code: NO ALERT REQUIRED Primary Interpreting Staff: OUTSIDE SERVICE RADIOLOGY, Staff Physician / RADIOLOGY,OUTSIDE SERVICE [facility] Encounter Notes: All associated encounter notes This section contains the clinical notes associated to the Encounter. Date/Time Encounter Note(s) Provider Source Aug 23, 2024 10:35 AM PRIMARY CARE E & M NOTE: LOCAL TITLE: PC CARE MANAGEMENT STANDARD TITLE: PRIMARY CARE E & M NOTE DATE OF NOTE: AUG 23, 2024@10:35 ENTRY DATE: AUG 23, 2024@10:35:50 AUTHOR: JUN GIORDANO EXP COSIGNER: URGENCY: STATUS: COMPLETED calling to get results from last CT scan. Please call to discuss. Also inquiring about renewed refill for Pantoprazole. Transferred to Pharmacy Returned call. Advised vet letter mailed with results Stable kidney function and nonobstructive kidney stones present. No current evidence to suggest need for urology referral. Vet advised and is understanding of plan time spent: 9 minutes Yes - /Caregiver verbalized understanding of topics discussed and education provided /debra/ JUN LIM, RN PC FUR IRONER Signed: 08/23/2024 10:37 JUN GIORDANO [facility]
--- OUTSIDE RECORDS SUMMARY | 2024-10-18 15:00 | XMS_ITS | Encounter Summary ---
Author Name [facility] [place] Organization [facility] [place] Address [address] [place] [address] Care Team Providers Care Retail Wireless Sales Consultant Name Role Phone PATTIE MARTE Primary Care Provider Unavailabl e Insurance Providers: [...] PART A November 03, 2013 PART A [id number] PV48 [phone] FLAQUITADESIRAE MCCLOUD PATIENT MEDICARE (WNR) MEDICARE (M) PART B November 03, 2013 PART B [id number] PV48 DESIRAE MARY PATIENT Selected Encounter This section includes the information on record at [place] for the Encounter. Date/Time Encounter Type Encounter Description Reason Pro vider Source Aug 23, 2024 10:19 AM Outpatient Encounter ADMIN PAT ACTIVTIES (MASNONCT) IHE Encounter Template Text not used by VA Lab Results: +/- 30 days of the encounter This section includes the Chemistry and Hematology Lab Results on record with [place] for the patient. Radiology Reports and Pathology Reports are provided separately, in subsequent sections. Lab Results This section contains the Chemistry/Hematology Results that were resulted 30 days before or 30 daysafter the date of the Encounter. Date/Time Source Result Type Result - Unit Interpretation Reference Range Specimen Type Comment Aug 10, 2024 02:12 PM [facility] EGFR + CREAT DATE SENSITIVE [...] Aug 02, 2024 11:25 PM Reporting Lab: [facility] [address] [address] Performing [facility]: [facility] [address] [address] CREATININE 1.28 mg/dL H 0.72-1.25 eGFR (CKD-EPI) 60 Radiology Reports: +/- 30 days of the [...] the Encounter. The data comes from all [place] treatment facilities. Date/Time Radiology Report Provider Source Aug 10, 2024 02:[address] ABD/PELVIS UROG CARMEN: EDSIRAE MARY [facility] [id number] -1955 M Exm Date: AUG 10, 2024@14:10 Req Phys: PATTIE MARTE Pat Loc: JULIO PACT LEOS 16-1 (Req'g Loc) Img Loc: CT SCAN Service: Unknown [place] [id number] (Case [id number] COMPLETE)CT ABD/PELVIS WITHOUT FOLLOWED BY(CT Detailed) CPT:12081 Contrast Media : Non-ionic Iodinated Reason for Study: hx kidney stones, please reeval for urology referral. Pharmaceutical: IODIXANOL 320mgI/ml INJ 500ML BOTTLE, 80ml Clinical History: Report Status: Verified Date Reported: AUG 12, 2024 Date Verified: AUG 12, 2024 Die Maker Bench Stamping E-Sig: Report: CT ABD/PELVIS WITHOUT FOLLOWED BY WITH CONTRAST HISTORY: hx kidney stones, please reeval for urology referral. COMPARISON: None TECHNIQUE: CT of the abdomen and pelvis with multiplanar reformats was performed at the local [place] facility. 566 images were received by the [place] National Teleradiology Program (NTP) for interpretation. RADIATION [...] lower lobe. READING PHYSICIAN: Gordo Shannon MD -[id number] 08/12/2024 12:00 [facility] National Teleradiology Program [phone] (For Medical Practitioner Use Only) Attention Patients / Veterans: If you have questions or concerns about these test results, please contact your ordering provider or primary care team. Primary Diagnostic Code: NO ALERT REQUIRED Primary Interpreting Staff: OUTSIDE SERVICE RADIOLOGY, Staff Physician / RADIOLOGY,OUTSIDE SERVICE [facility] Encounter Notes: All associated encounter notes This section contains the clinical notes associated to the Encounter. Date/Time Encounter Note(s) Provider Source Aug 23, 2024 10:19 AM ADMINISTRATIVE NOT E: LOCAL TITLE: CCC: SCHEDULING ADMINISTRATION STANDARD TITLE: ADMINISTRATIVE NOTE DATE OF NOTE: AUG 23, 2024@10:19:39 ENTRY DATE: AUG 23, 2024@10:19:40 AUTHOR: YASSINE MUNROE EXP COSIGNER: URGENCY: STATUS: COMPLETED Patient Demographics Patient Name: DESIRAE MARY Patient Primary Phone: [phone] Patient Primary [address]: [address] [place] [address] Patient : 1955 Patient Age: 68 Caller/Recipient Relation to Patient: Self Caller Name: DESIRAE MARY Administrative Administrative Note Reason: Returned Call Administrative Note Comments: Pt returning phone call IMPORTANT: This note was created by [facility] Clinical Contact Center staff. Please do not alert the staff member by adding them as a signer for future communications. Alerts are not monitored by this user. /debra/ YASSINE RAHMAN Advanced medical authorization specialist Signed: 08/23/2024 10:19 Receipt Acknowledged By: 08/23/2024 10:34 /es/ JUN LIM, RN PC LITHOGRAPHIC PLATE MAKER YASSINE MUNROE-[facility]
--- OUTSIDE RECORDS SUMMARY | 2024-10-18 15:00 | XMS_ITS ---
Author Organization [facility] Address [address] [place] [address] Phone Care Team Providers Care Emergency Management Program Specialist Name Role Phone Hans VERAS, Kash Johnson Unavailable [phone] SPRING TAPIA MD Primary Care Provider [phone] Problems Includes: Active, inactive, and resolved Problems All Visits Onset Date Resolved Date Provider Condition S tatus Joint Pain, Localized in the Right Shoulder 08/11/2022 Rolando Rodriguez MD Active Last Documented On 3 8:49AM ; [facility], [facility] Plan of Treatment Instructions to patient Lose weight Last Documented On 3 8:50AM ; [facility] Assessments Includes: Assessments for all patient encounters No Assessments Recorded Instructions Includes: Instructions for all patient encounters Instructions to patient Lose weight Last Documented On 3 8:50AM ; [facility], [facility] Medical Equipment - Implanted Devices Includes: Current and historical Devices No Medical Equipment Recorded Medications Includes: Current and historical Medications Current Medications (continue as prescribed) Lisinopril 10 MG Oral Tablet 08/11/2022 Provider: Diagnosis: Last Documented On 3 11:01AM By Josefina Kingston ; [facility], [facility] Allopurinol 100 MG Oral Tablet 08/11/2022 Provider: Diagnosis: Last Documented On 3 11:01AM By Josefina Kingston ; [facility] Famotidine 10 MG Oral Tablet 08/11/2022 Provider: Diagnosis: Last Documented On 3 11:01AM By Josefina Kingston ; [facility] Pantoprazole Sodium 20 MG Oral Tablet Delayed Release 08/11/2022 Provider: Diagnosis: Last Documented On 3 11:02AM By Josefina Kingston ; [facility], [facility] Medications Administered Includes: Administered Medications in patient's chart No Administered Medications Recorded Results Includes: Results from 10/19/2023 through 10/18/2024 No Results Recorded For Specified Dates History of Present Illness History of Present Illness not supported for this document type No History of Present Illness Recorded Social History Description Last Updated Caffeine use 08/11/2022 Last Documented On 3 9:44AM ; [facility], [facility] Recent change in diet Keto diet 08/11/19 Last Documented On 3 9:44AM ; [facility], [facility] Tobacco non-user 08/11/2022 Last Documented On 3 9:44AM ; [facility], [facility] Not a current smoker. 08/11/2022 Last Documented On 3 9:44AM ; [facility], [facility] Not exercising regularly 08/11/2022 Last Documented On 3 9:44AM ; [facility], [facility] Not using alcohol 08/11/2022 Last Documented On 3 9:44AM ; [facility], [facility] Not using drugs 08/11/2022 Last Documented On 3 9:44AM ; [facility], [facility] Smoking Status Unknown Procedures and Surgical History Surgical History Last Updated History of History of Gallbladder 2022 Last Documented On 3 9:44AM ; [facility], [facility] History of Previous Fractures 08/11/2022 Last Documented On 3 9:44AM ; [facility], [facility] Medical History Includes: Medical History in patient's chart Description Last Updated History of asthma 08/11/2022 Last Documented On 3 9:44AM ; [facility], [facility] History of diabetes mellitus 08/11/2022 Last Documented On 3 9:44AM ; [facility], [facility] History of Fractures 08/11/2022 Last Documented On 3 9:44AM ; [facility], [facility] History of Heartburn / Acid Reflux 08/11 Last Documented On 3 9:44AM ; [facility] History of History of Cancer 08/11/2022 Last Documented On 3 9:44AM ; [facility] History of Hypertension 08/11/2022 Last Documented On 3 9:44AM ; [facility] History of Kidney Disease 08/11/2022 Last Documented On 3 9:44AM ; [facility] History of Liver Disease 08/11/2022 Last Documented On 3 9:44AM ; [facility] History of Sleep Apnea 08/11/2022 Last Documented On 3 9:44AM ; [facility] Past Surgical History: esoph arely removed (cancer) / hernia repair / cataract surgery / kidney stone extraction (several times) 08/11/2022 Last Documented On 3 9:44AM ; [facility] Use of CPAP 08/11/2022 Last Documented On 3 9:44AM ; [facility] Family History Includes: Family History in patient's chart Description Last Updated Diabetes mellitus 08/11/2022 Last Documented On 3 9:44AM ; [facility] Family history of cancer 08/11/2022 Last Documented On 3 9:44AM ; [facility] Family history of heart disease 08/11/19 23 Last Documented On 3 9:44AM ; [facility] Family history of osteoporosis 3 Last Documented On 3 9:44AM ; [facility] Family history of rheumatoid arthritis 0 08/11/2022 Last Documented On 3 9:44AM ; [facility] Family history of systemic hypertension 08/11/2022 Last Documented On 3 9:44AM ; [facility] Stroke / Seizures 08/11/2022 Last Documented On 3 9:44AM ; [facility] Review of Systems Review of Systems not supported for this document type No Review of Systems Recorded Mental Status Description No anxiety Functional Status No Functional Status Recorded Physical Exam Physical Exam not supported for this document type No Physical Exam Recorded Allergies Includes: Active, inactive, and resolved Allergies Substance Type Reaction Onset Date Resolved Date Statu s Penicillin G Benzathine Allergy Skin Deacon hes / Eruption of skin 08/11/2022 Active Last Documented On 3 11:02AM ; [facility] Insurance Includes: Active Insurance Policies Plan Name Member ID Group # Subscriber Relationship Effect ankur Dates 1 - [employer] [id number] Brian Zheng Self 3 - Unknown Clinical Notes Includes: Signed Clinical Notes starting from 06/19/2022 No Clinical Notes Recorded
--- OUTSIDE RECORDS SUMMARY | 2024-10-18 15:00 | XMS_ITS | Encounter Summary ---
Author Name [facility] [facility] [place] [facility] [place] Address [address] [place] [address] Care Team Providers Care Inspector Soldering Name Role Phone JOSE RAUSCH Primary Care [...] PART A November 03, 2013 PART A [id number] PV48 [phone] FLAQUITADESIRAE MCCLOUD PATIENT MEDICARE (WNR) MEDICARE (M) PART B November 03, 2013 PART B [id number] PV48 DESIRAE MARY PATIENT Selected Encounter This section includes the information on record at [place] for the Encounter. Date/Time Encounter Type Encounter Description Reason Pro vider Source Aug 19, 2024 03:10 PM Outpatient Encounter ADMIN PAT ACTIVTIES (MASNONCT) IHE Encounter Template Text not used by [facility] Lab Results: +/- 30 days of the encounter This section includes the Chemistry and Hematology Lab Results on record with [place] for the patient. Radiology Reports and Pathology Reports are provided separately, in subsequent sections. Lab Results This section contains the Chemistry/Hematology Results that were resulted 30 days before or 30 daysafter the date of the Encounter. Date/Time Source Result Type Result - Unit Interpretation Reference Range Specimen Type Comment Aug 10, 2024 02:12 PM [facility] EGFR + CREAT DATE SENSITIVE PLASMA Specime [...] Ordering Provider: JOSE RAUSCH Report Released Date/Time: Aug 02, 2024 11:25 PM Reporting Lab: [facility] [address] [address] Performing Lab: [facility] [address] [address] CREATININE 1.28 mg/dL H 0.72-1.25 eGFR (CKD-EPI) 60 Social History: Smoking Status (Most current) and Tobacco Use (All prior to encounter date) This section includes the most current, and the historical, smoking and tobacco- related health factors from the [place] facility where the Encounter took place. Current Smoking Status This section includes the most current smoking, or tobacco-related health factor, from the [place] facility where the Encounter took place. Date/Time Current Smoking Status Comment Facil ity Apr 13, 2024 11:30 AM VA-TOBACCO FORMER USER [facility] Tobacco Use History This section includes a history of the smoking, or tobacco-related health factors, that were collected on or before the date of the Encounter. The data comes from the [place] facility where the Encounter took place. Date/Time Smoking Status/Tobacco Use Comment F acility Apr 13, 2024 11:30 AM VA-TOBACCO QUIT 15 YRS OR MORE [facility] May 18, 2023 11:30 AM VA-TOBACCO FORMER USER [facility] May 18, 2023 11:30 AM VA-TOBACCO QUIT 15 YRS OR MORE [facility] Jul 18, 2021 02:30 PM VA-TOBACCO FORMER USER [facility] Jul 18, 2021 02:30 PM VA-TOBACCO QUIT 15 YRS OR MORE [facility] Sep 09, 2013 12:30 PM V9 LIFETIME NON-USER OF TOBACCO [facility] Radiology Reports: +/- 30 days of [...] the Encounter. The data comes from all [place] treatment facilities. Date/Time Radiology Report Provider Source Aug 10, 2024 02:[address] ABD/PELVIS UROG CARMEN: DESIRAE MARY [facility] [id number] -[id number] M Exm Date: AUG 10, 2024@14:10 Req Phys: STONE,JOSE Doherty Inna Loc: JULIO PACT LEOS 16-1 (Req'g Loc) [facility] [place]: CT SCAN Service: [place] [address] (Case [id number] COMPLETE)CT ABD/PELVIS WITHOUT FOLLOWED BY(CT Detailed) CPT:31224 Contrast Media : Non-ionic Iodinated Reason for Study: hx kidney stones, please reeval for urology referral. Pharmaceutical: IODIXANOL 320mgI/ml INJ 500ML BOTTLE, 80ml Clinical History: Report Status: Verified Date Reported: AUG 12, 2024 Date Verified: AUG 12, 2024 It Application Administrator E-Sig: Report: CT ABD/PELVIS WITHOUT FOLLOWED BY WITH CONTRAST HISTORY: hx kidney stones, please reeval for urology referral. COMPARISON: None TECHNIQUE: CT of the abdomen and pelvis with multiplanar reformats was performed at the local [place] facility. 566 images were received by the [place] National Teleradiology Program (NTP) for interpretation. RADIATION [...] lower lobe. READING PHYSICIAN: Gordo Shannon MD -[id number] 08/12/2024 12:00 [facility] National Teleradiology Program [phone] (For Medical Practitioner Use Only) Attention Patients / Veterans: If you have questions or concerns about these test results, please contact your ordering provider or primary care team. Primary Diagnostic Code: NO ALERT REQUIRED Primary Interpreting Staff: OUTSIDE SERVICE RADIOLOGY, Staff Physician / RADIOLOGY,OUTSIDE SERVICE [facility] Encounter Notes: All associated encounter notes This section contains the clinical notes associated to the Encounter. Date/Time Encounter Note(s) Provider Source Aug 19, 2024 03:10 PM PHARMACY TELEPHONE ENCOUNTER NOTE: LOCAL TITLE: PHARMACY TELEPHONE CARE NOTE STANDARD TITLE: PHARMACY TELEPHONE ENCOUNTER NOTE DATE OF NOTE: AUG 19, 2024@15:10 ENTRY DATE: AUG 19, 2024@15:10:15 AUTHOR: CHANTEL PORTILLO COSIGNER: URGENCY: STATUS: COMPLETED 1. Name of caller: Patient 2. Phone #: same 3. Specialty Clinic/Primary Care Team: Progress Note Date Title Author (and Author's Title) APR 13, 2024@11:11 PC PROGRESS NOTE KATT GOTTI (NURSE PRAC 4. Medication: ALLOPURINOL 300MG TAB OUT RX 05/29/2023 05/29/2024 05/02/2024 JOSE RAUSCH R Sig: TAKE ONE TABLET BY MOUTH DAILY FOR GOUT... [+] CHLORTHALIDONE 25MG TAB OUT RX 05/29/2023 05/29/2024 05/23/2024 JOSE RAUSCH R Sig: TAKE ONE-HALF TABLET BY MOUTH DAILY FOR BLOOD PRESSURE... [+] LISINOPRIL 40MG TAB OUT RX 05/29/2023 05/29/2024 05/21/2024 JOSE RAUSCH R Sig: TAKE ONE TABLET BY MOUTH DAILY FOR HIGH BLOOD PRESSURE... [+] PANTOPRAZOLE NA 40MG EC TAB OUT RX 08/14/2023 08/14/2024 03/28/2024 JOSE RAUSCH R Sig: TAKE ONE TABLET BY MOUTH TWICE A DAY 30 MINUTES BEFORE A MEAL FOR ... [+] 5. Last fill date: Provider: 6. The caller requests prescription: Mailed 7. View Alert to: Primary Care Nurse /debra/ Chantel Portillo [facility] 9 Clinical Contact Center cell coverer Signed: 08/19/2024 15:11 Receipt Acknowledged By: 08/19/2024 15:35 /debra/ JUN LIM, RN PC LEAF STRIPPER 08/23/2024 12:53 /debra/ Jose Rausch MD Primary Care Attending CHANTEL PORTILLO-Michel [facility]
--- OUTSIDE RECORDS SUMMARY | 2024-10-18 15:00 | XMS_ITS | Encounter Summary ---
Author Name [facility] [place] [facility] [place] Address [address] [place] [id number] Care Team Providers Care Music Video Director Name Role Phone PATTIE MARTE Primary Care [...] PART A November 03, 2013 PART A [id number] PV48 DESIRAE MARY PATIENT MEDICARE (WNR) MEDICARE (M) PART B November 03, 2013 PART B [id number] PV48 LEATHADESIRAE MCCLOUD PATIENT Selected Encounter This section includes the information on record at [place] for the Encounter. Date/Time Encounter Type Encounter Description Reason Pro vider Source Aug 16, 2024 03:12 PM Outpatient Encounter PRIMARY CARE/MEDICINE IHE Encounter Template Text not used by [place] Lab Results: +/- 30 days of the encounter This section includes the Chemistry and Hematology Lab Results on record with [place] for the patient. Radiology Reports and Pathology Reports are provided separately, in subsequent sections. Lab Results This section contains the Chemistry/Hematology Results that were resulted 30 days before or 30 daysafter the date of the Encounter. Date/Time Source Result Type Result - Unit Interpretation Reference Range Specimen Type Comment Aug 10, 2024 02:12 PM [facility] EGFR + CREAT DATE SENSITIVE PLASMA [...] Aug 02, 2024 11:25 PM Reporting Lab: [facility] [address] [facility] [address] Performing Lab: [facility] [address] [facility] [address] CREATININE 1.28 mg/dL H 0.72-1.25 eGFR (CKD-EPI) 60 Social History: Smoking Status (Most current) and Tobacco Use (All prior to encounter date) This section includes the most current, and the historical, smoking and tobacco- related health factors from the [place] facility where the Encounter took place. Current Smoking Status This section includes the most current smoking, or tobacco-related health factor, from the [place] facility where the Encounter took place. Date/Time Current Smoking Status Comment Facil ity Apr 13, 2024 11:30 AM VA-TOBACCO FORMER USER [facility] Tobacco Use History This section includes a history of the smoking, or tobacco-related health factors, that were collected on or before the date of the Encounter. The data comes from the [place] facility where the Encounter took place. Date/Time Smoking Status/Tobacco Use Comment F acility Apr 13, 2024 11:30 AM VA-TOBACCO QUIT 15 YRS OR MORE [facility] May 18, 2023 11:30 AM VA-TOBACCO FORMER USER [facility] May 18, 2023 11:30 AM VA-TOBACCO QUIT 15 YRS OR MORE [facility] Jul 18, 2021 02:30 PM VA-TOBACCO FORMER USER [facility] Jul 18, 2021 02:30 PM VA-TOBACCO QUIT 15 YRS OR MORE [facility] Sep 09, 2013 12:30 PM V9 LIFETIME NON-USER OF TOBACCO [facility] Radiology Reports: +/- 30 days [...] the Encounter. The data comes from all [place] treatment facilities. Date/Time Radiology Report Provider Source Aug 10, 2024 02:[address] ABD/PELVIS UROG CARMEN: USMANDESIRAE [facility] [id number] -[id number] M Exm Date: AUG 10, 2024@14:10 Req Phys: PATTIE MARTE Pat Loc: JULIO PACT LEOS 16-1 (Req'g Loc) Im Loc: CT SCAN Service: [place] [address] (Case [id number] COMPLETE)CT ABD/PELVIS WITHOUT FOLLOWED BY(CT Detailed) CPT:79532 Contrast Media : Non-ionic Iodinated Reason for Study: hx kidney stones, please reeval for urology referral. Pharmaceutical: IODIXANOL 320mgI/ml INJ 500ML BOTTLE, 80ml Clinical History: Report Status: Verified Date Reported: AUG 12, 2024 Date Verified: AUG 12, 2024 Commissioned Security Officer E-Sig: Report: CT ABD/PELVIS WITHOUT FOLLOWED BY WITH CONTRAST HISTORY: hx kidney stones, please reeval for urology referral. COMPARISON: None TECHNIQUE: CT of the abdomen and pelvis with multiplanar reformats was performed at the local [place] facility. 566 images were received by the [place] National Teleradiology Program (NTP) for interpretation. RADIATION [...] lower lobe. READING PHYSICIAN: Gordo Shannon MD -[id number] 08/12/2024 12:00 [facility] National Teleradiology Program [phone] (For Medical Practitioner Use Only) Attention Patients / Veterans: If you have questions or concerns about these test results, please contact your ordering provider or primary care team. Primary Diagnostic Code: NO ALERT REQUIRED Primary Interpreting Staff: OUTSIDE SERVICE RADIOLOGY, Staff Physician / RADIOLOGY,OUTSIDE SERVICE [facility] Encounter Notes: All associated encounter notes This section contains the clinical notes associated to the Encounter. Date/Time Encounter Note(s) Provider Source Aug 16, 2024 03:12 PM PRIMARY CARE LETTE RS: LOCAL TITLE: PC LETTER TEST RESULTS STANDARD TITLE: PRIMARY CARE LETTERS DATE OF NOTE: AUG 16, 2024@15:12 ENTRY DATE: AUG 16, 2024@15:12:54 AUTHOR: DORIS SHEFFIELD COSIGNER: URGENCY: STATUS: COMPLETED [facility] [address] [place] [id number] Mr. DESIRAE GRAY USMAN [address] [address] AUG 16, 2024 Dear Mr. DESIRAE GRAY FLAQUITAROGERS Your Primary Care Provider has reviewed your recent tests, and wanted us to let you know that everything looked stable. A copy of your test results is attached below. You may notice that some tests are listed as outside normal limits. Your Primary Care Provider has reviewed these results, and has determined these are not considered to be significant. Therefore, they do not require further investigation or treatment. Stable kidney function and nonobstructive kidney stones present. No current evidence to suggest need for urology referral. Please call us if you have questions or problems. You can reach us at (toll free number) or [phone] (local number). If you are enrolled in [employer], and utilize those services, you may prefer to contact us by secure message. Thank you for your service to our Country. We are honored to be able to provide medical care to you. Recent labwork Collection DT Specimen Test Name Result Units Ref Range 08/10/2024 14:12 PLASMA!! CREATININE 1.28 H mg/dL 0.72 - 1.25 !! eGFR (CKD-EPI) 60 SEE EVAL !! Indicates COMMENTS AVAILABLE...Refer to Interim Lab Report. Recent radiology results Date Procedure CPT Status Case # 08/10/2024 CT ABD/PELVIS WITHOUT FOLLOWED [id number] Verified 1014 BY WITH CONTRAST 1. Nonobstructive nephrolithiasis bilaterally. 2. Mild prostate hypertrophy. Large hiatal hernia with suggestion of previous surgery. A small infiltrate of the left lower lobe. READING PHYSICIAN: Gordo Shannon MD -[id number] 08/12/2024 12:00 [facility] National Teleradiology Program [phone] (For Medical Practitioner Use Only) Attention Patients / Veterans: If you have questions or concerns about these test results, please contact your ordering provider or primary care team. Sincerely, /debra/ DORIS SHEFFIELD MD Primary Care Physician, Team Shanna Patient Record Number [id number] [facility]
--- OUTSIDE RECORDS SUMMARY | 2024-10-18 15:00 | XMS_ITS | Encounter Summary ---
Author Name [facility] [place] Address [address] [place] [address] Care Team Providers Care Hairspring Truing Inspector Name Role Phone PATTIE MARTE Primary Care [...] PART A November 03, 2013 PART A [id number] PV48 [phone] FLAQUITADESIRAE MCCLOUD PATIENT MEDICARE (WNR) MEDICARE (M) PART B November 03, 2013 PART B [id number] PV48 DESIRAE MARY PATIENT Selected Encounter This section includes the information on record at [place] for the Encounter. Date/Time Encounter Type Encounter Description Reason Provider Source May 31, 2024 02:30 PM THERAPEUTIC EXERCISES PHYSICAL THERAPY ICD-10-CM M25.561 Pain in right knee SASKIA MATAMOROS Greta Encounter Template Text not used by [place] Assessments - Encounter Diagnoses This section includes the primary and secondary diagnoses documented for the Encounter. Date/Time Primary/Secondary Diagnosis Diagnosis Name Provider Source May 31, 2024 03:25 PM PRIMARY Pain in right knee SASKIA MATAMOROS [facility] Plan of Treatment: Future Appointments (+ 6 months) and Future Tests (+/- 45 days) The Plan of Treatment section includes future care activities for the patient [facility] [place] [facility] This section includes future appointments and future orders which are active, pending or scheduled. Future Appointments This section includes appointments that were scheduled to occur 6 months from the date of the Encounter, up to a maximum of 20 appointments. The data comes from all [place] treatment facilities. Appointment Date/Time Appointment Type Appointme nt Facility Name Jun 15, 2024 01:00 PM AMB[facility]ATORY - NONE [place] [facility] Aug 10, 2024 03:30 PM AMBULATORY - NONE [place] Encounter Notes: All associated encounter notes This section contains the clinical notes associated to the Encounter. Date/Time Encounter Note(s) Provider Source May 31, 2024 02:32 PM PHYSICAL THERAPY O UTPATIENT NOTE: LOCAL TITLE: PHYSICAL THERAPY OUTPATIENT NOTE STANDARD TITLE: PHYSICAL THERAPY OUTPATIENT NOTE DATE OF NOTE: MAY 31, 2024@14:32 ENTRY DATE: MAY 31, 2024@14:32:49 AUTHOR: SASKIA MATAMOROS COSIGNER: URGENCY: STATUS: COMPLETED GOALS FROM MAY 18, 2024 INITIAL CONSULT: DATE OF ENCOUNTER: May 31, 2024 PATIENT NAME: Desirae Mary ([id number]) DIAGNOSIS: Pain in right knee REFERRING PRACTITIONER: Dinorah Gomes SUBJECTIVE: Pt. states he is doing well. Pt. states he has been using the braces and it has reduced the swelling and reduced the pain as well. Pt. states at worst his pain has been a 3/10 on a 0-10 scale. OBJECTIVE: TODAY'S TREATMENT: 40 MINUTES THERAPEUTIC EXERCISES: 40 MINUTES NuStep: Seat 14, UE 14, resistance 3, 8 minutes, 530 steps Hip abduction: standin x 10 reps (B) yellow Hip abduction: standin x 10 reps (B) yellow Glute sets: 5 x 10 hold Hip adduction isometrics: 5 x 10 hold ASSESSMENT: Patient subjectively improving with use of knee braces. Patient appears to understand instruction in home exercises to improve strength in hip muscles. Patient continues to have fair potential to benefit from treatment in clinical setting to achieve the goals set at the initial evaluation due to chronicity of symptoms. PLAN: Reassess; review HEP /es/ SASKIA MATAMOROS PT Signed: 05/31/2024 15:26 SASKIA MATAMOROS-D [facility]
--- NOTE | 2024-10-18 15:01 | XR_ITS ---
FINAL REPORT CLINICAL HISTORY: Nonspecific cough FINDINGS: PA and lateral views of the chest are obtained. There is no prior exam for comparison. The cardiac and mediastinal silhouettes are within normal limits. The lungs are clear. There is no pleural effusion, pneumothorax, or acute osseous abnormality. IMPRESSION: No radiographic evidence of acute cardiac or pulmonary disease. Reviewed, Interpreted and Dictated by Suzanna Silva MD Transcribed by Julissa Burrows Authenticated and [facility]
--- OUTSIDE RECORDS SUMMARY | 2024-10-18 15:01 | XMS_ITS | Encounter Summary ---
Author Name [facility] [place] Address [address] [place] [address] Care Team Providers Care Investor Relations Coordinator Name Role Phone PATTIE MARTE Primary Care [...] PART A November 03, 2013 PART A [id number] PV48 DESIRAE MARY PATIENT MEDICARE (WNR) MEDICARE (M) PART B November 03, 2013 PART B [id number] PV48 DESIRAE MARY PATIENT Selected Encounter This section includes the information on record at [place] for the Encounter. Date/Time Encounter Type Encounter Description Reason Pro vider Source Oct 13, 2024 07:46 AM Outpatient Encounter ADMIN PAT ACTIVTIES (MASNONCT) IHE Encounter Template Text not used by [place] Social History: Smoking Status (Most current) and [...] Saima ity Apr 13, 2024 11:30 AM VA-TOBACCO FORMER USER [facility] Tobacco Use History This section includes a history of the smoking, or tobacco-related health factors, that were collected on or before the date of the Encounter. The data comes from the [place] facility where the Encounter took place. Date/Time Smoking Status/Tobacco Use Comment Leigh Ann acjeromy Apr 13, 2024 11:30 AM VA-TOBACCO QUIT 15 YRS OR MORE [facility] May 18, 2023 11:30 AM VA-TOBACCO FORMER USER [facility] May 18, 2023 11:30 AM VA-TOBACCO QUIT 15 YRS OR MORE [facility] Jul 18, 2021 02:30 PM VA-TOBACCO FORMER USER [facility] Jul 18, 2021 02:30 PM VA-TOBACCO QUIT 15 YRS OR MORE [facility] Sep 09, 2013 12:30 PM V9 LIFETIME NON-USER OF TOBACCO [facility] Encounter Notes: All associated encounter notes This section contains the clinical notes associated to the Encounter. Date/Time Encounter Note(s) Provider Source Oct 13, 2024 07:46 AM PHARMACY NOTE: LOCAL TITLE: [facility] - PHARMACY STANDARD TITLE: PHARMACY NOTE DATE OF NOTE: OCT 13, 2024@07:46 ENTRY DATE: OCT 13, 2024@07:46:08 AUTHOR: TAL MOSHER EXP COSIGNER: URGENCY: STATUS: COMPLETED Pharmacy received prescriptions for fluocinonide and fluorouracil from outside provider Rahel Yap MD with [facility] in [place], [place]. [place] is not approved for [facility] benefits to see this provider, so pharmacy is unable to fill these prescriptions. Therefore, I will send a letter to encouraging him to contact [facility] to determine his eligibility for the program. /debra/ Tal Mosher PharmD, [facility] Pharmacy Claims Service Adjustor - [facility] Signed: 10/13/2024 07:49 TAL MOSHER-D [facility]
--- OUTSIDE RECORDS SUMMARY | 2024-10-18 15:01 | XMS_ITS | Encounter Summary ---
Author Name [facility] [place] [facility] Address [address] [place] [address] Care Team Providers Care Tub Operator Name Role Phone PATTIE MARTE Primary Care [...] PART B November 03, 2013 PART B [id number] JYOTISHERRIDESIRAE MCCLOUD PATIENT MEDICARE (WNR) MEDICARE (M) PART A November 03, 2013 PART A [id number] USMAN DESIRAE PATIENT Selected Encounter This section includes the information on record at [place] for the Encounter. Date/Time Encounter Type Encounter Description Reason Pro vider Source Aug 19, 2024 03:08 PM Outpatient Encounter ADMIN PAT ACTIVTIES (MASNONCT) [facility] Encounter Template Text not used by [facility] Lab Results: +/- 30 days of the encounter This section includes the Chemistry and Hematology Lab Results on record with [place] for the patient. Radiology Reports and Pathology Reports are provided separately, in subsequent sections. Lab Results This section contains the Chemistry/Hematology Results that were resulted 30 days before or 30 daysafter the date of the Encounter. Date/Time Source Result Type Result - Unit Interpretation Reference Range Specimen Type Comment Aug 10, 2024 02:12 PM [facility] EGFR + CREAT DATE SENSITIVE PLASMA [...] 02, 2024 11:25 PM Reporting Lab: [facility] [address] [id number] [facility]forming [facility] [address] [id number] CREATININE 1.28 mg/dL H 0.72-1.25 eGFR (CKD-EPI) [...] the Encounter. The data comes from all [place] treatment facilities. Date/Time Radiology Report Provider Source Aug 10, 2024 02:[address] ABD/PELVIS UROG CARMEN: DESIRAE [facility] [id number] -[id number] M Exm Date: AUG 10, 2024@14:10 Req Phys: PATTIE MARTE Pat Loc: [facility] 16-1 (Req'g Loc) Img Loc: CT SCAN Service: Unknown [place] [id number] (Case [id number] COMPLETE)CT ABD/PELVIS WITHOUT FOLLOWED BY(CT Detailed) CPT:42414 Contrast Media : Non-ionic Iodinated Reason for Study: hx kidney stones, please reeval for urology referral. Pharmaceutical: IODIXANOL 320mgI/ml INJ 500ML BOTTLE, 80ml Clinical History: Report Status: Verified Date Reported: AUG 12, 2024 Date Verified: AUG 12, 2024 Toaster Operator E-Sig: Report: CT ABD/PELVIS WITHOUT FOLLOWED BY WITH CONTRAST HISTORY: hx kidney stones, please reeval for urology referral. COMPARISON: None TECHNIQUE: CT of the abdomen and pelvis with multiplanar reformats was performed at the local [place] facility. 566 images were received by the [...] lower lobe. READING PHYSICIAN: Gordo Shannon MD -[id number] 08/12/2024 12:00 [facility] National Teleradiology Program [phone] (For Medical Practitioner Use Only) Attention Patients / Veterans: If you have questions or concerns about these test results, please contact your ordering provider or primary care team. Primary Diagnostic Code: NO ALERT REQUIRED Primary Interpreting Staff: OUTSIDE SERVICE RADIOLOGY, Staff Physician / RADIOLOGY,OUTSIDE SERVICE [facility] Encounter Notes: All associated encounter notes This section contains the clinical notes associated to the Encounter. Date/Time Encounter Note(s) Provider Source Aug 19, 2024 03:08 PM ADMINISTRATIVE NOT E: LOCAL TITLE: CCC: SCHEDULING ADMINISTRATION STANDARD TITLE: ADMINISTRATIVE NOTE DATE OF NOTE: AUG 19, 2024@15:08:11 ENTRY DATE: AUG 19, 2024@15:08:12 AUTHOR: MANDIE MONTANEZ COSIGNER: URGENCY: STATUS: COMPLETED CCC: SCHEDULING ADMINISTRATION Has ADDENDA Patient Demographics Patient Name: DESIRAE GRAY USMAN Patient Primary Phone: [phone] Patient Primary Address[address] [address] [place], [place] [id number] Patient : 1955 Patient Age: 68 Call Back Number: [phone] Caller/Recipient Relation to Patient: Self Caller Name: DESIRAE GRAY USMAN Administrative Administrative Note Reason: Lab / Imaging Results Administrative Note Comments: [place] calling to get results from last CT scan. Please call to discuss. Also inquiring about renewed refill for Pantoprazole. Transferred to Pharmacy. IMPORTANT: This note was created by [facility] Clinical Contact Center staff. Please do not alert the staff member by adding them as a signer for future communications. Alerts are not monitored by this user. /debra/ MANDIE MONTANEZ Signed: 08/19/2024 15:08 Receipt Acknowledged By: 08/23/2024 10:38 /debra/ JUN LIM, RN PC BRAKE OPERATOR HELPER 08/23/2024 ADDENDUM STATUS: COMPLETED Called patient, no answer, left general message to return phone call /arnie LIM, RN PC BRAKE OPERATOR HELPER Signed: 08/23/2024 09:49 MANDIE MONTANEZ[facility]
--- OUTSIDE RECORDS SUMMARY | 2024-10-18 15:01 | XMS_ITS | Data Portability ---
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 An EGD may be indicated but, before considering, would like to get a modified barium swallow study. I discussed a modified barium swallow with him, what it hopefully will add to his evaluation, and he is agreeable, and it will be scheduled. cc: Vivi Connell APRN [id number] Not available 09/12/2019 11:58:51 Plan of Treatment Reminders Order Date Submit Date Provider Last Modified By Organization Details Last Modified Time Details Appointments None record ed. Lab None record ed. Referral None record ed. Procedures None record ed. Surgeries None record ed. Imaging None record ed. Medication Orders None record ed. Patient TargetsNo targets recorded. Patient Instructions Encounter Date Encounter Id Patient Instructions Last Modified By Organization Details Last Modified Time 09/15/2019 [id number] body mass index: care instructions [email or web address] Not available 09/15/2019 13:20:11 Body Mass Index: Care Instructions-LC [email or web address] Not available 09/15/2019 13:20:11 learning about healthy weight [email or web address] Not available 09/15/2019 13:20:11 10/02/2020 [id number] leg and ankle edema: care instructions [email or web address] Not available 10/02/2020 14:02:15 body mass index: care instructions [email or web address] Not available 10/02/2020 14:02:15 Body Mass Index: Care Instructions-LC [email or web address] Not available 10/02/2020 14:02:15 learning about healthy weight [email or web address] Not available 10/02/2020 14:02:16 Reason for Referral None Reported. Results Created Date Observation Date Name Description Value Unit Range Abnormal Flag Note LastModifiedBy Organization Detail LastModifiedTime 03/29/20 20 03/29/2020 CMP, serum or plasm a glucose 111 mg/dL 74-100 high Not Available [facility] [address] [place] [address], [id number], 03/29/2020 14:32:38 03/29/20 20 03/29/2020 CMP, serum or plasm a blood urea nitrogen 19 mg/dL 6-20 normal Not Available [facility] [address] [place] [address], [id number], 03/29/2020 14:32:38 03/29/20 20 03/29/2020 CMP, serum or plasm a creatinine 1.39 mg/dL 0.70-1 .25 high Not Available [facility] [address] [place] [address], [id number], 03/29/2020 14:32:38 03/29/20 20 03/29/2020 CMP, serum or plasm a BUN/creatini ne ratio 14 (calc ) 10-20 normal Not Available [facility] [address] [place] [address], [id number], 03/29/2020 14:32:38 03/29/20 20 03/29/2020 CMP, serum or plasm a sodium 143 mmol/ L 136-14 5 normal Not Available [facility] [address] [place] [address], [id number], 03/29/2020 14:32:38 03/29/20 20 03/29/2020 CMP, serum or plasm a potassium 4.6 mmol/ L 3.4-5. 0 normal Not Available [facility] [address] [place] [address], [id number], 03/29/2020 14:32:38 03/29/20 20 03/29/2020 CMP, serum or plasm a chloride 109 mmol/ L 98-107 high Not Available [facility] [address] [place] [address], [id number], 03/29/2020 14:32:38 03/29/20 20 03/29/2020 CMP, serum or plasm a carbon dioxide 25 mmol/ L 20-32 normal Not Available [facility] [address] [place] [address], [id number], 03/29/2020 14:32:38 03/29/2003/29/2020 CMP, serum or plasm a anion gap 9 (calc ) 7-25 normal Not Available [facility] [address] [place] [address], [id number], 03/29/2020 14:32:38 03/29/20 20 03/29/2020 CMP, serum or plasm a calcium 9.3 mg/dL 8.6-10 .2 normal Not Available [facility] [address] [place] [address], [id number], 03/29/2020 14:32:38 03/29/20 20 03/29/2020 CMP, serum or plasm a total protein 6.8 g/dL 6.4-8. 3 normal Not Available [facility] [address] [place] [address], [id number], 03/29/2020 14:32:38 03/29/20 20 03/29/2020 CMP, serum or plasm a albumin 4.1 g/dL 3.5-5. 2 normal Not Available [facility] [address] [place] [address], [id number], 03/29/2020 14:32:38 03/29/20 20 03/29/2020 CMP, serum or plasm a globulin 2.7 g/dL_ (calc ) 1.5-4. 5 normal Not Available [facility] [address] [place] [address], [id number], 03/29/2020 14:32:38 03/29/20 20 03/29/2020 CMP, serum or plasm a albumin/glob ulin ratio 1.5 (calc ) 1.1-2. 5 normal Not Available [facility] [address] [place] [address], [id number], 03/29/2020 14:32:38 03/29/20 20 03/29/2020 CMP, serum or plasm a bilirubin, total 0.3 mg/dL 0.1-1. 2 normal Not Available [facility] [address] [place] [address], [id number], 03/29/2020 14:32:38 03/29/20 20 03/29/2020 CMP, serum or plasm a alkaline phosphatase 88 U/L 40-130 normal Not Available [facility] [address] [place] [address], [id number], 03/29/2020 14:32:38 03/29/20 20 03/29/2020 CMP, serum or plasm a AST 23 U/L 0-40 normal Not Available [facility] [address] [place] [address], [address], 03/29/2020 14:32:38 03/29/20 20 03/29/2020 CMP, serum or plasm a ALT 29 U/L 0-41 normal Not Available [facility] [address] [place] [address], [address], 03/29/2020 14:32:38 03/29/20 20 03/29/2020 CMP, serum or plasm a GFR 61 >= 60 normal Not Available [facility] [address] [place] [address], [id number], 03/29/2020 14:32:38 03/29/20 20 03/29/2020 CMP, serum or plasm a GFR non- 52 >= 60 abnormal NOT E NEW calcu latio n for GFR is based on the Natio nal Kidne y Found ation CKD-E PI equat ion and allow s for repor ting GFR value s great er than 60 mL/mi n/1.7 3 m2. This calcu latio n has not been valid ated for patie nts less than 18 yrs., pregn ant women and Hispa nics. Chron ic kidne y disea se is defin ed as kidne y damag e or GFR less than 60 mL/mi n/1.7 3 m2 for 3 month s or longe r. Not Available [facility] [address] [place] [address], [id number], 03/29/2020 14:32:38 03/29/2003/29/2020 CBC w/ auto diff white blood cells 7.7 K/uL 3.8-10 .8 normal Not Available [facility] [address] [place] [address], [address], 03/29/2020 13:59:27 03/29/20 20 03/29/2020 CBC w/ auto diff red blood cells 4.62 M/uL 4.20-5 .80 normal Not Available [facility] [address] [place] [address], [id number], 03/29/2020 13:59:27 03/29/20 20 03/29/2020 CBC w/ auto diff hemoglobin 13.9 g/dL 14.0-1 8.0 low Not Available [facility] [address] [place] [address], [id number], 03/29/2020 13:59:27 03/29/2003/29/2020 CBC w/ auto diff hematocrit 42.3 % 40.0-5 2.0 normal Not Available [facility] [address] [place] [address], [address], 03/29/2020 13:59:27 03/29/2003/29/2020 CBC w/ auto diff MCV 92 fL 80-100 normal Not Available [facility] [address] [place], [address], 03/29/2020 13:59:27 03/29/20 20 03/29/2020 CBC w/ auto diff MCH 30 pg 26-35 normal Not Available [facility] [address] [place] [address], [id number], 03/29/2020 13:59:27 03/29/20 20 03/29/2020 CBC w/ auto diff MCHC 33 g/dL 32-36 normal Not Available [facility] [address] [place] [address], [address], 03/29/2020 13:59:27 03/29/20 20 03/29/2020 CBC w/ auto diff RDW 15.3 % 11.0-1 5.0 high Not Available [facility] [address] [place] [address], [id number], 03/29/2020 13:59:27 03/29/20 20 03/29/2020 CBC w/ auto diff MPV 9.4 fL 6.2-10 .5 normal Not Available [facility] [address] [place] [address], [address], 03/29/2020 13:59:27 03/29/20 20 03/29/2020 CBC w/ auto diff platelet count 197 K/uL 130-40 0 normal Not Available [facility] [address] [place] [address], [address], 03/29/2020 13:59:27 03/29/20 20 03/29/2020 CBC w/ auto diff neutrophil,a bsolute 5.8 K/uL 1.6-8. 4 normal Not Available [facility] [address] [place] [address], [id number], 03/29/2020 13:59:27 03/29/20 20 03/29/2020 CBC w/ auto diff lymphocyte,a bsolute 1.1 K/uL 0.4-5. 1 normal Not Available [facility] [address] [place] [address], [id number], 03/29/2020 13:59:27 03/29/20 20 03/29/2020 CBC w/ auto diff monocyte,abs olute 0.6 K/uL 0.0-1. 2 normal Not Available [facility] [address] [place] [address], [address], 03/29/2020 13:59:27 03/29/20 20 03/29/2020 CBC w/ auto diff eosinophil,a bsolute 0.2 K/uL 0.0-0. 8 normal Not Available [facility] [address] [place] [address], [address], 03/29/2020 13:59:27 03/29/2003/29/2020 CBC w/ auto diff basophil,abs olute 0.0 K/uL 0.0-0. 3 normal Not Available [facility] [address] [place] [address], [address], 03/29/2020 13:59:27 03/29/20 20 03/29/2020 CBC w/ auto diff % neutrophils 76.0 % 42.0-7 8.0 normal Not Available [facility] [address] [place] [address], [address], 03/29/2020 13:59:27 03/29/20 20 03/29/2020 CBC w/ auto diff % lymphocytes 14.0 % 11.0-4 7.0 normal Not Available [facility] [address] [place] [address], [address], 03/29/2020 13:59:27 03/29/20 20 03/29/2020 CBC w/ auto diff % monocytes 7.3 % 0.0-11 .0 normal Not Available [facility] [address] [place] [address], [address], 03/29/2020 13:59:27 03/29/20 20 03/29/2020 CBC w/ auto diff % eosinophils 2.4 % 0.0-7. 0 normal Not Available [facility] [address] [place], [address], 03/29/2020 13:59:27 03/29/20 20 03/29/2020 CBC w/ auto diff % basophils 0.3 % 0.0-3. 0 normal Not Available [facility] [address] [place] [address], [address], 03/29/2020 13:59:27 03/29/20 20 03/29/2020 CBC w/ auto diff nucleated red cells 0.1 % 0.0-0. 9 normal Not Available [facility] [address] [place] [address], [address], 03/29/2020 13:59:27 03/29/20 20 03/29/2020 CBC w/ auto diff nucleated RBCs, absolute 0.01 K/uL not estab. normal Not Available [facility] [address] [place] [address], [address], 03/29/2020 13:59:27 08/15/19 20 08/15/2019 XR, abdom en, [address] [address] [place] Name: DESIRAE Esperanza JI AFT Karol baxter : [phone] [place] Orderi ng Provid er: MITZY ESTRADA OR EXAM DATE: 2019 EXAM: XR ABDOME N [facility] AL INFORM ATION: Histor y of urinar y tract stones . Histor y of lithot ripsy. IMAGES PROVID ED: K[facility] AP radiog raphic images of the abdome n. COMPAR TIFF: Images and report of [facility] 07/12/19 were review ed for compar tiff. FINDIN GS AND IMPRES TONIA: Previo usly seen stone fragme nts in the right kidney are fewer in number . Previo usly seen stone fragme nt in the left kidney is stable . Surgic al clips are seen at multip le levels in the abdome n. No other signif icant abnorm ality. Interp reted By: Yusuf Dunne MD Electr onical ly Signed By: Yusuf Dunne MD on 020 3:56 PM [facility] [address] [place] [address], [id number], 08/16/2019 14:50:44 09/15/19 20 09/05/2019 elect elizajose maria dandygr am No observ ation record ed. [email or web address] Not Available 2019 12:10:49 09/19/19 20 09/19/2019 CT, abdom en + pelvi s, w/o contr ast [place] [facility] [address] [place] [address] Patien t Name: DESIRAE JI AFT Patien t : [phone] [place] Orderi ng Provid er: Pro GALLEGOS EXAM DATE: 2019 EXAM: CT ABD/PE LVIS WITHOU T CONTRA ST CLINIC AL INFORM ATION: Umbili jose de jesus hernia TECHNI QUE: Multip le axial CT images of the abdome n and pelvis were obtain ed withou t inject ion of IV contra st. No oral contra st or water was admini stered to the patien t. COMPAR TIFF: None. FINDIN GS ON CT ABDOME N: LOWER THORAX : Lung bases are clear. No obviou s cardia c abnorm ality. UPPER ABDOMI NAL ORGANS : Spleen , pancre as, and adrena ls are normal . The gallbl adder is absent . Diffus e fatty metamo rphosi s of the liver. Multip le nonobs tructi ve small stones are presen t in both kidney s as before . BOWEL AND MESENT JEAN PAUL: Small bowel and colon are normal . No mesent kat lympha denopa thy or perito derek free fluid. Previo us esopha gectom y with gastri c pull-t hrough noted. RETROP ERITON EUM: Aorta, IVC and their branch es are patent and normal . No retrop eriton eal lympha denopa thy. ABDOMI NAL WALL AND SKELET AL STRUCT URES: Diasta ses of the rectus abdomi nal muscul ature. In the lower midlin e abdomi nal wall there is a fat-co ntaini ng midlin e hernia . The ostium of the hernia is roughl y 5 cm and there is no inflam mation or bowel loops within the hernia sac FINDIN GS ON CT PELVIS : PELVIC CAVITY : Urinar y bladde r and rectos igmoid are normal . Prosta te unrema rkable . No pelvic or inguin al lympha denopa thy, mass or fluid. MUSCUL OSKELE LAKISHA STRUCT URES: Normal . COMBIN ED IMPRES TONIA: 1. Fat-co ntaini ng lower midlin e abdomi nal wall hernia with no inflam mation 2. Fatty metamo rphosi s of the liver 3. Nonobs tructi ve bilate ral renal stones 4. Previo us esopha gectom y with gastri c pull-t hrough ; no metast asis noted Interp reted By: Doris Lemon MD Electr onical ly Signed By: Doris Lemon MD on 020 10:30 AM [facility] [address] [place], [address], 09/19/2019 16:13:05 09/19/19 20 09/19/2019 XR, esoph arely No observ ation record ed. [email or web address] [facility] [address], [place], [address], 05/31/2020 21:14:47 Result Notes None recorded. Problems Name Problem SNOMED Code Status Onset Date Resolution Date Notes Provider Name and Address Organization Details Recorded Time Clinical finding Active 2015 Status: Active Not Available [facility] 6 09:59:57 Kidney stone 55069531 Active 2015 From Automated Load;Prov ider: Julianna Paniagua tatus: Active Not Available [facility] 6 09:59:57 Thong hematuria 778875876 Active 2015 From Automated Load;Prov ider: Keagan Hubbard atus: Active Not Available [facility] 6 09:59:57 Lower urinary tract symptoms due to benign prostatic hypertrop hy 70084528206 101 Active 2015 From Automated Load;Prov ider: Keagan Hubbard atus: Active Not Available [facility] 7 08:32:08 History of malignant neoplasm of esophagus 913238587 Active 2017 FRENCH PANIAGUA MD [address] [place] [address], [address] , [facility] 8 12:50:22 Umbilical hernia 121143357 Active 2019 DORIS GALLEGOS JR, MD [address] [place] [address] , [facility] 0 13:08:23 Body mass index 30+ - obesity 597924215 Active 2019 DORIS GALLEGOS JR, MD [address] [place] [address] , [facility] 0 13:08:47 Edema of lower extremity 496302266 Active 2020 DORIS GALLEGOS JR, MD [address] [place] [address] 1 14:01:35 Problem Notes None recorded. Procedures Surgical History Date Name Laterality Status Provider Name and Address Organization Details Recorded Time 04/09/20 20 hernia repair completed Lou Gabriele [facility] 10/02/2020 13:12:07 07/29/19 20 EXTRA CORPOREAL SHOCKWAVE LITHOTRIPSY (SURG) completed Ailyn Guamanek [facility] 07/29/2019 12:56:22 11/13/19 17 Post Void Residual; Ultrasound completed Jacklyn Goodman [facility] 11/12/2016 09:50:26 05/12/20 11 esophagectomy completed Lou Gabriele [facility] 10/02/2020 13:33:46 Kidney Stones completed ANASTASIIA CORNEJO MD [address] [place] [address], [phone] [place] [address] 11/13/2016 17:54:39 tonsillectomy completed Chelita Weldon [facility] 09/15/2019 09:18:04 Cholecystectomy completed Lou Gabriele [facility] 10/02/2020 13:33:27 hemorrhoidectomy completed Lou Gabriele [facility] 10/02/2020 13:34:09 Imaging Results Imaging Date Name Status LastModified by Organization Details LastModified Time 08/15/2019 XR, abdomen, 1 view completed CRISPIN [facility] Radiology [facility] [address] [place], [address], 08/16/2019 14:50:44 09/05/2019 electrocardiogram completed [email or web address] Informa tion not available 09/15/2019 12:10:49 09/19/2019 CT, abdomen + pelvis, w/o contrast [email or web address] [address] [place], [address], 09/19/2019 16:13:05 09/19/2019 XR, esophagus completed [email or web address] [facility] [address] [place], [address], 05/31/2020 21:14:47 Procedure Notes None recorded. Medical Equipment None Reported. Allergies Allergen ID Allergen Name Allergen Category Reaction Reaction Severity Criticality Documentation Date Start Date Code Code System Note Provider Name and Address Organization Details Recorded Time 854385 Product containin g penicilli n (product) medicatio n rash moderate Not available 05/30/20162010 28741 8001 SNOMED Lou Suazo [facility] 1 13:31:08 Medications Name Sig Start Date Stop Date Status Note LastModified by Organization Details LastModified Time Multiple Vitamin capsule Daily active Duration : 30 days;Ins truction s: ADULTS 50 +;Freque ncy: daily;Me dication Descript ion: multivit saavedra; Dosage:1 ; Route:or al; refills: 3; Quantity :100 capsule Not Available Not Available Not Available ranitidin e 300 mg tablet Take 1 tablet twice a day by oral route. 10/02 completed Not Available Not Available Not Available meloxicam 15 mg tablet Take 1 tablet every day by oral route. 10/12 completed Not Available Not Available Not Available lisinopri l 20 mg tablet Bedtime 11/12 completed Duration : 30 days;Moiz quency: hs;Medic ation Descript ion: lisinopr il; Dosage:1 ; Route:or al; refills: 5; Quantity :30 tablet Not Available Not Available Not Available naproxen 250 mg tablet Daily 10/05 completed Frequenc y: daily;Me dication Descript ion: naproxen ; Dosage:3 ; Route:or al; refills: 5; Quantity :60 tablet Not Available Not Available Not Available famotidin e 20 mg tablet Take 1 tablet as needed by oral route. active Not Available Not Available No t Available tamsulosi n 0.4 mg capsule Take 1 capsule every day by oral route. 2019 active Not Available Not Available Not Avai lable lisinopri l 10 mg tablet Take 1 tablet every day by oral route. 09/14 completed Not Available Not Available Not Available omeprazol e 20 mg capsule,d elayed release TAKE ONE CAPSULE BY MOUTH TWICE A DAY 10/05 completed Not Available Not Available Not Available diclofena c sodium 75 mg tablet,de layed release Take 1 tablet twice a day by oral route. active Not Available Not Available No t Available furosemid e 20 mg tablet Take 1 tablet as needed by oral route. active Not Available Not Available No t Available Nada 5 mg-325 mg tablet Take 1 tablet every 6 hours by oral route as needed for 5 days. 10/05 completed Not Available Not Available Not Available lisinopri l 40 mg tablet Take 1 tablet every day by oral route. active 1/2 tab daily 20 mg Not Available Not Available Not Available sildenafi l (bulk) 100 % powder 10/12 completed Not Available Not Available Not Available sildenafi l (pulmonar y hypertens ion) 20 mg tablet 2-5 tablets as needed for sexual activity 09/11 completed Not Available Not Available Not Available oxycodone active prn Not Available Not Cathy ilable Not Available naproxen 220 mg-diphen hydramine 25 mg tablet Take as needed by oral route. 10/05 completed Not Available Not Available Not Available Vitals Date Recorded Body height Body mass index (BMI) Body weight Heart rate Systolic blood pressure Diastolic blood pressure Provider Name and Address Organization Details Last Updated DateTime 0 185.42 cm 40.6 kg/m2 092961. 45 g 73 /min 165 mm[Hg] 86 mm[Hg] Mirian Poe [facility] 0 10:10:53 Date Recorded Body height Body mass index (BMI) Body weight Heart rate Systolic blood pressure Diastolic blood pressure Provider Name and Address Organization Details Last Updated DateTime 0 185.42 cm 39.6 kg/m2 447596. 71 g 76 /min 140 mm[Hg] 78 mm[Hg] Chelita [facility] 0 09:09:34 Date Recorded Body height Body mass index (BMI) Body weight Heart rate Systolic blood pressure Diastolic blood pressure Provider Name and Address Organization Details Last Updated DateTime 0 185.42 cm 36.4 kg/m2 712219. 49 g 77 /min 139 mm[Hg] 79 mm[Hg] Chelita [facility] 0 12:49:24 Date Recorded Body height Body mass index (BMI) Body weight Systolic blood pressure Diastolic blood pressure Provider Name and Address Organization Details Last Updated DateTime 10/02/2020 185.42 cm 37.7 kg/m2 200765.4 2 g 140 mm[Hg] 92 mm[Hg] Lou Gabriele [facility] 1 13:39:29 Social History Question Answer Notes LastModified by Organizat ion Details LastModified Time Tobacco Smoking Status Former Smoker Rebeka flores, [facility] 12/04/2016 09:48:41 What Was The Date Of Your Most Recent Tobacco Screening? 10/02/2020 [email or web address] Information not available 10/02/2020 Sex: Unknown Functional Status None recorded. Mental Status None recorded. Family History Relationship Description Onset Age of this Age Resolved Age Notes LastModified by Organization Details LastModified Time Maternal Grandmother Asthma [email or web address] Not available 2019 09:15:59 Maternal Grandmother Glaucoma [email or web address] Not available 09/14 09:17:05 Maternal Grandmother Heart disease [email or web address] Not available 2019 09:17:18 Mother Hyperlipidem ia [email or web address] Not available 2019 09:16:11 Mother Depressive disorder [email or web address] Not available 2019 09:16:22 Mother Diabetes mellitus [email or web address] Not available 2019 09:16:53 Father Diabetes mellitus [email or web address] Not available 2019 09:16:53 Father Hypertensive disorder [email or web address] Not available 2019 09:17:28 Father Cerebrovascu lar accident [email or web address] Not available 06/2020 09:17:40 Notes:1. Family history of h eart disease 2. Family history of allergies 3. Family history of cancer prostate - father, uncle, cousin 4. Diabetes mellitus 5. Hypertension 6. Stroke syndrome 7. Family history of chronic disabling diseases Kidney stones Medical History Condition Response Gout N Thyroid Disease Y Kidney Stones Y Heart Arrhythmia N Emphysema N Erectile Dysfunction N Glaucoma N Depression N Pneumonia N Anesthesia Complications N Cancer Prostate N Anxiety Disorder N Arthritis N Acid Reflux (GERD) N Cancer Y Stroke N Radiation Therapy N High Cholesterol N High PSA N Liver Disease N Kidney Disease Y Allergies/Hayfever N False Teeth N Chronic Obstructive Pulmonary Disease N Heart Conditions N Gallbladder Disease Y Chemotherapy N Anemia N Urinary Problems N Heart Attack ([place]) N Ulcers N Mental Illness N Diabetes Y Low Testosterone N Seizures/Epilepsy N Tuberculosis N AIDS/HIV N Congestive Heart Failure (CHF) N BPH N Urinary Tract Infection N Asthma N Sleep Apnea N Thyroid Disorder Y Hepatitis N Heart Disease N Bronchitis N Hypertension N Immunizations Vaccine Type Date Status Note Provider Nam e and Address Organization Details Recorded Time Influenza, high-dose, quadrivalent, PF 07/17/2020 completed Lou Gabriele [facility] 10/02/2020 13:36:15 SARS-COV-2 (COVID-19) vaccine, UNSPECIFIED 10/03/2020 completed [facility]2020 13:36:29 SARS-COV-2 (COVID-19) vaccine, UNSPECIFIED 09/08/2020 completed Lou Gabriele [facility] 10/02/2020 13:36:45 Past Encounters Encounter ID Performer Location Encounter Start Date Encounter Closed Date Diagnosis/Indication Diagnosis SNOMED-CT Code Diagnosis ICD10 Code Diagnosis Note [id number] FRENCH PANIAGUA MD HEM/ONC [facility] CLOSED [address] [place] [address] 11/07/2016 10:29:49 11/07/2016 11:51:16 History of malignant neoplasm of esophagus 404715492 Z85.01 Diarrhea 97809002 R19.7 [id number] ANASTASIIA CORNEJO MD UROLOGY [place] CLOSED [address] [place] [address] 1 11/12/2016 09:36:34 11/12/2016 13:31:30 Calculus of kidney and ureter 310043959 N20.2 [id number] ANASTASIIA CORNEJO MD UROLOGY [place] CLOSED [address] [place] [address] 1 12/04/2016 09:11:40 12/04/2016 12:31:28 Calculus of kidney and ureter 069506192 N20.2 [id number] MITZY HUBBARD MD UROLOGY SB CLOSED [address] [place] [address] 1 01/08/2017 13:36:53 01/08/2017 14:37:32 Kidney stone 07228258 N20.0 [id number] MITZY HUBBARD MD UROLOGY SB CLOSED [address] [place] [address] 1 07/02/2017 08:57:05 07/02/2017 10:06:55 Kidney stone 62302645 N20.0 [id number] CJ HOBSON MD GASTRO SB [address] [facility], [address] [place] [address] 1 10/05/2017 11:22:20 10/13/2017 08:12:51 [id number] FRENCH PANIAGUA MD HEM/ONC [place] CLOSED [address] [facility] [address] [place] [address] 6 10/09/2017 11:46:03 10/09/2017 13:22:24 History of malignant neoplasm of esophagus 647604473 Z85.01 [id number] Marianna Crews SURGERY SCHEDULE [address] [place] [address] 1 10/23/2017 06:28:10 10/23/2017 06:29:05 [id number] MITZY HUBBARD MD UROLOGY SB CLOSED [address] [place] [address] 1 12/29/2017 09:30:07 12/29/2017 09:58:58 Hemospermia 21630207 R36.1 Impotence of organic origin 726499360 N52.9 Kidney stone 81253142 N2 0.0 [id number] MITZY HUBBARD MD UROLOGY SB CLOSED [address] [place] [address] 1 07/05/2018 09:09:58 07/05/2018 12:52:17 Kidney stone 54256696 N20.0 Impotence of organic origin 454029836 N52.9 [id number] FRENCH PANIAGUA MD HEM/ONC [facility] [address] [facility] [address] 6 10/12/2018 08:26:49 10/12/2018 09:36:21 History of malignant neoplasm of esophagus 294568009 Z85.01 [id number] MITZY HUBBARD MD UROLOGY SB CLOSED [address] [place] [address] 1 07/12/2019 08:50:36 07/12/2019 09:42:24 Benign prostatic hyperplasia with outflow obstruction 317390695 N40.1 Impotence of organic origin 205136508 N52.9 Kidney stone 30787363 N2 0.0 [id number] CJ HOBSON MD GASTRO SB [address] [facility], [address] 1 09/12/2019 09:50:19 09/14/2019 06:33:29 [id number] DORIS GALLEGOS JR, MD GENERAL SURGERY [facility] CLOSED [facility] [facility] [place],[facility] [address] [place], [place] [address] 6 09/15/2019 08:53:05 09/15/2019 13:32:59 History of malignant neoplasm of esophagus 922247706 Z85.01 Body mass index 30+ - obesity 689822376 Z68.39 Umbilical hernia 1295438 07 K42.9 Large, symptomati c umbilical hernia. Await workup of possible Zenker's diverticul a or esophageal pouch. He can have laparoscop ic repair of umbilical hernia using mesh. This would have 3% mortality, 15% chance of pneumonia, chance of worsening vocal cord function, 5% recurrence , 1% chance of mesh-relat ed complicati on. Needs alem block by anesthesia [id number] ISAIAS RUELAS MD HEM/ONC SB CLOSED [address] [place] [address] 03/29/2020 13:22:39 03/29/2020 16:07:35 [id number] DORIS GALLEGOS JR, MD GENERAL SURGERY [facility] CLOSED [address] [place] [address] 04/17/2020 12:45:10 04/17/2020 15:28:11 [id number] GALI HINES MD GASTRO SB [address] [facility], [address] [place] [address] 04/19/2020 08:15:06 06/18/2020 22:19:30 [id number] DORIS GALLEGOS JR, MD GENERAL SURGERY SB [address] [place] [address] 10/02/2020 13:25:31 10/02/2020 14:09:08 History of malignant neoplasm of esophagus 475996153 Z85.01 Body mass index 30+ - obesity 238392540 Z68.39 Umbilical hernia 0478852 07 K42.9 status post repair with underlay mesh April 2020. No sign recurrence . Avoid heavy lifting Edema of l ower extremity 688157684 R60.0 wear 20-30 mm elastic stockings daily. Avoid excessive salt intake [id number] ISAIAS RUELAS MD HEM/ONC SB CLOSED [address] [place] [address] 07/04/2022 12:18:55 07/04/2022 13:47:53 Health Concerns Section Related Observation LastModified by Organization Detai ls LastModified Time None Recorded Concern Status LastModified by Organization Details LastModified Time None Recorded Advance Directives Directive None Recorded Payers Encounter Date Sequence Insurance Name Policy Number Policy Condon Covered Member ID Condon Member ID Guarantor Name 09/12/2019 1 [facility] [id number] Desirae Zheng [id number] Desirae Zheng 09/12/2019 2 [place] Desirae Zheng [id number] Desirae Zheng 09/15/2019 1 [facility] [id number] Desirae Zheng [id number] Desirae Zheng 09/15/2019 2 [place] Des[place]ae Zheng [id number] Desirae Zheng 04/17/2020 1 [facility] [id number] Desirae Green [id number] Desirae Zheng 04/17/2020 2 [place] Desirae Zheng [id number] Desirae Zheng 04/19/2020 1 [facility] [id number] Desirae Zheng [id number] Desirae Zheng 04/19/2020 2 [place] Desirae Zheng [id number] Desirae Zheng 10/02/2020 1 [facility] [id number] Desirae Zheng [id number] Desirae Zheng 10/02/2020 2 [place] Desirae Zheng [id number] [id number] Desirae Zheng Notes Date Note Type Note Provider Name and Address Organization Details Recorded Time 0 text/html Desirae Zheng is a 63-year-old gentleman who is here today with, I think, his grandson. I know him quite well but have not seen him for a couple of years. He had an esophageal carcinoma removed by Dr. Molina in 2011. He had been followed in this department and by Dr. French Paniagua on a fairly regular basis. Dr. Paniagua is retired, and I do not see that he has any followups scheduled with anyone else in Oncology. At the time of Dr. Paniagua's last visit, he seemed to be doing well. He is here today for a followup and does have some noticeable symptoms. He feels that there are some swallowing problems in the cervical esophageal area. He feels that there is a pocket in this area, which occurs or seems to occur on an intermittent basis. When it happens, foods will seemingly not go down as easily as usual. He does have a history of regurgitation. He does have COPD and sleep apnea. He uses a CPAP machine and sleeps in a chair or in a recliner. If he lies flat, he will have significant problems with reflux/water brash. He has been on omeprazole in the past. At the present time, probably on ranitidine twice a day. His appetite is good. He is significantly overweight. He has had no unexplained weight loss. His bowel habits have not changed but are irregular. He relates he varies from diarrhea to constipation. He had a colonoscopy at [facility] about a year ago, and it was unremarkable but for diverticula. He followed on a regular basis in [place], and Dr. Baljit Aylaa has been his primary care in the past. He did have a general evaluation there recently by Vivi Connell APRN, and it was Ms[facility]afael oK that referred him to the clinic for followup. Mr. Zheng relates that after his esophageal surgery he had some swallowing problems and some surgeon did some procedure in his neck, which according to him may have left his vocal cord paralyzed. His voice is somewhat hoarse. CJ HOBSON MD [facility] [place], [address], [facility] 09/12/2019 14:06:59 0 text/html I'm seeing Mr. Zheng in consultation at the request of Dr. RYAN Ayala for evaluation of enlarging umbilical hernia. He is a 63-year-old male with history of esophagogastrectomy for esophageal cancer 8 years ago. He had been followed by Dr. French Paniagua and has not had recurrence. He did develop vocal cord paralysis following the procedure; ENT treatment did allow partial return of voice which is now hoarse. He complains of umbilical hernia that has gotten much larger in size. It was painful several months ago. He denies any blood in stool. He complains of vomiting up food he ate 4 days earlier. He is to have an esophagram next week. He complains of GERD. He sleeps in a recliner. He vomits daily. Occasionally he will follow repeatedly for 5 minutes. He complains of on and off leg swelling. He has history of diabetes which she states has improved after weight loss. He denies chest pain or myocardial infarction. He does have sleep apnea. He has history of hepatitis MD Sonido [place], [address], [facility] 09/15/2019 13:20:47 0 text/html Mr. Zheng had laparoscopic repair of umbilical hernia last week. His soreness is improving. He has excellent healing. Follow-up as needed. DORIS S GALLEGOS JR, MD [address] [place] [address], [phone], [facility] 04/17/2020 17:49:04 1 text/html Mr. Zheng is here by recommendation of his PCP for f/u of hole indention in his abdomen that is sore to touch at the site of his surgery (hernia repair in Apr 2020). she had esophagogastrectomy 2011 for esophageal cancer. He had developed large incisional hernia at umbilicus that was symptomatic. He underwent repair of this with 15 x 15cm underlay ventral light mesh in April 2020. His umbilicus was excised during that surgery. he recently noticed a small depression in his abdominal wall at the old umbilical scar. He had fleeting pain that resolved their one time. He also notes occasional severe swelling of his legs. He has some varicose veins that do not her too much. He occasionally wears stockings. DORIS GALLEGOS JR, MD [address] [place] [address], [phone], [facility] 10/02/2020 14:02:19
--- OUTSIDE RECORDS SUMMARY | 2024-10-18 15:01 | XMS_ITS | Encounter Summary ---
Author Name [facility] Address [address] [place] [address] Care Team Providers Care Military Exchange Wireless Manager Name Role Phone PATTIE MARTE Primary Care [...] PART A November 03, 2013 PART A [id number] [phone] FLAQUITADESIRAE MCCLOUD PATIENT MEDICARE (WNR) MEDICARE (M) PART B November 03, 2013 PART B [id number] USMAN DESIRAE PATIENT Selected Encounter This section includes the information on record at [facility] for the Encounter. Date/Time Encounter Type Encounter Description Reason Pro vider Source Jun 23, 2024 10:30 AM Outpatient Encounter PHYSICAL THERAPY IHE Encounter Template Text not used by [place] Plan of Treatment: Future Appointments (+ 6 months) and Future Tests (+/- 45 days) The Plan of Treatment section includes future care activities for the patient from all [facility] treatment[facility]. This section includes future appointments and future orders which are active, pending or scheduled. Future Appointments This section includes appointments that were scheduled to occur 6 months from the date of the Encounter, up to a maximum of 20 appointments. The data comes from all [place] treatment facilities. Appointment Date/Time Appointment Type Appointme nt Facility Name Aug 10, 2024 03:30 PM AMBULATORY - NONE [facility] Lab Results: +/- 30 days of [...] Type Comment Jul 04, 2024 02:49 PM [facility] N MICROALBUMIN/CREAT RATIO URINE Specimen Type: URINE No comment entered. Ordering Provider: PATTIE MARTE Report Released Date/Time: Jul 01, 2024 04:06 PM Reporting Lab: [address] [address] Performing Lab: [address] [address] CREATININE 141.0 mg/dL MICROALBUMIN QUANT 10.6 mg/L 0.0-30.0 .MICROALBUMIN/CREA RATIO 7.5 ug/mg{creat} Jul 04, 2024 02:21 PM [facility] PANEL 1 PLASMA Specimen Type: PLASM A [...] Jul 01, 2024 04:07 PM Reporting Lab: [address] [address] Performing Lab: [address] [address] CREATININE 1.28 mg/dL H 0.72-1.25 UREA NITROGEN 17 mg/dL 9-25 GLUCOSE 143 mg/dL H 74-100 SODIUM 142 mmol/L 136-145 POTASSIUM 4.1 mmol/L 3.5-5.1 CHLORIDE 108 mmol/L H 98-107 CO2 28 mmol/L 22-29 CALCIUM 9.8 mg/dL 8.4-10.2 ANION GAP 6 meq/L 3-19 eGFR (CKD-EPI) 60 Encounter Notes: All associated encounter notes This section contains the clinical notes associated to the Encounter. Date/Time Encounter Note(s) Provider Source Jul 26, 2024 11:29 AM PHYSICAL THERAPY D ISCHARGE NOTE: LOCAL TITLE: PHYSICAL THERAPY DISCHARGE NOTE STANDARD TITLE: PHYSICAL THERAPY DISCHARGE NOTE DATE OF NOTE: JUL 26, 2024@11:29 ENTRY DATE: JUL 26, 2024@11:29:35 AUTHOR: SASKIA MATAMOROS COSIGNER: URGENCY: STATUS: COMPLETED Patient is discharged from outpatient physical therapy clinic, [facility], per clinic policy due to greater than 30 day gap in treatment without contacting clinic. Patient cancelled scheduled follow up appointment on June 23, 2024 and did not contact clinic to reschedule. Patient attended 2 of 3 scheduled appointments for the diagnosis of right knee pain. Patient was not formally reassessed for progress toward goals of the initial consult due to attending physical therapy for less than 30 days, so benefit of outpatient physical therapy treatment is unable to be determined at this time. /debra/ SASKIA MATAMOROS PT Signed: 07/26/2024 11:32 SASKIA MATAMOROSMichel [facility] Jun 23, 2024 07:06 AM NO SHOW NOTE: LOCAL TITLE: PT/OT MISSED VISIT NOTE STANDARD TITLE: NO SHOW NOTE DATE OF NOTE: JUN 23, 2024@07:06 ENTRY DATE: JUN 23, 2024@07:07:02 AUTHOR: SASKIA MATAMOROSIGNMINI: URGENCY: STATUS: COMPLETED Patient cancelled today's scheduled follow up appointment in outpatient physical therapy clinic, [facility], at 1030 in time for another to be able to use that appointment. No clinical treatment on this date. /debra/ SASKIA MATAMOROS PT Signed: 06/23/2024 07:07 SASKIA MATAMOROSMichel [facility]
--- OUTSIDE RECORDS SUMMARY | 2024-10-18 15:01 | XMS_ITS ---
Care Plan - [facility] Created on: October 18, 2024 Brian Zheng : 1955 Sex: Male Author Organization [facility] Address [address] [place] [address] Phone Care Team Providers Care Manufacturing Assembler Name Role Phone Hans VERAS, Kash Johnson Unavailable [phone] WILLIE VERAS, SPRING Britt Primary Care Provider [phone]
--- OUTSIDE RECORDS SUMMARY | 2024-10-18 15:01 | XMS_ITS | Continuity of Care Document ---
Author Name [facility] Organization [facility] Care Team Providers Care Cupola Tapper Name Role Phone [facility] Unavailable Unavailable Problems Combined list of problems from Department of Defense and Veterans Affairs facilities. It does not include entries that were removed or entered in error. Problem Status Onset Date Problem Type Date of Resolution Comments Source Ankylosing spondylitis Active Condition [facility] Benign hypertensive renal disease [facility] Stage 3 (SCT 045698833) Active Condition [place] Chronic kidney disease stage 3 due to type 2 diabetes mellitus Active [place] Gastroesophageal reflux disease (SNOMED CT 462938738) [facility] Gout (SNOMED CT 89133234) [facility] History of calculus of kidney Active Condition [place] History of malignant neoplasm of esophagus Active Condition [place] [facility] Hypercalcemia (SCT 23753967) Active Condition [facility] Hypercholesterolemia (SCT 41225932) Active Condition Jun 23, 2022 Entered By: AGUILA MARTE Comment: declines statins [facility] Obesity (SNOMED CT 607773640) [facility] Obstructive sleep apnea syndrome Active Condition [facility] Right knee pain Active [place] [facility] Type 2 diabetes mellitus [facility] Varicose veins Active [place] [facility] Malignant tumor of esophagus (SNOMED CT 024153002) Inactive [facility] Primary hyperparathyroidism Inactive Condition 06/17/2022 [place] [facility] Diagnosis: ICD-10-CM Z87.442 Personal history of urinary calculi Active Diagnosis [facility] Diagnosis: ICD-10-CM N18.30 Chronic kidney disease, stage 3 unspecified Active Diagnosis [facility] Diagnosis: ICD-10-CM E11.22 Type 2 diabetes mellitus w diabetic chronic kidney disease Active Diagnosis [facility] Diagnosis: ICD-10-CM E66.09 Other obesity due to excess calories Active Diagnosis [facility] Diagnosis: ICD-10-CM M25.561 Pain in right knee Active Diagnosis [facility] Diagnosis: ICD-10-CM E11.8 Type 2 diabetes mellitus with unspecified complications Active Diagnosis [facility] Diagnosis: ICD-10-CM E78.00 Pure hypercholesterolemia, unspecified Active Diagnosis [facility] Diagnosis: ICD-10-CM K21.9 Gastro-esophageal reflux disease without esophagitis Active Diagnosis [facility] Diagnosis: ICD-10-CM R25.3 Fasciculation Active Diagnosis [facility] Medications Combined list of outpatient medications from Department of Defense and [facility] facilities.Medications provided include 1) outpatient medications from the last 15 months, and 2) patient-reported medications. Medication Details Route Status Patient Instructions Prescription Expires Prescription Number Last Dispense Date Ordering Provider Order Date Order Qty Source ALLOPURINOL 300MG TAB TAKE ONE TABLET BY MOUTH DAILY FOR GOUT ORAL ACTIVE 08/24/2025 [id number] 5 NGUYỄN MARTE [employer] [facility] R 2024 90 [place] [facility] ALLOPURINOL 300MG TAB TAKE ONE TABLET BY MOUTH DAILY FOR GOUT ORAL DISCONT INUED 05/29/2024 [id number] 4 NGUYỄN MARTE NDRA R 2022 90 [place] [facility] APPLE CIDER VINEGAR CAP/TAB TAKE 1 CAP/TAB BY MOUTH ORAL ACTIVE HEDANJU RENTERIA 2023 [place] [facility] ASCORBIC ACID 500MG TAB TAKE ONE TABLET BY MOUTH DAILY ORAL ACTIVE ANJU GOTTI 2023 [place] [facility] ASPIRIN 81MG TAB,EC TAKE ONE TABLET BY MOUTH DAILY ORAL ACTIVE ANJU GOTTI 2023 [place] [facility] CHLORTHALID ONE 25MG TAB TAKE ONE-HALF TABLET BY MOUTH DAILY FOR BLOOD PRESSURE ORAL ACTIVE 08/24/2025 [id number] 5 NGUYỄN MARTEA R 2024 45 [place] [facility] CHLORTHALID ONE 25MG TAB TAKE ONE-HALF TABLET BY MOUTH DAILY FOR BLOOD PRESSURE ORAL DISCONT INUED 05/29/2024 [id number] 4 NGUYỄN MARTEA R 2022 [address] [place] [facility] CHOLECALCIF BRADLY 50MCG (2,000UNIT) TAB TAKE TWO TABLETS BY MOUTH DAILY ORAL ACTIVE ANJU GOTTI 2023 [place] [facility] DOXYCYCLINE HYCLATE 100MG TAB TAKE ONE TABLET BY MOUTH TWICE A DAY FOR 10 DAYS FOR INFECTIO N ORAL ACTIVE 11/10/2024 [id number] 5 Latrell ZAPATA 2024 20 [place] [facility] FISH OIL 1000MG (500MG DHA/EPA) CAP,ORAL TAKE 1 CAPSULE BY MOUTH DAILY ORAL ACTIVE ANJU GOTTI 2023 [place] [facility] LISINOPRIL 40MG TAB TAKE ONE TABLET BY MOUTH DAILY FOR HIGH BLOOD PRESSURE ORAL ACTIVE 08/24/2025 [id number] 5 NGUYỄN MARTEA R 2024 [address] [place] [facility] LISINOPRIL 40MG TAB TAKE ONE TABLET BY MOUTH DAILY FOR HIGH BLOOD PRESSURE ORAL DISCONT INUED 05/29/2024 [id number] 4 NGUYỄN MARTEA R 2022 [address] [place] [facility] M[facility] OIL 3000MG ORAL THREE TIMES A DAY ACTIVE ANJU GOTTI 2023 [place] [facility] METHOCARBAM OL 500MG TAB TAKE ONE TABLET BY MOUTH EVERY 8 HOURS NEEDED FOR MUSCLE SPASM ORAL 01/21/2024 [id number] SIDDHARTHA GALVAN 2023 30 [place] [facility] MULTIVITAMI NS CAP/TAB TAKE 1 CAP/TAB BY MOUTH DAILY ORAL ACTIVE ANJU GOTTI 2023 [place] [facility] PANTOPRAZOL E NA 40MG TAB,EC TAKE ONE TABLET BY MOUTH TWICE A DAY 30 MINUTES BEFORE A MEAL FOR STOMACH -TAKE ON AN EMPTY STOMACH. ORAL ACTIVE 08/24/2025 [id number] 5 NGUYỄN MARTE [employer] [facility] R 2024 180 [place] [facility] PANTOPRAZOL E NA 40MG TAB,EC TAKE ONE TABLET BY MOUTH TWICE A DAY 30 MINUTES BEFORE A MEAL FOR STOMACH -TAKE ON AN EMPTY STOMACH. ORAL DISCONT INUED 08/14/2024 [id number] NGUYỄN MARTE [facility] R 2023 180 [place] [facility] PREDNISONE 20MG TAB TAKE THREE TABLETS BY MOUTH DAILY FOR 6 DAYS FOR INFLAMMA TION ORAL ACTIVE 11/10/2024 [id number] Latrell ZPAATA 2024 18 [place] [facility] PROBIOTIC COMBINATION CAP/TAB TAKE 1 CAP/TAB BY MOUTH DAILY ORAL ACTIVE ANJU GOTTI 2023 [place] [facility] Allergies, Adverse Reactions, Alerts Combined list of allergies from Department of Defense and Veterans Affairs facilities. It does not include entries that were removed or entered in error. Substance Category Reaction Severity Reaction type Status Date Reported Comments Source METFORMIN Propensity to adverse reactions to drug (finding) Diarrhea MILD active 4 [facility] PENICILLIN Propensity to adverse reactions to drug (finding) active 4 [facility] Immunizations Combined list of available immunizations from the Department of Defense and Veterans Affairs facilities. Immunization Series Date Given Administered By Site Reaction Lot Number CVX Code Drug Car Repossessor Status Comments Source COVID-19 (MODERNA), MRNA, LNP-S, PF, 50 MCG/0.5 ML (AGES 12+ YEARS) 2023 HERMAN ARIAS LEFT DELTO ID [id number] 312 complet ed Booster for Series, [facility]MINISTE [place], [place] [facility] TDAP 1 2023 115 complet ed HISTORICA L INFORMATI ON - FROM OTHER REGISTRY, [place] [facility] COVID-19 (MODERNA), MRNA, LNP-S, PF, 50 MCG/0.5 ML (AGES 12+ YEARS) 4 2022 312 complet ed HISTORICA L INFORMATI ON - FROM OTHER REGISTRY, [place] [facility] INFLUENZA, ADJUVANTED, QUADRIVALENT, PF 2022 205 complet ed HISTORICA L INFORMATI ON - FROM OTHER REGISTRY, [place] [facility] INFLUENZA, HIGH-DOSE, QUADRIVALENT 2022 HERMAN ARIAS LEFT DELTO ID [id number] 197 complet ed Completed Series, ADMINISTE RED [place], [place] [facility] COVID-19 (MODERNA), MRNA, LNP-S, BIVALENT, PF, 50 MCG/0.5 ML OR 25MCG/0.25 ML DOSE 3 2021 229 complet ed HISTORICA L INFORMATI ON - FROM OTHER REGISTRY, [place] [facility] INFLUENZA, HIGH-DOSE, QUADRIVALENT 2021 197 complet ed HISTORICA L INFORMATI ON - FROM OTHER PROVIDER, Partner:Balwinder LOW.Admin istered by:[facility] [id number]) .ND:[id number] ddress:[address] [facility].WI.4 [id number] Dosage: ML 0.7 [place] [facility] INFLUENZA, ADJUVANTED, QUADRIVALENT, PF 3 2020 205 complet ed HISTORICA L INFORMATI ON - FROM OTHER REGISTRY, [place] [facility] INFLUENZA, UNSPECIFIED FORMULATION 2020 88 complet ed [place] [facility] COVID-19 (Nubity), MRNA, LNP-S, PF, 30 MCG/0.3 ML DOSE 2 2020 208 complet ed HISTORICA L INFORMATI ON - FROM OTHER REGISTRY, [place] [facility] COVID-19 (Nubity), MRNA, LNP-S, PF, 30 MCG/0.3 ML DOSE 1 2020 208 complet ed HISTORICA L INFORMATI ON - FROM OTHER REGISTRY, [place] [facility] INFLUENZA, HIGH-DOSE, QUADRIVALENT, PF 2 2020 197 complet ed HISTORICA L INFORMATI ON - FROM OTHER REGISTRY, [place] [facility] INFLUENZA, HIGH-DOSE, TRIVALENT, PF 1 2018 135 complet ed HISTORICA L INFORMATI ON - FROM OTHER REGISTRY, [place] [facility] PNEUMOCOCCAL CONJUGATE PCV 13 1 2018 133 complet ed HISTORICA L INFORMATI ON - FROM OTHER REGISTRY, [place] [facility] TD(ADULT) UNSPECIFIED FORMULATION 2013 139 complet ed [place] [facility] INFLUENZA A & B (HISTORICAL) 2012 88 complet ed [place] [facility] Results Combined list of recent chemistry, hematology and other laboratory results from Department of Defense and Veterans Affairs, ranging from 15 months to all on record, depending upon the facility. Order Name Results Value Reference Range Date Interpretation Specimen Comments Source EGFR + CREAT DATE SENSITIVE CREATININE [MASS/VOLUM E] IN SERUM OR PLASMA 1.28 mg/dL 0.72 - 1.25 08/10 H Specimen Type: PLASMA Comment: Estimated Glomerular Filtration Rate (eGFR) calculated using the 2020 Chronic Kidney Disease-Epi demiology (CKD-EPI) Collaborati on creatinine equation; units of measure are mL/min/1.73 m2. Results are only valid for adults (>=18 years) whose serum creatinine is in a steady state. eGFR calculation s are not valid for patients with acute kidney injury and for patients on dialysis. Creatinine- based estimates of kidney function may also be inaccurate in patients with reduced creatinine generation due to decreased muscle mass (e.g., malnutritio n, severe hypoalbumin emia, sarcopenia, chronic neuromuscul ar disease, amputations , severe heart failure or liver disease) and in patients with increased creatinine generation due to increased muscle mass (e.g., muscle builders, anabolic steroids) or increased dietary intake. As drug clearance is proportiona l to total GFR and not GFR indexed to body surface area (BSA), in individuals with a BSA substantial ly different than 1.73 m2, drug dosing should be based on the reported eGFR value de-indexed from BSA by multiplying by the individual' s BSA and dividing by 1.73. CKD is diagnosed based on abnormaliti es of kidney structure or function, present for >3 months, with implication s for health and disease. CKD is classified and staged based on cause, eGFR and albuminuria (quantified as urine albumin to creatinine ratio). An eGFR >60 mL/min/1.73 m2 in the absence of increased urine albumin excretion or structural abnormaliti es does not represent CKD. eGFR CKD Interpretat ion (mL/min/1.7 3 m2) stage >=90 G1 Normal 60-89 G2 Mild decrease 45-59 G3A Mild to moderate decrease 30-44 G3B Moderate to severe decrease 15-29 G4 Severe decrease <15 G5 Kidney failure Ordering Provider: KAYCEE MARTE RA Report Released Date/Time: Aug 02, 2024 11:25 PM Reporting Lab: [facility] [address] [address] Performing Lab: [facility] [address] [address] [facility] EGFR + CREAT DATE SENSITIVE GLOMERULAR FILTRATION RATE/1.73 SQ M.PREDICTED [VOLUME RATE/AREA] IN SERUM, PLASMA OR BLOOD BY CREATININE- BASED FORMULA (CKD-EPI 2020) 60 08/10 Specimen Type: PLASMA Comment: Estimated Glomerular Filtration Rate (eGFR) calculated using the 2020 Chronic Kidney Disease-Epi demiology (CKD-EPI) Collaborati on creatinine equation; units of measure are mL/min/1.73 m2. Results are only valid for adults (>=18 years) whose serum creatinine is in a steady state. eGFR calculation s are not valid for patients with acute kidney injury and for patients on dialysis. Creatinine- based estimates of kidney function may also be inaccurate in patients with reduced creatinine generation due to decreased muscle mass (e.g., malnutritio n, severe hypoalbumin emia, sarcopenia, chronic neuromuscul ar disease, amputations , severe heart failure or liver disease) and in patients with increased creatinine generation due to increased muscle mass (e.g., muscle builders, anabolic steroids) or increased dietary intake. As drug clearance is proportiona l to total GFR and not GFR indexed to body surface area (BSA), in individuals with a BSA substantial ly different than 1.73 m2, drug dosing should be based on the reported eGFR value de-indexed from BSA by multiplying by the individual' s BSA and dividing by 1.73. CKD is diagnosed based on abnormaliti es of kidney structure or function, present for >3 months, with implication s for health and disease. CKD is classified and staged based on cause, eGFR and albuminuria (quantified as urine albumin to creatinine ratio). An eGFR >60 mL/min/1.73 m2 in the absence of increased urine albumin excretion or structural abnormaliti es does not represent CKD. eGFR CKD Interpretat ion (mL/min/1.7 3 m2) stage >=90 G1 Normal 60-89 G2 Mild decrease 45-59 G3A Mild to moderate decrease 30-44 G3B Moderate to severe decrease 15-29 G4 Severe decrease <15 G5 Kidney failure Ordering Provider: KAYCEE MARTE RA Report Released Date/Time: Aug 02, 2024 11:25 PM Reporting Lab: [id number] [address] Performing Lab: [address] [address] [facility] MICROALBU MIN/CREAT RATIO CREATININE [MASS/VOLUM E] IN URINE 141.0 mg/dL 07/04 Specimen Type: URINE No comment entered. Ordering Provider: KAYCEE MARTE RA Report Released Date/Time: Jul 01, 2024 04:06 PM Reporting Lab: [id number] [address] Performing Lab: [address] [address] [facility] MICROALBU MIN/CREAT RATIO MICROALBUMI N [MASS/VOLUM E] IN URINE 10.6 mg/L 0.0 - 30.0 07/04 Specimen Type: URINE No comment entered. Ordering Provider: KAYCEE MARTE RA Report Released Date/Time: Jul 01, 2024 04:06 PM Reporting Lab: [address] [address] Performing Lab: [address] [address] [facility] MICROALBU MIN/CREAT RATIO MICROALBUMI N/CREATININ E [MASS RATIO] IN URINE 7.5 ug/mg{ creat} 07/04 Specimen Type: URINE No comment entered. Ordering Provider: KAYCEE MARTE RA Report Released Date/Time: Jul 01, 2024 04:06 PM Reporting Lab: [address] [address] Performing Lab: [address] [address] [facility] PANEL 1 CREATININE [MASS/VOLUM E] IN SERUM OR PLASMA 1.28 mg/dL 0.72 - 1.25 07/04 H Specimen Type: PLASMA Comment: Estimated Glomerular Filtration Rate (eGFR) calculated using the 2020 Chronic Kidney Disease-Epi demiology (CKD-EPI) Collaborati on creatinine equation; units of measure are mL/min/1.73 m2. Results are only valid for adults (>=18 years) whose serum creatinine is in a steady state. eGFR calculation s are not valid for patients with acute kidney injury and for patients on dialysis. Creatinine- based estimates of kidney function may also be inaccurate in patients with reduced creatinine generation due to decreased muscle mass (e.g., malnutritio n, severe hypoalbumin emia, sarcopenia, chronic neuromuscul ar disease, amputations , severe heart failure or liver disease) and in patients with increased creatinine generation due to increased muscle mass (e.g., muscle builders, anabolic steroids) or increased dietary intake. As drug clearance is proportiona l to total GFR and not GFR indexed to body surface area (BSA), in individuals with a BSA substantial ly different than 1.73 m2, drug dosing should be based on the reported eGFR value de-indexed from BSA by multiplying by the individual' s BSA and dividing by 1.73. CKD is diagnosed based on abnormaliti es of kidney structure or function, present for >3 months, with implication s for health and disease. CKD is classified and staged based on cause, eGFR and albuminuria (quantified as urine albumin to creatinine ratio). An eGFR >60 mL/min/1.73 m2 in the absence of increased urine albumin excretion or structural abnormaliti es does not represent CKD. eGFR CKD Interpretat ion (mL/min/1.7 3 m2) stage >=90 G1 Normal 60-89 G2 Mild decrease 45-59 G3A Mild to moderate decrease 30-44 G3B Moderate to severe decrease 15-29 G4 Severe decrease <15 G5 Kidney failure Ordering Provider: KAYCEE MARTE RA Report Released Date/Time: Jul 01, 2024 04:07 PM Reporting Lab: [facility] [address] [address] Performing Lab: [facility] [address] [address] [facility] PANEL 1 UREA NITROGEN [MASS/VOLUM E] IN SERUM OR PLASMA 17 mg/dL 07/04 Specimen Type: PLASMA Comment: Estimated Glomerular Filtration Rate (eGFR) calculated using the 2020 Chronic Kidney Disease-Epi demiology (CKD-EPI) Collaborati on creatinine equation; units of measure are mL/min/1.73 m2. Results are only valid for adults (>=18 years) whose serum creatinine is in a steady state. eGFR calculation s are not valid for patients with acute kidney injury and for patients on dialysis. Creatinine- based estimates of kidney function may also be inaccurate in patients with reduced creatinine generation due to decreased muscle mass (e.g., malnutritio n, severe hypoalbumin emia, sarcopenia, chronic neuromuscul ar disease, amputations , severe heart failure or liver disease) and in patients with increased creatinine generation due to increased muscle mass (e.g., muscle builders, anabolic steroids) or increased dietary intake. As drug clearance is proportiona l to total GFR and not GFR indexed to body surface area (BSA), in individuals with a BSA substantial ly different than 1.73 m2, drug dosing should be based on the reported eGFR value de-indexed from BSA by multiplying by the individual' s BSA and dividing by 1.73. CKD is diagnosed based on abnormaliti es of kidney structure or function, present for >3 months, with implication s for health and disease. CKD is classified and staged based on cause, eGFR and albuminuria (quantified as urine albumin to creatinine ratio). An eGFR >60 mL/min/1.73 m2 in the absence of increased urine albumin excretion or structural abnormaliti es does not represent CKD. eGFR CKD Interpretat ion (mL/min/1.7 3 m2) stage >=90 G1 Normal 60-89 G2 Mild decrease 45-59 G3A Mild to moderate decrease 30-44 G3B Moderate to severe decrease 15-29 G4 Severe decrease <15 G5 Kidney failure Ordering Provider: KAYCEE MARTE RA Report Released Date/Time: Jul 01, 2024 04:07 PM Reporting Lab[facility] [address] [address] Performing Lab: [address] [address] [facility] PANEL 1 GLUCOSE [MASS/VOLUM E] IN SERUM OR PLASMA 143 mg/dL 74 - 100 07/04 H Specimen Type: PLASMA Comment: Estimated Glomerular Filtration Rate (eGFR) calculated using the 2020 Chronic Kidney Disease-Epi demiology (CKD-EPI) Collaborati on creatinine equation; units of measure are mL/min/1.73 m2. Results are only valid for adults (>=18 years) whose serum creatinine is in a steady state. eGFR calculation s are not valid for patients with acute kidney injury and for patients on dialysis. Creatinine- based estimates of kidney function may also be inaccurate in patients with reduced creatinine generation due to decreased muscle mass (e.g., malnutritio n, severe hypoalbumin emia, sarcopenia, chronic neuromuscul ar disease, amputations , severe heart failure or liver disease) and in patients with increased creatinine generation due to increased muscle mass (e.g., muscle builders, anabolic steroids) or increased dietary intake. As drug clearance is proportiona l to total GFR and not GFR indexed to body surface area (BSA), in individuals with a BSA substantial ly different than 1.73 m2, drug dosing should be based on the reported eGFR value de-indexed from BSA by multiplying by the individual' s BSA and dividing by 1.73. CKD is diagnosed based on abnormaliti es of kidney structure or function, present for >3 months, with implication s for health and disease. CKD is classified and staged based on cause, eGFR and albuminuria (quantified as urine albumin to creatinine ratio). An eGFR >60 mL/min/1.73 m2 in the absence of increased urine albumin excretion or structural abnormaliti es does not represent CKD. eGFR CKD Interpretat ion (mL/min/1.7 3 m2) stage >=90 G1 Normal 60-89 G2 Mild decrease 45-59 G3A Mild to moderate decrease 30-44 G3B Moderate to severe decrease 15-29 G4 Severe decrease <15 G5 Kidney failure Ordering Provider: KAYCEE MARTE RA Report Released Date/Time: Jul 01, 2024 04:07 PM Reporting Lab: [facility] [address] [address] Performing Lab: [facility] [address] [address] [facility] PANEL 1 SODIUM [MOLES/VOLU ME] IN SERUM OR PLASMA 142 mmol/L 136 - 145 07/04 Specimen Type: PLASMA Comment: Estimated Glomerular Filtration Rate (eGFR) calculated using the 2020 Chronic Kidney Disease-Epi demiology (CKD-EPI) Collaborati on creatinine equation; units of measure are mL/min/1.73 m2. Results are only valid for adults (>=18 years) whose serum creatinine is in a steady state. eGFR calculation s are not valid for patients with acute kidney injury and for patients on dialysis. Creatinine- based estimates of kidney function may also be inaccurate in patients with reduced creatinine generation due to decreased muscle mass (e.g., malnutritio n, severe hypoalbumin emia, sarcopenia, chronic neuromuscul ar disease, amputations , severe heart failure or liver disease) and in patients with increased creatinine generation due to increased muscle mass (e.g., muscle builders, anabolic steroids) or increased dietary intake. As drug clearance is proportiona l to total GFR and not GFR indexed to body surface area (BSA), in individuals with a BSA substantial ly different than 1.73 m2, drug dosing should be based on the reported eGFR value de-indexed from BSA by multiplying by the individual' s BSA and dividing by 1.73. CKD is diagnosed based on abnormaliti es of kidney structure or function, present for >3 months, with implication s for health and disease. CKD is classified and staged based on cause, eGFR and albuminuria (quantified as urine albumin to creatinine ratio). An eGFR >60 mL/min/1.73 m2 in the absence of increased urine albumin excretion or structural abnormaliti es does not represent CKD. eGFR CKD Interpretat ion (mL/min/1.7 3 m2) stage >=90 G1 Normal 60-89 G2 Mild decrease 45-59 G3A Mild to moderate decrease 30-44 G3B Moderate to severe decrease 15-29 G4 Severe decrease <15 G5 Kidney failure Ordering Provider: KAYCEE MARTE RA Report Released Date/Time: Jul 01, 2024 04:07 PM Reporting Lab: [facility] [address] [address] Performing Lab: [facility] [address] [address] [facility] PANEL 1 POTASSIUM [MOLES/VOLU ME] IN SERUM OR PLASMA 4.1 mmol/L 3.5 - 5.1 07/04 Specimen Type: PLASMA Comment: Estimated Glomerular Filtration Rate (eGFR) calculated using the 2020 Chronic Kidney Disease-Epi demiology (CKD-EPI) Collaborati on creatinine equation; units of measure are mL/min/1.73 m2. Results are only valid for adults (>=18 years) whose serum creatinine is in a steady state. eGFR calculation s are not valid for patients with acute kidney injury and for patients on dialysis. Creatinine- based estimates of kidney function may also be inaccurate in patients with reduced creatinine generation due to decreased muscle mass (e.g., malnutritio n, severe hypoalbumin emia, sarcopenia, chronic neuromuscul ar disease, amputations , severe heart failure or liver disease) and in patients with increased creatinine generation due to increased muscle mass (e.g., muscle builders, anabolic steroids) or increased dietary intake. As drug clearance is proportiona l to total GFR and not GFR indexed to body surface area (BSA), in individuals with a BSA substantial ly different than 1.73 m2, drug dosing should be based on the reported eGFR value de-indexed from BSA by multiplying by the individual' s BSA and dividing by 1.73. CKD is diagnosed based on abnormaliti es of kidney structure or function, present for >3 months, with implication s for health and disease. CKD is classified and staged based on cause, eGFR and albuminuria (quantified as urine albumin to creatinine ratio). An eGFR >60 mL/min/1.73 m2 in the absence of increased urine albumin excretion or structural abnormaliti es does not represent CKD. eGFR CKD Interpretat ion (mL/min/1.7 3 m2) stage >=90 G1 Normal 60-89 G2 Mild decrease 45-59 G3A Mild to moderate decrease 30-44 G3B Moderate to severe decrease 15-29 G4 Severe decrease <15 G5 Kidney failure Ordering Provider: KAYCEE MARTE RA Report Released Date/Time: Jul 01, 2024 04:07 PM Reporting Lab: [facility] [address] [address] Performing Lab: [facility] [address] [address] [facility] PANEL 1 CHLORIDE [MOLES/VOLU ME] IN SERUM OR PLASMA 108 mmol/L 98 - 107 07/04 H Specimen Type: PLASMA Comment: Estimated Glomerular Filtration Rate (eGFR) calculated using the 2020 Chronic Kidney Disease-Epi demiology (CKD-EPI) Collaborati on creatinine equation; units of measure are mL/min/1.73 m2. Results are only valid for adults (>=18 years) whose serum creatinine is in a steady state. eGFR calculation s are not valid for patients with acute kidney injury and for patients on dialysis. Creatinine- based estimates of kidney function may also be inaccurate in patients with reduced creatinine generation due to decreased muscle mass (e.g., malnutritio n, severe hypoalbumin emia, sarcopenia, chronic neuromuscul ar disease, amputations , severe heart failure or liver disease) and in patients with increased creatinine generation due to increased muscle mass (e.g., muscle builders, anabolic steroids) or increased dietary intake. As drug clearance is proportiona l to total GFR and not GFR indexed to body surface area (BSA), in individuals with a BSA substantial ly different than 1.73 m2, drug dosing should be based on the reported eGFR value de-indexed from BSA by multiplying by the individual' s BSA and dividing by 1.73. CKD is diagnosed based on abnormaliti es of kidney structure or function, present for >3 months, with implication s for health and disease. CKD is classified and staged based on cause, eGFR and albuminuria (quantified as urine albumin to creatinine ratio). An eGFR >60 mL/min/1.73 m2 in the absence of increased urine albumin excretion or structural abnormaliti es does not represent CKD. eGFR CKD Interpretat ion (mL/min/1.7 3 m2) stage >=90 G1 Normal 60-89 G2 Mild decrease 45-59 G3A Mild to moderate decrease 30-44 G3B Moderate to severe decrease 15-29 G4 Severe decrease <15 G5 Kidney failure Ordering Provider: KAYCEE AMRTE RA Report Released Date/Time: Jul 01, 2024 04:07 PM Reporting Lab: [facility] [address] [address] Performing Lab: [facility] [address] [address] [facility] PANEL 1 CARBON DIOXIDE, TOTAL [MOLES/VOLU ME] IN SERUM OR PLASMA 28 mmol/L 22 - 29 07/04 Specimen Type: PLASMA Comment: Estimated Glomerular Filtration Rate (eGFR) calculated using the 2020 Chronic Kidney Disease-Epi demiology (CKD-EPI) Collaborati on creatinine equation; units of measure are mL/min/1.73 m2. Results are only valid for adults (>=18 years) whose serum creatinine is in a steady state. eGFR calculation s are not valid for patients with acute kidney injury and for patients on dialysis. Creatinine- based estimates of kidney function may also be inaccurate in patients with reduced creatinine generation due to decreased muscle mass (e.g., malnutritio n, severe hypoalbumin emia, sarcopenia, chronic neuromuscul ar disease, amputations , severe heart failure or liver disease) and in patients with increased creatinine generation due to increased muscle mass (e.g., muscle builders, anabolic steroids) or increased dietary intake. As drug clearance is proportiona l to total GFR and not GFR indexed to body surface area (BSA), in individuals with a BSA substantial ly different than 1.73 m2, drug dosing should be based on the reported eGFR value de-indexed from BSA by multiplying by the individual' s BSA and dividing by 1.73. CKD is diagnosed based on abnormaliti es of kidney structure or function, present for >3 months, with implication s for health and disease. CKD is classified and staged based on cause, eGFR and albuminuria (quantified as urine albumin to creatinine ratio). An eGFR >60 mL/min/1.73 m2 in the absence of increased urine albumin excretion or structural abnormaliti es does not represent CKD. eGFR CKD Interpretat ion (mL/min/1.7 3 m2) stage >=90 G1 Normal 60-89 G2 Mild decrease 45-59 G3A Mild to moderate decrease 30-44 G3B Moderate to severe decrease 15-29 G4 Severe decrease <15 G5 Kidney failure Ordering Provider: KAYCEE MARTE RA Report Released Date/Time: Jul 01, 2024 04:07 PM Reporting Lab: [facility] [address] [address] Performing Lab: [facility] [address] [address] [facility] PANEL 1 CALCIUM [MASS/VOLUM E] IN SERUM OR PLASMA 9.8 mg/dL 8.4 - 10.2 07/04 Specimen Type: PLASMA Comment: Estimated Glomerular Filtration Rate (eGFR) calculated using the 2020 Chronic Kidney Disease-Epi demiology (CKD-EPI) Collaborati on creatinine equation; units of measure are mL/min/1.73 m2. Results are only valid for adults (>=18 years) whose serum creatinine is in a steady state. eGFR calculation s are not valid for patients with acute kidney injury and for patients on dialysis. Creatinine- based estimates of kidney function may also be inaccurate in patients with reduced creatinine generation due to decreased muscle mass (e.g., malnutritio n, severe hypoalbumin emia, sarcopenia, chronic neuromuscul ar disease, amputations , severe heart failure or liver disease) and in patients with increased creatinine generation due to increased muscle mass (e.g., muscle builders, anabolic steroids) or increased dietary intake. As drug clearance is proportiona l to total GFR and not GFR indexed to body surface area (BSA), in individuals with a BSA substantial ly different than 1.73 m2, drug dosing should be based on the reported eGFR value de-indexed from BSA by multiplying by the individual' s BSA and dividing by 1.73. CKD is diagnosed based on abnormaliti es of kidney structure or function, present for >3 months, with implication s for health and disease. CKD is classified and staged based on cause, eGFR and albuminuria (quantified as urine albumin to creatinine ratio). An eGFR >60 mL/min/1.73 m2 in the absence of increased urine albumin excretion or structural abnormaliti es does not represent CKD. eGFR CKD Interpretat ion (mL/min/1.7 3 m2) stage >=90 G1 Normal 60-89 G2 Mild decrease 45-59 G3A Mild to moderate decrease 30-44 G3B Moderate to severe decrease 15-29 G4 Severe decrease <15 G5 Kidney failure Ordering Provider: KAYCEE MARTE RA Report Released Date/Time: Jul 01, 2024 04:07 PM Reporting Lab: [facility] [address] [facility] [phone] Performing Lab: [facility] [address] [facility] [phone] [facility] PANEL 1 ANION GAP 3 IN SERUM OR PLASMA 6 meq/L 3 - 19 07/04 Specimen Type: PLASMA Comment: Estimated Glomerular Filtration Rate (eGFR) calculated using the 2020 Chronic Kidney Disease-Epi demiology (CKD-EPI) Collaborati on creatinine equation; units of measure are mL/min/1.73 m2. Results are only valid for adults (>=18 years) whose serum creatinine is in a steady state. eGFR calculation s are not valid for patients with acute kidney injury and for patients on dialysis. Creatinine- based estimates of kidney function may also be inaccurate in patients with reduced creatinine generation due to decreased muscle mass (e.g., malnutritio n, severe hypoalbumin emia, sarcopenia, chronic neuromuscul ar disease, amputations , severe heart failure or liver disease) and in patients with increased creatinine generation due to increased muscle mass (e.g., muscle builders, anabolic steroids) or increased dietary intake. As drug clearance is proportiona l to total GFR and not GFR indexed to body surface area (BSA), in individuals with a BSA substantial ly different than 1.73 m2, drug dosing should be based on the reported eGFR value de-indexed from BSA by multiplying by the individual' s BSA and dividing by 1.73. CKD is diagnosed based on abnormaliti es of kidney structure or function, present for >3 months, with implication s for health and disease. CKD is classified and staged based on cause, eGFR and albuminuria (quantified as urine albumin to creatinine ratio). An eGFR >60 mL/min/1.73 m2 in the absence of increased urine albumin excretion or structural abnormaliti es does not represent CKD. eGFR CKD Interpretat ion (mL/min/1.7 3 m2) stage >=90 G1 Normal 60-89 G2 Mild decrease 45-59 G3A Mild to moderate decrease 30-44 G3B Moderate to severe decrease 15-29 G4 Severe decrease <15 G5 Kidney failure Ordering Provider: KAYCEE MARTE RA Report Released Date/Time: Jul 01, 2024 04:07 PM Reporting Lab: [facility] [address] [facility] [phone] Performing Lab: [facility] [address] [facility] [address] [facility] PANEL 1 GLOMERULAR FILTRATION RATE/1.73 SQ M.PREDICTED [VOLUME RATE/AREA] IN SERUM, PLASMA OR BLOOD BY CREATININE- BASED FORMULA (CKD-EPI 2020) 60 07/04 Specimen Type: PLASMA Comment: Estimated Glomerular Filtration Rate (eGFR) calculated using the 2020 Chronic Kidney Disease-Epi demiology (CKD-EPI) Collaborati on creatinine equation; units of measure are mL/min/1.73 m2. Results are only valid for adults (>=18 years) whose serum creatinine is in a steady state. eGFR calculation s are not valid for patients with acute kidney injury and for patients on dialysis. Creatinine- based estimates of kidney function may also be inaccurate in patients with reduced creatinine generation due to decreased muscle mass (e.g., malnutritio n, severe hypoalbumin emia, sarcopenia, chronic neuromuscul ar disease, amputations , severe heart failure or liver disease) and in patients with increased creatinine generation due to increased muscle mass (e.g., muscle builders, anabolic steroids) or increased dietary intake. As drug clearance is proportiona l to total GFR and not GFR indexed to body surface area (BSA), in individuals with a BSA substantial ly different than 1.73 m2, drug dosing should be based on the reported eGFR value de-indexed from BSA by multiplying by the individual' s BSA and dividing by 1.73. CKD is diagnosed based on abnormaliti es of kidney structure or function, present for >3 months, with implication s for health and disease. CKD is classified and staged based on cause, eGFR and albuminuria (quantified as urine albumin to creatinine ratio). An eGFR >60 mL/min/1.73 m2 in the absence of increased urine albumin excretion or structural abnormaliti es does not represent CKD. eGFR CKD Interpretat ion (mL/min/1.7 3 m2) stage >=90 G1 Normal 60-89 G2 Mild decrease 45-59 G3A Mild to moderate decrease 30-44 G3B Moderate to severe decrease 15-29 G4 Severe decrease <15 G5 Kidney failure Ordering Provider: KAYCEE MARTE RA Report Released Date/Time: Jul 01, 2024 04:07 PM Reporting Lab: [facility] [address] [address] Performing Lab: [facility] [address] [address] [facility] LIPID PROFILE CHOLESTEROL [MASS/VOLUM E] IN SERUM OR PLASMA 195 mg/dL 0 - 199 04/13 Specimen Type: PLASMA Comment: Estimated Glomerular Filtration Rate (eGFR) calculated using the 2020 Chronic Kidney Disease-Epi demiology (CKD-EPI) Collaborati on creatinine equation; units of measure are mL/min/1.73 m2. Results are only valid for adults (>=18 years) whose serum creatinine is in a steady state. eGFR calculation s are not valid for patients with acute kidney injury and for patients on dialysis. Creatinine- based estimates of kidney function may also be inaccurate in patients with reduced creatinine generation due to decreased muscle mass (e.g., malnutritio n, severe hypoalbumin emia, sarcopenia, chronic neuromuscul ar disease, amputations , severe heart failure or liver disease) and in patients with increased creatinine generation due to increased muscle mass (e.g., muscle builders, anabolic steroids) or increased dietary intake. As drug clearance is proportiona l to total GFR and not GFR indexed to body surface area (BSA), in individuals with a BSA substantial ly different than 1.73 m2, drug dosing should be based on the reported eGFR value de-indexed from BSA by multiplying by the individual' s BSA and dividing by 1.73. CKD is diagnosed based on abnormaliti es of kidney structure or function, present for >3 months, with implication s for health and disease. CKD is classified and staged based on cause, eGFR and albuminuria (quantified as urine albumin to creatinine ratio). An eGFR >60 mL/min/1.73 m2 in the absence of increased urine albumin excretion or structural abnormaliti es does not represent CKD. eGFR CKD Interpretat ion (mL/min/1.7 3 m2) stage >=90 G1 Normal 60-89 G2 Mild decrease 45-59 G3A Mild to moderate decrease 30-44 G3B Moderate to severe decrease 15-29 G4 Severe decrease <15 G5 Kidney failure Vitamin B12 test may not yield results when protein level of sample is too elevated. Ordering Provider: KAYCEE MARTE RA Report Released Date/Time: Apr 12, 2024 01:05 PM Reporting Lab: [address] [address] Performing Lab: [address] [address] [facility] LIPID PROFILE TRIGLYCERID E [MASS/VOLUM E] IN SERUM OR PLASMA 84 mg/dL 0 - 149 04/13 Specimen Type: PLASMA Comment: Estimated Glomerular Filtration Rate (eGFR) calculated using the 2020 Chronic Kidney Disease-Epi demiology (CKD-EPI) Collaborati on creatinine equation; units of measure are mL/min/1.73 m2. Results are only valid for adults (>=18 years) whose serum creatinine is in a steady state. eGFR calculation s are not valid for patients with acute kidney injury and for patients on dialysis. Creatinine- based estimates of kidney function may also be inaccurate in patients with reduced creatinine generation due to decreased muscle mass (e.g., malnutritio n, severe hypoalbumin emia, sarcopenia, chronic neuromuscul ar disease, amputations , severe heart failure or liver disease) and in patients with increased creatinine generation due to increased muscle mass (e.g., muscle builders, anabolic steroids) or increased dietary intake. As drug clearance is proportiona l to total GFR and not GFR indexed to body surface area (BSA), in individuals with a BSA substantial ly different than 1.73 m2, drug dosing should be based on the reported eGFR value de-indexed from BSA by multiplying by the individual' s BSA and dividing by 1.73. CKD is diagnosed based on abnormaliti es of kidney structure or function, present for >3 months, with implication s for health and disease. CKD is classified and staged based on cause, eGFR and albuminuria (quantified as urine albumin to creatinine ratio). An eGFR >60 mL/min/1.73 m2 in the absence of increased urine albumin excretion or structural abnormaliti es does not represent CKD. eGFR CKD Interpretat ion (mL/min/1.7 3 m2) stage >=90 G1 Normal 60-89 G2 Mild decrease 45-59 G3A Mild to moderate decrease 30-44 G3B Moderate to severe decrease 15-29 G4 Severe decrease <15 G5 Kidney failure Vitamin B12 test may not yield results when protein level of sample is too elevated. Ordering Provider: KAYCEE MARTE RA Report Released Date/Time: Apr 12, 2024 01:05 PM Reporting Lab: [facility] [address] [address] Performing Lab: [facility] [address] [address] [facility] LIPID PROFILE CHOLESTEROL IN HDL [MASS/VOLUM E] IN SERUM OR PLASMA 65 mg/dL 40 - 69 04/13 Specimen Type: PLASMA Comment: Estimated Glomerular Filtration Rate (eGFR) calculated using the 2020 Chronic Kidney Disease-Epi demiology (CKD-EPI) Collaborati on creatinine equation; units of measure are mL/min/1.73 m2. Results are only valid for adults (>=18 years) whose serum creatinine is in a steady state. eGFR calculation s are not valid for patients with acute kidney injury and for patients on dialysis. Creatinine- based estimates of kidney function may also be inaccurate in patients with reduced creatinine generation due to decreased muscle mass (e.g., malnutritio n, severe hypoalbumin emia, sarcopenia, chronic neuromuscul ar disease, amputations , severe heart failure or liver disease) and in patients with increased creatinine generation due to increased muscle mass (e.g., muscle builders, anabolic steroids) or increased dietary intake. As drug clearance is proportiona l to total GFR and not GFR indexed to body surface area (BSA), in individuals with a BSA substantial ly different than 1.73 m2, drug dosing should be based on the reported eGFR value de-indexed from BSA by multiplying by the individual' s BSA and dividing by 1.73. CKD is diagnosed based on abnormaliti es of kidney structure or function, present for >3 months, with implication s for health and disease. CKD is classified and staged based on cause, eGFR and albuminuria (quantified as urine albumin to creatinine ratio). An eGFR >60 mL/min/1.73 m2 in the absence of increased urine albumin excretion or structural abnormaliti es does not represent CKD. eGFR CKD Interpretat ion (mL/min/1.7 3 m2) stage >=90 G1 Normal 60-89 G2 Mild decrease 45-59 G3A Mild to moderate decrease 30-44 G3B Moderate to severe decrease 15-29 G4 Severe decrease <15 G5 Kidney failure Vitamin B12 test may not yield results when protein level of sample is too elevated. Ordering Provider: KAYCEE MARTE RA Report Released Date/Time: Apr 12, 2024 01:05 PM Reporting Lab: [facility] [address] [address] Performing Lab: [facility] [address] [address] [facility] LIPID PROFILE CHOLESTEROL IN LDL [MASS/VOLUM E] IN SERUM OR PLASMA BY DIRECT ASSAY 129 mg/dL 0 - 100 04/13 H Specimen Type: PLASMA Comment: Estimated Glomerular Filtration Rate (eGFR) calculated using the 2020 Chronic Kidney Disease-Epi demiology (CKD-EPI) Collaborati on creatinine equation; units of measure are mL/min/1.73 m2. Results are only valid for adults (>=18 years) whose serum creatinine is in a steady state. eGFR calculation s are not valid for patients with acute kidney injury and for patients on dialysis. Creatinine- based estimates of kidney function may also be inaccurate in patients with reduced creatinine generation due to decreased muscle mass (e.g., malnutritio n, severe hypoalbumin emia, sarcopenia, chronic neuromuscul ar disease, amputations , severe heart failure or liver disease) and in patients with increased creatinine generation due to increased muscle mass (e.g., muscle builders, anabolic steroids) or increased dietary intake. As drug clearance is proportiona l to total GFR and not GFR indexed to body surface area (BSA), in individuals with a BSA substantial ly different than 1.73 m2, drug dosing should be based on the reported eGFR value de-indexed from BSA by multiplying by the individual' s BSA and dividing by 1.73. CKD is diagnosed based on abnormaliti es of kidney structure or function, present for >3 months, with implication s for health and disease. CKD is classified and staged based on cause, eGFR and albuminuria (quantified as urine albumin to creatinine ratio). An eGFR >60 mL/min/1.73 m2 in the absence of increased urine albumin excretion or structural abnormaliti es does not represent CKD. eGFR CKD Interpretat ion (mL/min/1.7 3 m2) stage >=90 G1 Normal 60-89 G2 Mild decrease 45-59 G3A Mild to moderate decrease 30-44 G3B Moderate to severe decrease 15-29 G4 Severe decrease <15 G5 Kidney failure Vitamin B12 test may not yield results when protein level of sample is too elevated. Ordering Provider: KAYCEE MARTE RA Report Released Date/Time: Apr 12, 2024 01:05 PM Reporting Lab: [facility] [address] [address] Performing Lab: [facility] [address] [address] [facility] GLYCOHEMO GLOBIN HEMOGLOBIN A1C/HEMOGLO BIN.TOTAL IN BLOOD BY HPLC 6.7 4.4 - 6.4 04/13 H Specimen Type: BLOOD Comment: [employer] guidelines for A1c interpretat ion: Glycemic control targets are based on Shared Decision Making between clinicians and patients. Criteria used to establish an A1c target recommendat ion can be found at https://www .[place].gov/arlin lityandpati entsafety/ and include the use of result accuracy and precision(C V) of the A1c tests clinicians utilize at their own sites of practice. Values obtained from A1C measurement s can vary. For typical A1C assays, a reported value of 7.0 could actually be between 6.72 and 7.28 if measured by a reference method. A reported value of 9.0 could actually be between 8.73 and 9.27. Ref: https://ngs p.org/CAPda ta.asp. The in-house [employer] D-100 analyzer has a historical CV <= 2%. Contact the laboratory for further performance characteris tics of this assay. Ordering Provider: KAYCEE MARTE RA Report Released Date/Time: Apr 12, 2024 01:05 PM Reporting Lab: [address] [address] Performing Lab: [address] [address] [facility] FERRITIN FERRITIN [MASS/VOLUM E] IN SERUM OR PLASMA 89.0 ng/mL 21.8 - 274.7 04/13 Specimen Type: PLASMA Comment: Estimated Glomerular Filtration Rate (eGFR) calculated using the 2020 Chronic Kidney Disease-Epi demiology (CKD-EPI) Collaborati on creatinine equation; units of measure are mL/min/1.73 m2. Results are only valid for adults (>=18 years) whose serum creatinine is in a steady state. eGFR calculation s are not valid for patients with acute kidney injury and for patients on dialysis. Creatinine- based estimates of kidney function may also be inaccurate in patients with reduced creatinine generation due to decreased muscle mass (e.g., malnutritio n, severe hypoalbumin emia, sarcopenia, chronic neuromuscul ar disease, amputations , severe heart failure or liver disease) and in patients with increased creatinine generation due to increased muscle mass (e.g., muscle builders, anabolic steroids) or increased dietary intake. As drug clearance is proportiona l to total GFR and not GFR indexed to body surface area (BSA), in individuals with a BSA substantial ly different than 1.73 m2, drug dosing should be based on the reported eGFR value de-indexed from BSA by multiplying by the individual' s BSA and dividing by 1.73. CKD is diagnosed based on abnormaliti es of kidney structure or function, present for >3 months, with implication s for health and disease. CKD is classified and staged based on cause, eGFR and albuminuria (quantified as urine albumin to creatinine ratio). An eGFR >60 mL/min/1.73 m2 in the absence of increased urine albumin excretion or structural abnormaliti es does not represent CKD. eGFR CKD Interpretat ion (mL/min/1.7 3 m2) stage >=90 G1 Normal 60-89 G2 Mild decrease 45-59 G3A Mild to moderate decrease 30-44 G3B Moderate to severe decrease 15-29 G4 Severe decrease <15 G5 Kidney failure Ordering Provider: KAYCEE MARTE RA Report Released Date/Time: Apr 12, 2024 01:05 PM Reporting Lab: [address] [address] Performing Lab: [address] [address] [facility] URIC ACID URATE [MASS/VOLUM E] IN SERUM OR PLASMA 6.0 mg/dL 3.5 - 7.2 04/13 Specimen Type: PLASMA Comment: Estimated Glomerular Filtration Rate (eGFR) calculated using the 2020 Chronic Kidney Disease-Epi demiology (CKD-EPI) Collaborati on creatinine equation; units of measure are mL/min/1.73 m2. Results are only valid for adults (>=18 years) whose serum creatinine is in a steady state. eGFR calculation s are not valid for patients with acute kidney injury and for patients on dialysis. Creatinine- based estimates of kidney function may also be inaccurate in patients with reduced creatinine generation due to decreased muscle mass (e.g., malnutritio n, severe hypoalbumin emia, sarcopenia, chronic neuromuscul ar disease, amputations , severe heart failure or liver disease) and in patients with increased creatinine generation due to increased muscle mass (e.g., muscle builders, anabolic steroids) or increased dietary intake. As drug clearance is proportiona l to total GFR and not GFR indexed to body surface area (BSA), in individuals with a BSA substantial ly different than 1.73 m2, drug dosing should be based on the reported eGFR value de-indexed from BSA by multiplying by the individual' s BSA and dividing by 1.73. CKD is diagnosed based on abnormaliti es of kidney structure or function, present for >3 months, with implication s for health and disease. CKD is classified and staged based on cause, eGFR and albuminuria (quantified as urine albumin to creatinine ratio). An eGFR >60 mL/min/1.73 m2 in the absence of increased urine albumin excretion or structural abnormaliti es does not represent CKD. eGFR CKD Interpretat ion (mL/min/1.7 3 m2) stage >=90 G1 Normal 60-89 G2 Mild decrease 45-59 G3A Mild to moderate decrease 30-44 G3B Moderate to severe decrease 15-29 G4 Severe decrease <15 G5 Kidney failure Ordering Provider: KAYCEE MARTE RA Report Released Date/Time: Apr 12, 2024 01:05 PM Reporting Lab: [facility] [address] [address] Performing Lab: [facility] [address] [address] [facility] B12 VITAMIN COBALAMIN (VITAMIN B12) [MASS/VOLUM E] IN SERUM OR PLASMA 364 pg/mL 213 - 816 04/13 Specimen Type: PLASMA Comment: Estimated Glomerular Filtration Rate (eGFR) calculated using the 2020 Chronic Kidney Disease-Epi demiology (CKD-EPI) Collaborati on creatinine equation; units of measure are mL/min/1.73 m2. Results are only valid for adults (>=18 years) whose serum creatinine is in a steady state. eGFR calculation s are not valid for patients with acute kidney injury and for patients on dialysis. Creatinine- based estimates of kidney function may also be inaccurate in patients with reduced creatinine generation due to decreased muscle mass (e.g., malnutritio n, severe hypoalbumin emia, sarcopenia, chronic neuromuscul ar disease, amputations , severe heart failure or liver disease) and in patients with increased creatinine generation due to increased muscle mass (e.g., muscle builders, anabolic steroids) or increased dietary intake. As drug clearance is proportiona l to total GFR and not GFR indexed to body surface area (BSA), in individuals with a BSA substantial ly different than 1.73 m2, drug dosing should be based on the reported eGFR value de-indexed from BSA by multiplying by the individual' s BSA and dividing by 1.73. CKD is diagnosed based on abnormaliti es of kidney structure or function, present for >3 months, with implication s for health and disease. CKD is classified and staged based on cause, eGFR and albuminuria (quantified as urine albumin to creatinine ratio). An eGFR >60 mL/min/1.73 m2 in the absence of increased urine albumin excretion or structural abnormaliti es does not represent CKD. eGFR CKD Interpretat ion (mL/min/1.7 3 m2) stage >=90 G1 Normal 60-89 G2 Mild decrease 45-59 G3A Mild to moderate decrease 30-44 G3B Moderate to severe decrease 15-29 G4 Severe decrease <15 G5 Kidney failure Vitamin B12 test may not yield results when protein level of sample is too elevated. Ordering Provider: KAYCEE MARTE RA Report Released Date/Time: Apr 12, 2024 01:05 PM Reporting Lab: [address] [address] Performing Lab: [address] [address] [facility] 25-OH VITAMIN D 25-HYDROXYV ITAMIN D3 [MASS/VOLUM E] IN SERUM OR PLASMA 52.9 ng/mL 20.0 - 50.0 04/13 H Specimen Type: SERUM Comment: The National Institutes of Health (NIH) recommendat ions state: <12 ng/mL - Deficient 20 - 50 ng/mL - Optimal Levels - adequate for most people. >50 ng/mL - Increased risk of hypercalciu jamie/other health problems - clinical correlation is required. These reference ranges represent clinical decision values rather than population- based reference values. Ordering Provider: KAYCEE MARTE RA Report Released Date/Time: Apr 12, 2024 01:05 PM Reporting Lab: [address] [address] Performing Lab: [address] [address] [facility] PANEL 5 CREATININE [MASS/VOLUM E] IN SERUM OR PLASMA 1.43 mg/dL 0.72 - 1.25 04/13 H Specimen Type: PLASMA Comment: Estimated Glomerular Filtration Rate (eGFR) calculated using the 2020 Chronic Kidney Disease-Epi demiology (CKD-EPI) Collaborati on creatinine equation; units of measure are mL/min/1.73 m2. Results are only valid for adults (>=18 years) whose serum creatinine is in a steady state. eGFR calculation s are not valid for patients with acute kidney injury and for patients on dialysis. Creatinine- based estimates of kidney function may also be inaccurate in patients with reduced creatinine generation due to decreased muscle mass (e.g., malnutritio n, severe hypoalbumin emia, sarcopenia, chronic neuromuscul ar disease, amputations , severe heart failure or liver disease) and in patients with increased creatinine generation due to increased muscle mass (e.g., muscle builders, anabolic steroids) or increased dietary intake. As drug clearance is proportiona l to total GFR and not GFR indexed to body surface area (BSA), in individuals with a BSA substantial ly different than 1.73 m2, drug dosing should be based on the reported eGFR value de-indexed from BSA by multiplying by the individual' s BSA and dividing by 1.73. CKD is diagnosed based on abnormaliti es of kidney structure or function, present for >3 months, with implication s for health and disease. CKD is classified and staged based on cause, eGFR and albuminuria (quantified as urine albumin to creatinine ratio). An eGFR >60 mL/min/1.73 m2 in the absence of increased urine albumin excretion or structural abnormaliti es does not represent CKD. eGFR CKD Interpretat ion (mL/min/1.7 3 m2) stage >=90 G1 Normal 60-89 G2 Mild decrease 45-59 G3A Mild to moderate decrease 30-44 G3B Moderate to severe decrease 15-29 G4 Severe decrease <15 G5 Kidney failure Vitamin B12 test may not yield results when protein level of sample is too elevated. Ordering Provider: KAYCEE MARTE RA Report Released Date/Time: Apr 12, 2024 01:05 PM Reporting Lab: [facility] [address] [facility] [address] Performing Lab: [facility] [address] [facility] [phone] [facility] PANEL 5 UREA NITROGEN [MASS/VOLUM E] IN SERUM OR PLASMA 23 mg/dL 04/13 Specimen Type: PLASMA Comment: Estimated Glomerular Filtration Rate (eGFR) calculated using the 2020 Chronic Kidney Disease-Epi demiology (CKD-EPI) Collaborati on creatinine equation; units of measure are mL/min/1.73 m2. Results are only valid for adults (>=18 years) whose serum creatinine is in a steady state. eGFR calculation s are not valid for patients with acute kidney injury and for patients on dialysis. Creatinine- based estimates of kidney function may also be inaccurate in patients with reduced creatinine generation due to decreased muscle mass (e.g., malnutritio n, severe hypoalbumin emia, sarcopenia, chronic neuromuscul ar disease, amputations , severe heart failure or liver disease) and in patients with increased creatinine generation due to increased muscle mass (e.g., muscle builders, anabolic steroids) or increased dietary intake. As drug clearance is proportiona l to total GFR and not GFR indexed to body surface area (BSA), in individuals with a BSA substantial ly different than 1.73 m2, drug dosing should be based on the reported eGFR value de-indexed from BSA by multiplying by the individual' s BSA and dividing by 1.73. CKD is diagnosed based on abnormaliti es of kidney structure or function, present for >3 months, with implication s for health and disease. CKD is classified and staged based on cause, eGFR and albuminuria (quantified as urine albumin to creatinine ratio). An eGFR >60 mL/min/1.73 m2 in the absence of increased urine albumin excretion or structural abnormaliti es does not represent CKD. eGFR CKD Interpretat ion (mL/min/1.7 3 m2) stage >=90 G1 Normal 60-89 G2 Mild decrease 45-59 G3A Mild to moderate decrease 30-44 G3B Moderate to severe decrease 15-29 G4 Severe decrease <15 G5 Kidney failure Vitamin B12 test may not yield results when protein level of sample is too elevated. Ordering Provider: KAYCEE MARTE RA Report Released Date/Time: Apr 12, 2024 01:05 PM Reporting Lab: [facility] [address] [facility] [phone] Performing Lab: [facility] [address] [facility] [phone] [facility] PANEL 5 GLUCOSE [MASS/VOLUM E] IN SERUM OR PLASMA 118 mg/dL 74 - 100 04/13 H Specimen Type: PLASMA Comment: Estimated Glomerular Filtration Rate (eGFR) calculated using the 2020 Chronic Kidney Disease-Epi demiology (CKD-EPI) Collaborati on creatinine equation; units of measure are mL/min/1.73 m2. Results are only valid for adults (>=18 years) whose serum creatinine is in a steady state. eGFR calculation s are not valid for patients with acute kidney injury and for patients on dialysis. Creatinine- based estimates of kidney function may also be inaccurate in patients with reduced creatinine generation due to decreased muscle mass (e.g., malnutritio n, severe hypoalbumin emia, sarcopenia, chronic neuromuscul ar disease, amputations , severe heart failure or liver disease) and in patients with increased creatinine generation due to increased muscle mass (e.g., muscle builders, anabolic steroids) or increased dietary intake. As drug clearance is proportiona l to total GFR and not GFR indexed to body surface area (BSA), in individuals with a BSA substantial ly different than 1.73 m2, drug dosing should be based on the reported eGFR value de-indexed from BSA by multiplying by the individual' s BSA and dividing by 1.73. CKD is diagnosed based on abnormaliti es of kidney structure or function, present for >3 months, with implication s for health and disease. CKD is classified and staged based on cause, eGFR and albuminuria (quantified as urine albumin to creatinine ratio). An eGFR >60 mL/min/1.73 m2 in the absence of increased urine albumin excretion or structural abnormaliti es does not represent CKD. eGFR CKD Interpretat ion (mL/min/1.7 3 m2) stage >=90 G1 Normal 60-89 G2 Mild decrease 45-59 G3A Mild to moderate decrease 30-44 G3B Moderate to severe decrease 15-29 G4 Severe decrease <15 G5 Kidney failure Vitamin B12 test may not yield results when protein level of sample is too elevated. Ordering Provider: KAYCEE MARTE RA Report Released Date/Time: Apr 12, 2024 01:05 PM Reporting [facility]: [facility] [address] [address] Performing Lab: [facility] [address] [address] [facility] PANEL 5 SODIUM [MOLES/VOLU ME] IN SERUM OR PLASMA 142 mmol/L 136 - 145 04/13 Specimen Type: PLASMA Comment: Estimated Glomerular Filtration Rate (eGFR) calculated using the 2020 Chronic Kidney Disease-Epi demiology (CKD-EPI) Collaborati on creatinine equation; units of measure are mL/min/1.73 m2. Results are only valid for adults (>=18 years) whose serum creatinine is in a steady state. eGFR calculation s are not valid for patients with acute kidney injury and for patients on dialysis. Creatinine- based estimates of kidney function may also be inaccurate in patients with reduced creatinine generation due to decreased muscle mass (e.g., malnutritio n, severe hypoalbumin emia, sarcopenia, chronic neuromuscul ar disease, amputations , severe heart failure or liver disease) and in patients with increased creatinine generation due to increased muscle mass (e.g., muscle builders, anabolic steroids) or increased dietary intake. As drug clearance is proportiona l to total GFR and not GFR indexed to body surface area (BSA), in individuals with a BSA substantial ly different than 1.73 m2, drug dosing should be based on the reported eGFR value de-indexed from BSA by multiplying by the individual' s BSA and dividing by 1.73. CKD is diagnosed based on abnormaliti es of kidney structure or function, present for >3 months, with implication s for health and disease. CKD is classified and staged based on cause, eGFR and albuminuria (quantified as urine albumin to creatinine ratio). An eGFR >60 mL/min/1.73 m2 in the absence of increased urine albumin excretion or structural abnormaliti es does not represent CKD. eGFR CKD Interpretat ion (mL/min/1.7 3 m2) stage >=90 G1 Normal 60-89 G2 Mild decrease 45-59 G3A Mild to moderate decrease 30-44 G3B Moderate to severe decrease 15-29 G4 Severe decrease <15 G5 Kidney failure Vitamin B12 test may not yield results when protein level of sample is too elevated. Ordering Provider: KAYCEE MARTE RA Report Released Date/Time: Apr 12, 2024 01:05 PM Reporting Lab: [facility] [address] [place] [phone] Performing Lab: PATY[facility]winder [facility] [address] [address] [facility] PANEL 5 POTASSIUM [MOLES/VOLU ME] IN SERUM OR PLASMA 4.4 mmol/L 3.5 - 5.1 04/13 Specimen Type: PLASMA Comment: Estimated Glomerular Filtration Rate (eGFR) calculated using the 2020 Chronic Kidney Disease-Epi demiology (CKD-EPI) Collaborati on creatinine equation; units of measure are mL/min/1.73 m2. Results are only valid for adults (>=18 years) whose serum creatinine is in a steady state. eGFR calculation s are not valid for patients with acute kidney injury and for patients on dialysis. Creatinine- based estimates of kidney function may also be inaccurate in patients with reduced creatinine generation due to decreased muscle mass (e.g., malnutritio n, severe hypoalbumin emia, sarcopenia, chronic neuromuscul ar disease, amputations , severe heart failure or liver disease) and in patients with increased creatinine generation due to increased muscle mass (e.g., muscle builders, anabolic steroids) or increased dietary intake. As drug clearance is proportiona l to total GFR and not GFR indexed to body surface area (BSA), in individuals with a BSA substantial ly different than 1.73 m2, drug dosing should be based on the reported eGFR value de-indexed from BSA by multiplying by the individual' s BSA and dividing by 1.73. CKD is diagnosed based on abnormaliti es of kidney structure or function, present for >3 months, with implication s for health and disease. CKD is classified and staged based on cause, eGFR and albuminuria (quantified as urine albumin to creatinine ratio). An eGFR >60 mL/min/1.73 m2 in the absence of increased urine albumin excretion or structural abnormaliti es does not represent CKD. eGFR CKD Interpretat ion (mL/min/1.7 3 m2) stage >=90 G1 Normal 60-89 G2 Mild decrease 45-59 G3A Mild to moderate decrease 30-44 G3B Moderate to severe decrease 15-29 G4 Severe decrease <15 G5 Kidney failure Vitamin B12 test may not yield results when protein level of sample is too elevated. Ordering Provider: KAYCEE MARTE RA Report Released Date/Time: Apr 12, 2024 01:05 PM Reporting Lab: [facility] [address] [address] Performing Lab: [facility] [address] [phone] [facility] PANEL 5 CHLORIDE [MOLES/VOLU ME] IN SERUM OR PLASMA 110 mmol/L 98 - 107 04/13 H Specimen Type: PLASMA Comment: Estimated Glomerular Filtration Rate (eGFR) calculated using the 2020 Chronic Kidney Disease-Epi demiology (CKD-EPI) Collaborati on creatinine equation; units of measure are mL/min/1.73 m2. Results are only valid for adults (>=18 years) whose serum creatinine is in a steady state. eGFR calculation s are not valid for patients with acute kidney injury and for patients on dialysis. Creatinine- based estimates of kidney function may also be inaccurate in patients with reduced creatinine generation due to decreased muscle mass (e.g., malnutritio n, severe hypoalbumin emia, sarcopenia, chronic neuromuscul ar disease, amputations , severe heart failure or liver disease) and in patients with increased creatinine generation due to increased muscle mass (e.g., muscle builders, anabolic steroids) or increased dietary intake. As drug clearance is proportiona l to total GFR and not GFR indexed to body surface area (BSA), in individuals with a BSA substantial ly different than 1.73 m2, drug dosing should be based on the reported eGFR value de-indexed from BSA by multiplying by the individual' s BSA and dividing by 1.73. CKD is diagnosed based on abnormaliti es of kidney structure or function, present for >3 months, with implication s for health and disease. CKD is classified and staged based on cause, eGFR and albuminuria (quantified as urine albumin to creatinine ratio). An eGFR >60 mL/min/1.73 m2 in the absence of increased urine albumin excretion or structural abnormaliti es does not represent CKD. eGFR CKD Interpretat ion (mL/min/1.7 3 m2) stage >=90 G1 Normal 60-89 G2 Mild decrease 45-59 G3A Mild to moderate decrease 30-44 G3B Moderate to severe decrease 15-29 G4 Severe decrease <15 G5 Kidney failure Vitamin B12 test may not yield results when protein level of sample is too elevated. Ordering Provider: KAYCEE MARTE RA Report Released Date/Time: Apr 12, 2024 01:05 PM Reporting Lab: [facility] [address] [address] Performing Lab: [facility] [address] [address] [facility] PANEL 5 CARBON DIOXIDE, TOTAL [MOLES/VOLU ME] IN SERUM OR PLASMA 26 mmol/L 22 - 29 04/13 Specimen Type: PLASMA Comment: Estimated Glomerular Filtration Rate (eGFR) calculated using the 2020 Chronic Kidney Disease-Epi demiology (CKD-EPI) Collaborati on creatinine equation; units of measure are mL/min/1.73 m2. Results are only valid for adults (>=18 years) whose serum creatinine is in a steady state. eGFR calculation s are not valid for patients with acute kidney injury and for patients on dialysis. Creatinine- based estimates of kidney function may also be inaccurate in patients with reduced creatinine generation due to decreased muscle mass (e.g., malnutritio n, severe hypoalbumin emia, sarcopenia, chronic neuromuscul ar disease, amputations , severe heart failure or liver disease) and in patients with increased creatinine generation due to increased muscle mass (e.g., muscle builders, anabolic steroids) or increased dietary intake. As drug clearance is proportiona l to total GFR and not GFR indexed to body surface area (BSA), in individuals with a BSA substantial ly different than 1.73 m2, drug dosing should be based on the reported eGFR value de-indexed from BSA by multiplying by the individual' s BSA and dividing by 1.73. CKD is diagnosed based on abnormaliti es of kidney structure or function, present for >3 months, with implication s for health and disease. CKD is classified and staged based on cause, eGFR and albuminuria (quantified as urine albumin to creatinine ratio). An eGFR >60 mL/min/1.73 m2 in the absence of increased urine albumin excretion or structural abnormaliti es does not represent CKD. eGFR CKD Interpretat ion (mL/min/1.7 3 m2) stage >=90 G1 Normal 60-89 G2 Mild decrease 45-59 G3A Mild to moderate decrease 30-44 G3B Moderate to severe decrease 15-29 G4 Severe decrease <15 G5 Kidney failure Vitamin B12 test may not yield results when protein level of sample is too elevated. Ordering Provider: KAYCEE MARTE RA Report Released Date/Time: Apr 12, 2024 01:05 PM Reporting Lab: [facility] [address] [address] Performing Lab: [facility] [address] [address] [facility] PANEL 5 CALCIUM [MASS/VOLUM E] IN SERUM OR PLASMA 10.1 mg/dL 8.4 - 10.2 04/13 Specimen Type: PLASMA Comment: Estimated Glomerular Filtration Rate (eGFR) calculated using the 2020 Chronic Kidney Disease-Epi demiology (CKD-EPI) Collaborati on creatinine equation; units of measure are mL/min/1.73 m2. Results are only valid for adults (>=18 years) whose serum creatinine is in a steady state. eGFR calculation s are not valid for patients with acute kidney injury and for patients on dialysis. Creatinine- based estimates of kidney function may also be inaccurate in patients with reduced creatinine generation due to decreased muscle mass (e.g., malnutritio n, severe hypoalbumin emia, sarcopenia, chronic neuromuscul ar disease, amputations , severe heart failure or liver disease) and in patients with increased creatinine generation due to increased muscle mass (e.g., muscle builders, anabolic steroids) or increased dietary intake. As drug clearance is proportiona l to total GFR and not GFR indexed to body surface area (BSA), in individuals with a BSA substantial ly different than 1.73 m2, drug dosing should be based on the reported eGFR value de-indexed from BSA by multiplying by the individual' s BSA and dividing by 1.73. CKD is diagnosed based on abnormaliti es of kidney structure or function, present for >3 months, with implication s for health and disease. CKD is classified and staged based on cause, eGFR and albuminuria (quantified as urine albumin to creatinine ratio). An eGFR >60 mL/min/1.73 m2 in the absence of increased urine albumin excretion or structural abnormaliti es does not represent CKD. eGFR CKD Interpretat ion (mL/min/1.7 3 m2) stage >=90 G1 Normal 60-89 G2 Mild decrease 45-59 G3A Mild to moderate decrease 30-44 G3B Moderate to severe decrease 15-29 G4 Severe decrease <15 G5 Kidney failure Vitamin B12 test may not yield results when protein level of sample is too elevated. Ordering Provider: KAYCEE MARTE RA Report Released Date/Time: Apr 12, 2024 01:05 PM Reporting Lab: [facility] [address] [address] Performing Lab: [facility] [address] [address] [facility] PANEL 5 PROTEIN [MASS/VOLUM E] IN SERUM OR PLASMA 7.2 g/dL 6.4 - 8.3 04/13 Specimen Type: PLASMA Comment: Estimated Glomerular Filtration Rate (eGFR) calculated using the 2020 Chronic Kidney Disease-Epi demiology (CKD-EPI) Collaborati on creatinine equation; units of measure are mL/min/1.73 m2. Results are only valid for adults (>=18 years) whose serum creatinine is in a steady state. eGFR calculation s are not valid for patients with acute kidney injury and for patients on dialysis. Creatinine- based estimates of kidney function may also be inaccurate in patients with reduced creatinine generation due to decreased muscle mass (e.g., malnutritio n, severe hypoalbumin emia, sarcopenia, chronic neuromuscul ar disease, amputations , severe heart failure or liver disease) and in patients with increased creatinine generation due to increased muscle mass (e.g., muscle builders, anabolic steroids) or increased dietary intake. As drug clearance is proportiona l to total GFR and not GFR indexed to body surface area (BSA), in individuals with a BSA substantial ly different than 1.73 m2, drug dosing should be based on the reported eGFR value de-indexed from BSA by multiplying by the individual' s BSA and dividing by 1.73. CKD is diagnosed based on abnormaliti es of kidney structure or function, present for >3 months, with implication s for health and disease. CKD is classified and staged based on cause, eGFR and albuminuria (quantified as urine albumin to creatinine ratio). An eGFR >60 mL/min/1.73 m2 in the absence of increased urine albumin excretion or structural abnormaliti es does not represent CKD. eGFR CKD Interpretat ion (mL/min/1.7 3 m2) stage >=90 G1 Normal 60-89 G2 Mild decrease 45-59 G3A Mild to moderate decrease 30-44 G3B Moderate to severe decrease 15-29 G4 Severe decrease <15 G5 Kidney failure Vitamin B12 test may not yield results when protein level of sample is too elevated. Ordering Provider: KAYCEE MARTE RA Report Released Date/Time: Apr 12, 2024 01:05 PM Reporting Lab: [facility] [address] [address] Performing Lab: [facility] [address] [address] [facility] PANEL 5 ALBUMIN [MASS/VOLUM E] IN SERUM OR PLASMA 4.2 g/dL 3.5 - 5.2 04/13 Specimen Type: PLASMA Comment: Estimated Glomerular Filtration Rate (eGFR) calculated using the 2020 Chronic Kidney Disease-Epi demiology (CKD-EPI) Collaborati on creatinine equation; units of measure are mL/min/1.73 m2. Results are only valid for adults (>=18 years) whose serum creatinine is in a steady state. eGFR calculation s are not valid for patients with acute kidney injury and for patients on dialysis. Creatinine- based estimates of kidney function may also be inaccurate in patients with reduced creatinine generation due to decreased muscle mass (e.g., malnutritio n, severe hypoalbumin emia, sarcopenia, chronic neuromuscul ar disease, amputations , severe heart failure or liver disease) and in patients with increased creatinine generation due to increased muscle mass (e.g., muscle builders, anabolic steroids) or increased dietary intake. As drug clearance is proportiona l to total GFR and not GFR indexed to body surface area (BSA), in individuals with a BSA substantial ly different than 1.73 m2, drug dosing should be based on the reported eGFR value de-indexed from BSA by multiplying by the individual' s BSA and dividing by 1.73. CKD is diagnosed based on abnormaliti es of kidney structure or function, present for >3 months, with implication s for health and disease. CKD is classified and staged based on cause, eGFR and albuminuria (quantified as urine albumin to creatinine ratio). An eGFR >60 mL/min/1.73 m2 in the absence of increased urine albumin excretion or structural abnormaliti es does not represent CKD. eGFR CKD Interpretat ion (mL/min/1.7 3 m2) stage >=90 G1 Normal 60-89 G2 Mild decrease 45-59 G3A Mild to moderate decrease 30-44 G3B Moderate to severe decrease 15-29 G4 Severe decrease <15 G5 Kidney failure Vitamin B12 test may not yield results when protein level of sample is too elevated. Ordering Provider: KAYCEE MARTE RA Report Released Date/Time: Apr 12, 2024 01:05 PM Reporting Lab: [facility] [place] [id number] [facility] [address] Performing Lab: [facility] [place] [address] [facility] [address] [facility] PANEL 5 BILIRUBIN.T OTAL [MASS/VOLUM E] IN SERUM OR PLASMA 0.6 mg/dL 0.2 - 1.2 04/13 Specimen Type: PLASMA Comment: Estimated Glomerular Filtration Rate (eGFR) calculated using the 2020 Chronic Kidney Disease-Epi demiology (CKD-EPI) Collaborati on creatinine equation; units of measure are mL/min/1.73 m2. Results are only valid for adults (>=18 years) whose serum creatinine is in a steady state. eGFR calculation s are not valid for patients with acute kidney injury and for patients on dialysis. Creatinine- based estimates of kidney function may also be inaccurate in patients with reduced creatinine generation due to decreased muscle mass (e.g., malnutritio n, severe hypoalbumin emia, sarcopenia, chronic neuromuscul ar disease, amputations , severe heart failure or liver disease) and in patients with increased creatinine generation due to increased muscle mass (e.g., muscle builders, anabolic steroids) or increased dietary intake. As drug clearance is proportiona l to total GFR and not GFR indexed to body surface area (BSA), in individuals with a BSA substantial ly different than 1.73 m2, drug dosing should be based on the reported eGFR value de-indexed from BSA by multiplying by the individual' s BSA and dividing by 1.73. CKD is diagnosed based on abnormaliti es of kidney structure or function, present for >3 months, with implication s for health and disease. CKD is classified and staged based on cause, eGFR and albuminuria (quantified as urine albumin to creatinine ratio). An eGFR >60 mL/min/1.73 m2 in the absence of increased urine albumin excretion or structural abnormaliti es does not represent CKD. eGFR CKD Interpretat ion (mL/min/1.7 3 m2) stage >=90 G1 Normal 60-89 G2 Mild decrease 45-59 G3A Mild to moderate decrease 30-44 G3B Moderate to severe decrease 15-29 G4 Severe decrease <15 G5 Kidney failure Vitamin B12 test may not yield results when protein level of sample is too elevated. Ordering Provider: KAYCEE MARTE RA Report Released Date/Time: Apr 12, 2024 01:05 PM Reporting Lab: [facility] [address] [address] Performing Lab: [facility] [address] [address] [facility] PANEL 5 ASPARTATE AMINOTRANSF ERASE [ENZYMATIC ACTIVITY/VO LUME] IN SERUM OR PLASMA 19 U/L 5 - 34 04/13 Specimen Type: PLASMA Comment: Estimated Glomerular Filtration Rate (eGFR) calculated using the 2020 Chronic Kidney Disease-Epi demiology (CKD-EPI) Collaborati on creatinine equation; units of measure are mL/min/1.73 m2. Results are only valid for adults (>=18 years) whose serum creatinine is in a steady state. eGFR calculation s are not valid for patients with acute kidney injury and for patients on dialysis. Creatinine- based estimates of kidney function may also be inaccurate in patients with reduced creatinine generation due to decreased muscle mass (e.g., malnutritio n, severe hypoalbumin emia, sarcopenia, chronic neuromuscul ar disease, amputations , severe heart failure or liver disease) and in patients with increased creatinine generation due to increased muscle mass (e.g., muscle builders, anabolic steroids) or increased dietary intake. As drug clearance is proportiona l to total GFR and not GFR indexed to body surface area (BSA), in individuals with a BSA substantial ly different than 1.73 m2, drug dosing should be based on the reported eGFR value de-indexed from BSA by multiplying by the individual' s BSA and dividing by 1.73. CKD is diagnosed based on abnormaliti es of kidney structure or function, present for >3 months, with implication s for health and disease. CKD is classified and staged based on cause, eGFR and albuminuria (quantified as urine albumin to creatinine ratio). An eGFR >60 mL/min/1.73 m2 in the absence of increased urine albumin excretion or structural abnormaliti es does not represent CKD. eGFR CKD Interpretat ion (mL/min/1.7 3 m2) stage >=90 G1 Normal 60-89 G2 Mild decrease 45-59 G3A Mild to moderate decrease 30-44 G3B Moderate to severe decrease 15-29 G4 Severe decrease <15 G5 Kidney failure Vitamin B12 test may not yield results when protein level of sample is too elevated. Ordering Provider: KAYCEE MARTE RA Report Released Date/Time: Apr 12, 2024 01:05 PM Reporting Lab: [address] [address] Performing Lab: [facility] [address] [place] [phone] [facility] PANEL 5 ALANINE AMINOTRANSF ERASE [ENZYMATIC ACTIVITY/VO LUME] IN SERUM OR PLASMA 19 U/L 0 - 55 04/13 Specimen Type: PLASMA Comment: Estimated Glomerular Filtration Rate (eGFR) calculated using the 2020 Chronic Kidney Disease-Epi demiology (CKD-EPI) Collaborati on creatinine equation; units of measure are mL/min/1.73 m2. Results are only valid for adults (>=18 years) whose serum creatinine is in a steady state. eGFR calculation s are not valid for patients with acute kidney injury and for patients on dialysis. Creatinine- based estimates of kidney function may also be inaccurate in patients with reduced creatinine generation due to decreased muscle mass (e.g., malnutritio n, severe hypoalbumin emia, sarcopenia, chronic neuromuscul ar disease, amputations , severe heart failure or liver disease) and in patients with increased creatinine generation due to increased muscle mass (e.g., muscle builders, anabolic steroids) or increased dietary intake. As drug clearance is proportiona l to total GFR and not GFR indexed to body surface area (BSA), in individuals with a BSA substantial ly different than 1.73 m2, drug dosing should be based on the reported eGFR value de-indexed from BSA by multiplying by the individual' s BSA and dividing by 1.73. CKD is diagnosed based on abnormaliti es of kidney structure or function, present for >3 months, with implication s for health and disease. CKD is classified and staged based on cause, eGFR and albuminuria (quantified as urine albumin to creatinine ratio). An eGFR >60 mL/min/1.73 m2 in the absence of increased urine albumin excretion or structural abnormaliti es does not represent CKD. eGFR CKD Interpretat ion (mL/min/1.7 3 m2) stage >=90 G1 Normal 60-89 G2 Mild decrease 45-59 G3A Mild to moderate decrease 30-44 G3B Moderate to severe decrease 15-29 G4 Severe decrease <15 G5 Kidney failure Vitamin B12 test may not yield results when protein level of sample is too elevated. Ordering Provider: KAYCEE MARTE RA Report Released Date/Time: Apr 12, 2024 01:05 PM Reporting Lab: [facility] [address] [address] Performing Lab: [facility] [address] [address] [facility] PANEL 5 ANION GAP 3 IN SERUM OR PLASMA 6 meq/L 3 - 19 04/13 Specimen Type: PLASMA Comment: Estimated Glomerular Filtration Rate (eGFR) calculated using the 2020 Chronic Kidney Disease-Epi demiology (CKD-EPI) Collaborati on creatinine equation; units of measure are mL/min/1.73 m2. Results are only valid for adults (>=18 years) whose serum creatinine is in a steady state. eGFR calculation s are not valid for patients with acute kidney injury and for patients on dialysis. Creatinine- based estimates of kidney function may also be inaccurate in patients with reduced creatinine generation due to decreased muscle mass (e.g., malnutritio n, severe hypoalbumin emia, sarcopenia, chronic neuromuscul ar disease, amputations , severe heart failure or liver disease) and in patients with increased creatinine generation due to increased muscle mass (e.g., muscle builders, anabolic steroids) or increased dietary intake. As drug clearance is proportiona l to total GFR and not GFR indexed to body surface area (BSA), in individuals with a BSA substantial ly different than 1.73 m2, drug dosing should be based on the reported eGFR value de-indexed from BSA by multiplying by the individual' s BSA and dividing by 1.73. CKD is diagnosed based on abnormaliti es of kidney structure or function, present for >3 months, with implication s for health and disease. CKD is classified and staged based on cause, eGFR and albuminuria (quantified as urine albumin to creatinine ratio). An eGFR >60 mL/min/1.73 m2 in the absence of increased urine albumin excretion or structural abnormaliti es does not represent CKD. eGFR CKD Interpretat ion (mL/min/1.7 3 m2) stage >=90 G1 Normal 60-89 G2 Mild decrease 45-59 G3A Mild to moderate decrease 30-44 G3B Moderate to severe decrease 15-29 G4 Severe decrease <15 G5 Kidney failure Vitamin B12 test may not yield results when protein level of sample is too elevated. Ordering Provider: KAYCEE MARTE RA Report Released Date/Time: Apr 12, 2024 01:05 PM Reporting Lab: [facility] [address] [address] Performing Lab: [facility] [address] [address] [facility] PANEL 5 ALKALINE PHOSPHATASE [ENZYMATIC ACTIVITY/VO LUME] IN SERUM OR PLASMA 79 U/L 40 - 150 04/13 Specimen Type: PLASMA Comment: Estimated Glomerular Filtration Rate (eGFR) calculated using the 2020 Chronic Kidney Disease-Epi demiology (CKD-EPI) Collaborati on creatinine equation; units of measure are mL/min/1.73 m2. Results are only valid for adults (>=18 years) whose serum creatinine is in a steady state. eGFR calculation s are not valid for patients with acute kidney injury and for patients on dialysis. Creatinine- based estimates of kidney function may also be inaccurate in patients with reduced creatinine generation due to decreased muscle mass (e.g., malnutritio n, severe hypoalbumin emia, sarcopenia, chronic neuromuscul ar disease, amputations , severe heart failure or liver disease) and in patients with increased creatinine generation due to increased muscle mass (e.g., muscle builders, anabolic steroids) or increased dietary intake. As drug clearance is proportiona l to total GFR and not GFR indexed to body surface area (BSA), in individuals with a BSA substantial ly different than 1.73 m2, drug dosing should be based on the reported eGFR value de-indexed from BSA by multiplying by the individual' s BSA and dividing by 1.73. CKD is diagnosed based on abnormaliti es of kidney structure or function, present for >3 months, with implication s for health and disease. CKD is classified and staged based on cause, eGFR and albuminuria (quantified as urine albumin to creatinine ratio). An eGFR >60 mL/min/1.73 m2 in the absence of increased urine albumin excretion or structural abnormaliti es does not represent CKD. eGFR CKD Interpretat ion (mL/min/1.7 3 m2) stage >=90 G1 Normal 60-89 G2 Mild decrease 45-59 G3A Mild to moderate decrease 30-44 G3B Moderate to severe decrease 15-29 G4 Severe decrease <15 G5 Kidney failure Vitamin B12 test may not yield results when protein level of sample is too elevated. Ordering Provider: KAYCEE MARTE RA Report Released Date/Time: Apr 12, 2024 01:05 PM Reporting Lab: [facility] [address] [address] Performing Lab: [facility] [address] [address] [facility] PANEL 5 GLOMERULAR FILTRATION RATE/1.73 SQ M.PREDICTED [VOLUME RATE/AREA] IN SERUM, PLASMA OR BLOOD BY CREATININE- BASED FORMULA (CKD-EPI 2020) 53 04/13 Specimen Type: PLASMA Comment: Estimated Glomerular Filtration Rate (eGFR) calculated using the 2020 Chronic Kidney Disease-Epi demiology (CKD-EPI) Collaborati on creatinine equation; units of measure are mL/min/1.73 m2. Results are only valid for adults (>=18 years) whose serum creatinine is in a steady state. eGFR calculation s are not valid for patients with acute kidney injury and for patients on dialysis. Creatinine- based estimates of kidney function may also be inaccurate in patients with reduced creatinine generation due to decreased muscle mass (e.g., malnutritio n, severe hypoalbumin emia, sarcopenia, chronic neuromuscul ar disease, amputations , severe heart failure or liver disease) and in patients with increased creatinine generation due to increased muscle mass (e.g., muscle builders, anabolic steroids) or increased dietary intake. As drug clearance is proportiona l to total GFR and not GFR indexed to body surface area (BSA), in individuals with a BSA substantial ly different than 1.73 m2, drug dosing should be based on the reported eGFR value de-indexed from BSA by multiplying by the individual' s BSA and dividing by 1.73. CKD is diagnosed based on abnormaliti es of kidney structure or function, present for >3 months, with implication s for health and disease. CKD is classified and staged based on cause, eGFR and albuminuria (quantified as urine albumin to creatinine ratio). An eGFR >60 mL/min/1.73 m2 in the absence of increased urine albumin excretion or structural abnormaliti es does not represent CKD. eGFR CKD Interpretat ion (mL/min/1.7 3 m2) stage >=90 G1 Normal 60-89 G2 Mild decrease 45-59 G3A Mild to moderate decrease 30-44 G3B Moderate to severe decrease 15-29 G4 Severe decrease <15 G5 Kidney failure Vitamin B12 test may not yield results when protein level of sample is too elevated. Ordering Provider: KAYCEE MARTE RA Report Released Date/Time: Apr 12, 2024 01:05 PM Reporting Lab: [facility] [address] [address] Performing Lab: [facility] [address] [address] [facility] Vital Signs Combined list of inpatient and outpatient Vital Signs from Department of Defense and Veterans Affairs, ranging from 12 months to all on record, depending upon the facility. Vital Sign Value Date Comments Source WEIGHT 263 06/15/2024 13:39:05 [facility] BMI 35 kg/m2 06/15/2024 13:39:05 [facility] SYSTOLIC BLOOD PRESSURE 108 04/13/2024 11:41:04 [facility] DIASTOLIC BLOOD PRESSURE 71 04/13/2024 11:41:04 [facility] PULSE OXIMETRY 94 04/13/2024 11:41:04 Sergio DAVIS [facility] WEIGHT 264.4 04/13/2024 11:41:04 [facility] BMI 35 kg/m2 04/13/2024 11:41:04 [facility] PAIN 3 04/13/2024 11:41:04 [facility] HEIGHT 73 04/13/2024 11:41:04 [facility] TEMPERATURE 97.9 04/13/2024 11:41:04 HUGH RODRIGUEZ [facility] PULSE 65 04/13/2024 11:41:04 [facility] Encounters Combined list of: 1) Encounters from Department of [facility] Affairs facilities going backup to the last 18 months, not all [place] inpatient encounters are included; 2) Encounters from the Department of [facility] facilities going backup to 280 months. Location Location Details Encounter Type Encounter Number Reason For Visit Attending Provider ADM Date DC Date Status Disposition Source [facility] OFFICE O/P EST MOD 30-39 MIN [id number] Diagnos is: ICD-10- CM E11.22 Type 2 diabete s mellitu s w diabeti c chronic kidney disease AGUILA MARTE 05/18 [place] [facility] Outpatient Encounter [id number] Diagnos is: ICD-10- CM R25.3 Fascicu latROVERTO Conte A 05/19 [place] HC PRO PHONE CALL 5-10 MIN [id number] Diagnos is: ICD-10- CM E78.00 Pure hyperch olester olemia, unspeci fiJAVY Moore S 05/29 [place] [facility] Outpatient Encounter [id number] 06/03 [place] [facility] Outpatient Encounter [id number] 08/04 [place] [facility] Outpatient Encounter [id number] 08/14 [place] Outpatient Encounter [id number] MARBIN STEWARD A 08/14 [place] [facility] HC PRO PHONE CALL 5-10 MIN [id number] Diagnos is: ICD-10- CM K21.9 Gastro- esophag eal reflux disease without esophag itis MCCLOUD 08/14 [place] [facility] Outpatient Encounter [id number] 09/13 [place] [facility] Outpatient Encounter [id number] 12/04 [place] [facility] HC PRO PHONE CALL 5-10 MIN [id number] Diagnos is: ICD-10- CM E78.00 Pure hyperch olester olemia, unspeci fied AUBRIE,ME MAME L 01/10 [place] [facility] Outpatient Encounter [id number] 03/01 [place] [facility] Outpatient Encounter [id number] 04/13 [place] [facility] Outpatient Encounter [id number] 04/13 [place] [facility] OFFICE O/[place] HI 40 MIN [id number] Diagnos is: ICD-10- CM E11.8 Type 2 diabete s mellitu s with unspeci fied complic ations TONEY GOTTI CIA 04/13 [place] [facility] HC PRO PHONE CALL 5-10 MIN [id number] Diagnos is: ICD-10- CM E11.8 Type 2 diabete s mellitu s with unspeci fied complic ations JORGE PECK 05/09 [place] [facility] SELF-MGMT EDUC & TRAIN 1 [place] [id number] Diagnos is: ICD-10- CM M25.561 Pain in right knee Nilesh MATAMOROS URT 05/18 [place] THERAPEUTI C EXERCISES [id number] Diagnos is: ICD-10- CM M25.561 Pain in right knee Nilesh MATAMOROS URT 05/31 [place] [place] [id number] Diagnos is: ICD-10- CM E66.09 Other obesity due to excess calorie s ERVIN PETE HELSergio C 06/15 [place] [facility] Outpatient Encounter [id number] 06/23 [place] HC PRO PHONE CALL 5-10 MIN [id number] Diagnos is: ICD-10- CM E11.22 Type 2 diabete s mellitu s w diabeti c chronic kidney disease AGUILA MARTE 07/01 [place] [facility] Outpatient Encounter [id number] 07/07 [place] PH1 ASSMT&MGMT NQHP 5-10 [id number] Diagnos is: ICD-10- CM N18.30 Chronic kidney disease , stage 3 unspeci JAVY Hicks 07/08 [place] [facility] PH1 ASSMT&MGMT NQHP 5-10 [id number] Diagnos is: ICD-10- CM N18.30 Chronic kidney disease , stage 3 unspeci JAVY Hicks S 07/11 [place] [facility] Outpatient Encounter [id number] 07/22 [place] [facility] Outpatient Encounter [id number] 08/02 [place] [facility] Outpatient Encounter [id number] 08/16 [place] [facility] Outpatient Encounter [id number] 08/19 [place] Outpatient Encounter [id number] 08/19 [place] [facility] Outpatient Encounter [id number] 08/23 [place] ASSMT&MGMT NQHP 5-10 [id number] Diagnos is: ICD-10- CM Z87.442 Persona l history of urinary calculi JAVY GIORDANO 08/23 [place] [facility] Outpatient Encounter [id number] 10/13 [place] [facility] Social History Combined list of available smoking, tobacco, and other social history from Department of Defense and Veterans Affairs facilities. Social History Type Response Date Comment Sourc e Tobacco smoking status SCIS [place]-TO[facility]ACCO FORMER USER 04/13/2024 [facility] History of tobacco use LA-TOBACCO QUIT 15 YRS OR MORE 04/13/2024 [facility] History of tobacco use LA-TOBACCO QUIT 15 YRS OR MORE 05/18/2023 [facility] History of tobacco use LA-TOBACCO FORMER USER 07/18/2021 [facility] History of tobacco use V9 LIFETIME NON-USER OF TOBACCO 09/09/2013 [facility]
--- OUTSIDE RECORDS SUMMARY | 2024-10-18 15:01 | XMS_ITS | Clinical Summary ---
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 Balance/gait along with postural blood pressure, vision and home fall hazards have been assessed. Medications have been reviewed, and recommendations made with regard to contributing factors for future falls. Plan of care: Consideration of vitamin D supplementation along with balance and strength training with consideration for formal physical therapy has been discussed with the patient. - Last Documented On 09/15/2022 9:44AM ; [facility] Edgard presents with physical findings supportive of rotator cuff impingement/tendonitis and shoulder arthritis confirmed with radiographic imaging. We discussed the risks and benefits of a subacromial steroid injection and he agreed to proceed. We will also provide him with a physical therapy order for rotator cuff impingement protocol. Due to his inability to take NSAIDs I'm unable to provide him with a prescription for Meloxicam. We will see him back for a clinical re- evaluation in 3 months. Of note, he is diabetic and his most recent A1C was 7.2. RIGHT: The risks and benefits of a subacromial injection were discussed. I answered all of the patient's questions and they verbally consented to the procedure. The skin of the posterior shoulder over the injection site was prepped with isopropyl alcohol and allowed to dry. Utilizing a sterile needle, I injected 2 cc of betamethasone and 8 cc of 1% lidocaine into the subacromial bursa. The needle was withdrawn and the injection site was dressed with a sterile Band-Aid. The patient tolerated the procedure well without any apparent complication. Post-injection instructions were discussed. - Last Documented On 09/15/2022 9:44AM ; [facility] Pending Tests Order Diagnosis Results Due Ordering P rovider Therapy - Physical Therapy Shoulder 08/11/22 Rolando Rodriguez MD Last Documented On 3 9:44AM ; [facility] Instructions to patient Lose weight Last Documented On 3 8:50AM ; [facility], [facility] Assessments Includes: Assessments from this encounter No Assessments Recorded Instructions Includes: Instructions from this encounter Instructions to patient Lose weight Last Documented On 3 8:50AM ; [facility] Medical Equipment - Implanted Devices Includes: Current Devices No Medical Equipment Recorded Medications Includes: Medications discussed during this encounter and other current Medications Current Medications (continue as prescribed) Lisinopril 10 MG Oral Tablet 08/11/2022 Provider: Diagnosis: Last Documented On 3 11:01AM By Josefina WILSON [facility], [facility] Allopurinol 100 MG Oral Tablet 08/11/2022 Provider: Diagnosis: Last Documented On 3 11:01AM By Josefina WILSON [facility], [facility] Famotidine 10 MG Oral Tablet 08/11/2022 Provider: Diagnosis: Last Documented On 3 11:01AM By Josefina Bowden [facility], [facility] Pantoprazole Sodium 20 MG Oral Tablet Delayed Release 08/11/2022 Provider: Diagnosis: Last Documented On 3 11:02AM [facility] Medications Administered Includes: Administered Medications from this encounter No Administered Medications Recorded Vital Signs Includes: Vital Signs from this encounter Vital Name 08/11/2022 08:56A Blood Pressure Sitting R 135/79 Pulse Rate-Sitting (bpm) 89 Height (in) 72 Weight (lb) 267 Body Mass Index 36.2 Body Surface Area 2.4 Note: bb Last Documented: On 08/11/2022 8:56AM ; [facility], [facility] Results Includes: Results discussed during this encounter No Results Recorded For Specified Dates History of Present Illness Includes: History of Present Illness from this encounter HPI Brian Zheng is a 66 year old male. - Symptoms popping / grinding improves with certain positioning worse at nght when lying down / have to sleep in a chair. - Allergy list reviewed - Problem list reviewed - Medication list reviewed - Previous history of new onset pain 02/2022 Injury is not work related or an automotive accident - Patient pain level from 1-10: 5 - No previous treatment. 66-year-old male presents for an initial evaluation of right shoulder pain. He has a 40-50 year long history of shoulder pain that has recently become more bothersome over the past couple of months. He denies any recent traumatic event to onset his symptoms. He was on Diclofenac for a long period time for his ankylosing spondylitis which he recently discontinued and noticed his shoulder pain increased shortly after. Of note, he had esophageal cancer and had an esophageal resection, his providers don't want him taking any NSAIDs. Social History Description Last Updated Caffeine use 08/11/2022 Last Documented On 3 9:44AM ; [facility], [facility] Recent change in diet Keto diet 08/11/19 23 Last Documented On 3 9:44AM ; [facility], [facility] Tobacco non-user 08/11/2022 Last Documented On 3 9:44AM ; [facility], [facility] Not a current smoker. 08/11/2022 Last Documented On 3 9:44AM ; [facility], [facility] Not exercising regularly 08/11/2022 Last Documented On 3 9:44AM ; [facility], [facility] Not using alcohol 08/11/2022 Last Documented On 3 9:44AM ; [facility], [facility] Not using drugs 08/11/2022 Last Documented On 3 9:44AM ; [facility], [facility] Smoking Status Unknown Procedures and Surgical History Includes: Procedures from this encounter Procedures Code Diagnosis Performing Provider Service L ocation Service Date use of tobacco assessment performed 1000F Last Documented On 3 8:50AM ; [facility] patient screened for future fall risk: documentation of any fall with injury in past year 1100F Last Documented On 3 10:57AM ; [facility], [facility] an X-ray was performed [id number] Last Documented On 3 8:50AM ; [facility], [facility] Surgical History Last Updated History of History of Gallbladder 2022 Last Documented On 3 9:44AM ; [facility], [facility] History of Previous Fractures 08/11/2022 Last Documented On 3 9:44AM ; [facility] Medical History Includes: Medical History addressed during this encounter Description Last Updated History of asthma 08/11/2022 Last Documented On 3 9:44AM ; [facility], [facility] History of diabetes mellitus 08/11/2022 Last Documented On 3 9:44AM ; [facility], [facility] History of Fractures 08/11/2022 Last Documented On 3 9:44AM ; [facility] History of Heartburn / Acid Reflux 08/11 Last Documented On 3 9:44AM ; [facility] History of History of Cancer 08/11/2022 Last Documented On 3 9:44AM ; [facility] History of Hypertension 08/11/2022 Last Documented On 3 9:44AM ; [facility], [facility] History of Kidney Disease 08/11/2022 Last Documented On 3 9:44AM ; [facility] History of Liver Disease 08/11/2022 Last Documented On 3 9:44AM ; [facility] History of Sleep Apnea 08/11/2022 Last Documented On 3 9:44AM ; [facility], [facility] Past Surgical History: esoph arely removed (cancer) / hernia repair / cataract surgery / kidney stone extraction (several times) 08/11/2022 Last Documented On 3 9:44AM ; [facility], [facility] Use of CPAP 08/11/2022 Last Documented On 3 9:44AM ; [facility], [facility] Family History Includes: Family History addressed during this encounter Description Last Updated Diabetes mellitus 08/11/2022 Last Documented On 3 9:44AM ; [facility], [facility] Family history of cancer 08/11/2022 Last Documented On 3 9:44AM ; [facility], [facility] Family history of heart disease 08/11/19 Last Documented On 3 9:44AM ; [facility], [facility] Family history of osteoporosis 3 Last Documented On 3 9:44AM ; [facility], [facility] Family history of rheumatoid arthritis 0 08/11/2022 Last Documented On 3 9:44AM ; [facility], [facility] Family history of systemic hypertension 08/11/2022 Last Documented On 3 9:44AM ; [facility], [facility] Stroke / Seizures 08/11/2022 Last Documented On 3 9:44AM ; [facility], [facility] Review of Systems Includes: Review of Systems from this encounter Systemic: Not feeling tired, no recent weight loss, and no recent weight gain. Head: Headache and sinus pain. Eyes: No vision problems. Cataracts and Glasses/Contacts. No Glaucoma. Otolaryngeal: No hearing loss and no tinnitus. Cardiovascular: No chest pain or discomfort, no palpitations, no Hypertension, and no High Cholesterol. Pulmonary: Daytime asthma symptoms. No chronic cough. Wheezing. Gastrointestinal: Heartburn. No abdominal pain. Indigestion and Acid Reflux. No Peptic Ulcer, no GI Stomach Bleed, and no Ulcers. Endocrine: No hot flashes. Muscle weakness and Diabetes. No Hypothyroid and no Hyperthyroid. Hematologic: No easy bleeding, no tendency for easy bruising, and no Anemia. Musculoskeletal: Arthritis and lower back pain. No soft tissue swelling. Pain localized to one or more joints. Neurological: Dizziness. No convulsions. Numbness. Psychological: No anxiety, no emotional lability, no depression, and no insomnia. Not crying for no reason. Skin: No dry skin. No Ulcers. Scars. No rash. Allergic and Immunologic: Complaint of seasonal allergic reaction. Reviewed on 08-11-2022 Mental Status Includes: Mental Status from this encounter Description No anxiety Functional Status Includes: Functional Status from this encounter No Functional Status Recorded Physical Exam Includes: Physical Exam from this encounter Allergies Includes: Active Allergies Substance Type Reaction Onset Date Resolved Date Statu s Penicillin G Benzathine Allergy Skin Deacon hes / Eruption of skin 08/11/2022 Active Last Documented On 3 11:02AM ; [facility], [facility] Encounters Encounter Provider Location Date Check-In Time Check-Out Time Diagnosis Physician Specified Rolando Rodriguez MD [facility] 08/11/19 23 8:48AM 9:27AM Insurance Includes: Active Insurance Policies Plan Name Member ID Group # Subscriber Relationship Effect ankur Dates 1 - [employer] [id number] Brian Zheng Self 3 - Unknown Clinical Notes Includes: Clinical Notes from this encounter * Progress note Date Encounter Last Documented by 08/11/2022 Physician Specified Last tamraumecaden ott on 09/15/2022; 9:44 AM, Rolando Rodriguez MD; [facility], [facility] Active Problems & Conditions - Joint Pain, Localized in the Right Shoulder Chief Complaint The Chief Complaint is: Right shoulder pain. Referred Here Referred by. History of Present Illness Brian Zheng is a 66 year old male. - Symptoms popping / grinding improves with certain positioning worse at nght when lying down / have to sleep in a chair. - Allergy list reviewed - Problem list reviewed - Medication list reviewed - Previous history of new onset pain 02/2022 Injury is not work related or an automotive accident - Patient pain level from 1-10: 5 - No previous treatment. 66-year-old male presents for an initial evaluation of right shoulder pain. He has a 40-50 year long history of shoulder pain that has recently become more bothersome over the past couple of months. He denies any recent traumatic event to onset his symptoms. He was on Diclofenac for a long period time for his ankylosing spondylitis which he recently discontinued and noticed his shoulder pain increased shortly after. Of note, he had esophageal cancer and had an esophageal resection, his providers don't want him taking any NSAIDs. Current Medication - Allopurinol 100 MG Oral Tablet take as directed 0 days, 0 refills - Famotidine 10 MG Oral Tablet take as directed 0 days, 0 refills - Lisinopril 10 MG Oral Tablet take as directed 0 days, 0 refills - Pantoprazole Sodium 20 MG Oral Tablet Delayed Release take as directed 0 days, 0 refills Past Medical/Surgical History Reported: History of Fractures and Use of CPAP. Diagnoses: Asthma History of Cancer Sleep Apnea Heartburn / Acid Reflux Liver Disease Kidney Disease Hypertension. Diabetes mellitus Procedural: - History of Gallbladder - Previous Fractures Surgical: - Past Surgical History: esophagus removed (cancer) / hernia repair / cataract surgery / kidney stone extraction (several times) Social History Not a current smoker. Current diet: Recent change in diet Keto diet. Caffeine use: Caffeine use. Tobacco use: Tobacco non-user. Alcohol: Not using alcohol. Drug Use: Not using drugs. Habits: Not exercising regularly. Allergies - Penicillin G Benzathine Reaction: Skin Rashes / Eruption of skin Family History Cancer Heart disease Stroke / Seizures Diabetes mellitus Systemic hypertension Osteoporosis Rheumatoid arthritis Review Of Systems Systemic: Not feeling tired, no recent weight loss, and no recent weight gain. Head: Headache and sinus pain. Eyes: No vision problems. Cataracts and Glasses/Contacts. No Glaucoma. Otolaryngeal: No hearing loss and no tinnitus. Cardiovascular: No chest pain or discomfort, no palpitations, no Hypertension, and no High Cholesterol. Pulmonary: Daytime asthma symptoms. No chronic cough. Wheezing. Gastrointestinal: Heartburn. No abdominal pain. Indigestion and Acid Reflux. No Peptic Ulcer, no GI Stomach Bleed, and no Ulcers. Endocrine: No hot flashes. Muscle weakness and Diabetes. No Hypothyroid and no Hyperthyroid. Hematologic: No easy bleeding, no tendency for easy bruising, and no Anemia. Musculoskeletal: Arthritis and lower back pain. No soft tissue swelling. Pain localized to one or more joints. Neurological: Dizziness. No convulsions. Numbness. Psychological: No anxiety, no emotional lability, no depression, and no insomnia. Not crying for no reason. Skin: No dry skin. No Ulcers. Scars. No rash. Allergic and Immunologic: Complaint of seasonal allergic reaction. Reviewed on 08-11-2022 Physical Findings - Vitals taken 08/11/2022 08:56 am bb BP-Sitting R 135/79 mmHg Pulse Rate-Sitting 89 bpm Height 72 in Weight 267 lbs Body Mass Index 36.2 kg/m2 Body Surface Area 2.4 m2 Standard Measurements: - Patient was overweight. RIGHT SHOULDER Range of Motion: Abduction [150] degrees Forward flexion [150] degrees External rotation with arm at side 30 degrees Internal rotation to level of the sacrum Passive Range of Motion: limited by pain Stability: no anterior, no posterior, no inferior laxity Barbra-scapular atrophy Strength: Abduction/Forward flexion [4/5], Internal rotation [5/5], External rotation [4-/5]. Positive Hawkin's Positive Neer's Positive Painting's Negative Speeds Deltoid is contractile. Tests RIGHT SHOULDER X-RAYS (3 VIEWS): glenohumeral and AC joint arthritis Previous Tests Imaging: X-Ray: An X-ray was performed. Counseling/Education - Lose weight Plan StartCited - Other Therapy/Physical Therapy: Shoulder Instructions: See PT order attached EndCited Fall Risk Assessment: This patient has been identified as a fall risk. Balance/gait along with postural blood pressure, vision and home fall hazards have been assessed. Medications have been reviewed, and recommendations made with regard to contributing factors for future falls. Plan of care: Consideration of vitamin D supplementation along with balance and strength training with consideration for formal physical therapy has been discussed with the patient. Edgard presents with physical findings supportive of rotator cuff impingement/tendonitis and shoulder arthritis confirmed with radiographic imaging. We discussed the risks and benefits of a subacromial steroid injection and he agreed to proceed. We will also provide him with a physical therapy order for rotator cuff impingement protocol. Due to his inability to take NSAIDs I'm unable to provide him with a prescription for Meloxicam. We will see him back for a clinical re- evaluation in 3 months. Of note, he is diabetic and his most recent A1C was 7.2. RIGHT: The risks and benefits of a subacromial injection were discussed. I answered all of the patient's questions and they verbally consented to the procedure. The skin of the posterior shoulder over the injection site was prepped with isopropyl alcohol and allowed to dry. Utilizing a sterile needle, I injected 2 cc of betamethasone and 8 cc of 1% lidocaine into the subacromial bursa. The needle was withdrawn and the injection site was dressed with a sterile Band-Aid. The patient tolerated the procedure well without any apparent complication. Post-injection instructions were discussed. Notes Transcribed by Latrell Truong, acting as a scribe for Dr. Rodriguez. This dictation was done with voice recognition software and may contain errors and omissions. Practice Management Use of tobacco assessment performed and patient screened for future fall risk documentation of any fall with injury in past year. Care Team - SPRING TAPIA MD - [employer]INE MECH[employer]IC
--- OUTSIDE RECORDS SUMMARY | 2024-10-18 15:01 | XMS_ITS | Encounter Summary ---
Author Name [facility] Address [address] [place] [address] Care Team Providers Care Vendor Analyst Name Role Phone PATTIE MARTE Primary Care [...] PART A November 03, 2013 PART A [id number] FLAQUITADESIRAE MCCLOUD PATIENT MEDICARE (WNR) MEDICARE (M) PART B November 03, 2013 PART B [id number] DESIRAE MARY PATIENT Selected Encounter This section includes the information on record at [place] for the Encounter. Date/Time Encounter Type Encounter Description Reason Provider Source May 18, 2024 11:30 AM SELF-MGMT EDUC & TRAIN 1 PT PHYSICAL THERAPY ICD-10-CM M25.561 Pain in right knee SASKIA MATAMOROS [facility] Encounter Template Text not used by [place] Assessments - Encounter Diagnoses This section includes the primary and secondary diagnoses documented for the Encounter. Date/Time Primary/Secondary Diagnosis Diagnosis Name Provider Source May 18, 2024 02:06 PM PRIMARY Pain in right knee SASKIA MATAMOROS [facility] Plan of Treatment: Future Appointments (+ 6 months) and Future Tests (+/- 45 days) The Plan of Treatment section includes future care activities for the patient from [facility] [place] [facility] This section includes future appointments and future orders which are active, pending or scheduled. Future Appointments This section includes appointments that were scheduled to occur 6 months from the date of the Encounter, up to a maximum of 20 appointments. The data comes from all [facility]. Appointment Date/Time Appointment Type Appointme nt Facility Name May 31, 2024 02:30 PM AMBULATORY - REHAB MEDICIN E [facility] Jun 15, 2024 01:00 PM AMBULATORY - NONE [facility] Aug 10, 2024 03:30 PM AMBULATORY - NONE [facility] Active, Pending, and Scheduled Orders This section includes a listing of several types of active, pending, and scheduled orders, including clinic medications orders, diagnostic test orders, procedure orders and consult orders; where the start date of the order is 45 days before the date of the Encounter or 45 days after the date of theEncounter. The data comes from all [facility]. Test Date/Time Test Type Test Details Facility Name Apr 13, 2024 12:00 AM Laboratory - Chemi stry Order OCCULT BLOOD FIT X1 SCREEN STOOL FECES SP ONCE [facility] Apr 13, 2024 12:00 AM Laboratory - Chemi stry Order HCV [id number] SP ONCE [facility] Encounter Notes: All associated encounter notes This section contains the clinical notes associated to the Encounter. Date/Time Encounter Note(s) Provider Source May 18, 2024 03:52 PM PHYSICAL MEDICINE REHAB NOTE: LOCAL TITLE: LOWER EXTREMITY FUNCTIONAL SCALE STANDARD TITLE: PHYSICAL MEDICINE REHAB NOTE DATE OF NOTE: MAY 18, 2024@15:52 ENTRY DATE: MAY 18, 2024@15:52:14 AUTHOR: SASKIA MATAMOROSIGNER: URGENCY: STATUS: COMPLETED 1. Any of your usual work, housework, or school activities: 3 - A little bit of difficutly 2. Your usual hobbies, recreational, or sporting activites: 2 - Moderate difficulty 3. Getting into or out of the bath: 2 - Moderate difficulty 4. Walking between rooms: 2 - Moderate difficulty 5. Putting on your shoes or socks: 2 - Moderate difficulty 6. Squattin - Quite a bit of difficulty 7. Lifting an object, like a bag of groceries from the floor: 4 - No difficutly 8. Performing light activities around your home: 4 - No difficutly 9. Performing heavy activities around your home: 2 - Moderate difficulty 10. Getting into or out of a car: 3 - A little bit of difficutly 11. Walking 2 blocks: 1 - Quite a bit of difficulty 12. Walking a mile: 0 - Extreme difficulty or unable to perform activity 13. Going up or down 10 stairs (about 1 flight of stairs): 1 - Quite a bit of difficulty 14. Standing for 1 hour: 0 - Extreme difficulty or unable to perform activity 15. Sitting for 1 hour: 4 - No difficutly 16. Running on even ground: 0 - Extreme difficulty or unable to perform activity 17. Running on uneven ground: 0 - Extreme difficulty or unable to perform activity 18. Making sharp turns while running fast: 0 - Extreme difficulty or unable to perform activity 19. Hoppin - Extreme difficulty or unable to perform activity 20. Rolling over in bed: 2 - Moderate difficulty TOTAL SCORE: LEFS INITIAL SCORE 33 (RAW); 41 (CALCULATED) /debra/ SASKIA MATAMOROS PT Signed: 05/18/2024 15:54 SASKIA MATAMOROS-CDD [facility] May 18, 2024 11:32 AM PHYSICAL THERAPY C ONSULT: LOCAL TITLE: PHYSICAL THERAPY INITIAL & PLAN OF CARE CONSULT RES STANDARD TITLE: PHYSICAL THERAPY CONSULT DATE OF NOTE: MAY 18, 2024@11:32 ENTRY DATE: MAY 18, 2024@11:32:26 AUTHOR: SASKIA MATAMOROS COSIGNER: URGENCY: STATUS: COMPLETED Current PC Provider: PATTIE MARTE Current PC Team: JERRY LEOS Current Pat. Status: Outpatient UCID: [id number] Primary Eligibility: NSC(VERIFIED) Patient Type: NSC OEF/OIF: NO Order Information To Service: PT OUTPATIENT CDD From Service: JULIO LEOS 16-1 Requesting Provider: DINORAH GOMES Service is to be rendered on an OUTPATIENT basis Place: [facility] Urgency: Routine Clinically Ind. Date: Apr 13, 2024 DST ID: Orderable Item: PT OUTPATIENT CDD Consult: Consult Request Provisional Diagnosis: Pain in right Knee(ICD-10-CM M25.561) Reason For Request: #RCT# Special Comments: pls eval/treat this w/right knee pain and swelling. XR ordered DATE OF ENCOUNTER: May 18, 2024 PATIENT NAME: Desirae Mary ([id number]) DIAGNOSIS: Pain in right knee REFERRING PRACTITIONER: Dinorah Gomes SUBJECTIVE: History as written from April 13, 2024 PC PROGRESS NOTE re: Right knee pain: Right Knee Pain: Small meniscal tear about 20 yrs ago. A fall 2 yrs ago (in June) hyperextended while catching self. Want to avoid surgery. Last time this was checked by Ortho said possible arthroscopic debridement. Denies locking, popping. Endorses buckling, giving way last 3 months. Pt. was read the above history and agrees with as written with the following additions/corrections: Pt. states the right knee is about the same as it was in April. Pt. states he feels like all of his joints are falling apart - went in for his hips awhile back and was told it was due to muscle spasms. Pt. states he was given muscle relaxers, but he doesn't like to use them, but states the did help when he has used them (about 3x when he was going to walk). Pt. states he hasn't used NSAIDs for a long time. Pt. states at times the right knee doesn't want to extend the full way. Pt. states about 3 years ago the right knee hyperextended the wrong way , but he indicates pain for the last 20 years ago. Pt. states he was stepping up into his truck about 20 years ago and something popped in the lateral aspect of the right knee and since then it has been loose and sounds like rice crispies . Pt. states 3 years ago he fell due to the knee hyperextending (fell off cat walk of a semi, onto concrete). Pt. denies any recent falls. 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 Self-feeding b. Dressing c. Bathing d. Toileting e. Grooming/hygiene Are you having difficulty getting in and out of the tub or off the toilet? getting in/out of shower. If any difficulties with above self-care tasks, would you have interest in an occupational therapy consultation/evaluation? No Date of injury: chronic, 20 years Mechanism of injury: hyperextension of knee Location of pain/symptoms: posterolateral aspect of right knee Pain/symptom rating (0-10 scale): At best: 0 At worst: 5 Pain/symptom description: burning; wants to give way (knee and hip) Pain is constant/intermittent: intermittent Activities that increase pain/symptom: too much climbing ladder); standing (20 minutes); walking (300 yards) Activities that decrease pain/symptom: sitting with leg supported (under the knee); intermittent compression device Hobbies: piddlin'; fixing things PATIENT GOAL FOR PHYSICAL THERAPY: find out how I can get the knee not to burn and to get rid of the stiffness. be more mobile, be able to stand for longer periods of time. Be able to walk longer distances OBJECTIVE: POSTURE: Symmetrical weight bearing, genu valgum right, slight knee flexion right vs. left; flexed trunk at hips SENSATION: Intact and symmetrical (B) L2-S2 dermatomes to light touch DTRS: unable to elicit (B) L4,S1 DTRS KNEE AROM: RIGHT LEFT Flexion: 123*sl 126 Extension -15* -10 MMTS: RIGHT LEFT Iliopsoas: 5 5 Quadriceps: 5 5 Anterior tibialis 5 5 EHL: 5 5 Gastroc/soleus: 5 5 Hamstrings: 5 5 Hip IR: 5 5 Hip ER: 5 5 Hip abduction: 3 3 Hip adduction: 5 5 Hip extension: 3*hip 3*hip PALPATION: patient denies tenderness to palpation of right knee soft tissues SPECIAL TESTS of RIGHT KNEE Anterior Drawer: negative pain or laxity Posterior Drawer: negative pain or laxity Varus stress: positive lateral and slight medial knee pain, and slight laxity Valgus stress: negative pain or laxity Bounce home: positive pain and rebound Kolton's sign: negative pain without overpressure, slight posterior pain with overpressure. Apley's compression ( in supine): negative pain with IR or ER Patellar glides: negative GAIT: right LE abducts at times, genu valgum ASSESSMENT: Patient was referred for physical therapy with a diagnosis of right knee pain. Objective findings from physical therapy evaluation consistent with referring diagnosis. Patient has fair potential to benefit from treatment in clinical setting to achieve the goals set at the initial evaluation due to chronicity of symptoms. PROBLEM LIST: 1. Pain in right knee at level of 0-5/10 on a 0-10 scale 2. Poor posture in standing - NO GOAL 3. Limited/painful AROM into the following motions: (B) knee extension (pain and decreased AROM); right knee flexion (pain) 4. Limited strength upon MMTs of the following muscle groups: (B) hip abductors and (B) hip extensors. 5. Positive/painful response to the following special tests of the right knee: varus stress test, bounce home test, Kolton's sign. 6. Abnormal gait mechanics GOALS: SHORT TERM GOALS/INTERMEDIATE GOALS (4-8 WEEKS) 1. Patient will be instructed in and independent with [facility] with focus on hip and lower extremity strengthening. 2. Pain in right knee will be 0-3/10 on a 0-10 scale when standing more than 20 minutes, walking 300 yards. 3. Pt. will demonstrate up to a 5-10 degree improvement into AROM extension of (B) knees; and will be painfree upon at least 1 of the 3 following motions: right knee flexion, (B) knee extension. 4. Pt. will demonstrate up to 1/2 grade improvement upon MMTs of (B) hip abductors and (B) hip extensors. 5. Pt. will have negative/painfree response to at least 1 of the 3 following special tests of the right knee: varus stress test, bounce home test, Kolton's sign. 6. Pt. will be independent with use of braces on (B) knees to improve knee mechanics during gait (reducing right knee valgum) PLAN: Patient may be treated 1x/week to five weeks for up to 8 weeks with modalities, manual therapy therapeutic exercises, therapeutic activities, patient education, and reassessments, all only as necessary to progress toward goals set at the initial consult. TODAY'S TREATMENT: 50 MINUTES EVALUATION: 35 MINUTES PATIENT EDUCATION: 15 MINUTES Pt. educated re: use of CORFLEX COOLTEX 13 ANT CL KNEE WRAP OP POP W/HINGE XL (right) and L (left). Pt. educated re: donning/doffing brace, how to hand wash and air dry brace and removal of metal stays. Pt. educated re: need to remove brace if skin irritation or rash, increased swelling above or below brace or if any discomfort. Pt. appeared to understand instruction in use. NEXT TREATMENT: Instruction in exercises for HEP - hamstring stretch; hip stabilization exercises/lower extremity strengthening exercises. /debra/ SASKIA MATAMOROS PT Signed: 05/18/2024 14:06 SASKIA MATAMOROS-CARLOS [facility]
== END 2024-10-18 23:59 | disposition home or self-care (01) ==
LOC: RAD 14:59
PROVIDERS: PCP Nurse Practitioner; Visit Provider Nurse Practitioner
DX: R05.9 Cough, unspecified (principal)
CPT/HCPCS: 71046